=== PATIENT | female | born 1955 | race Caucasian/White ===

== ENCOUNTER → 2016-07-04 | Outpatient (CLI) | payer OTHER ==
[~2016-07-04] MED LIST: GADOBUTROL 10 ML VIAL IVP ONE
== END ==
LOC: FIMAGING 08:28
PROVIDERS: ATTEND Physician Assistant
DX: M99.73 Connective tissue and disc stenosis of intervertebral foramina of lumbar region (principal); M51.27 Other intervertebral disc displacement, lumbosacral region; Z98.1 Arthrodesis status
CPT/HCPCS: A9585

== ENCOUNTER 2016-10-25 16:02 | Inpatient (IN) | payer OTHER ==
[2016-10-25] MEDS ORDERED: fentaNYL 100 MCG/2 ML INJ IVP ONE (16:32)
[2016-10-25] MEDS ORDERED: ONDANSETRON 4 MG/2 ML VIAL IVP ONE (16:32)
--- NOTE | 2016-10-25 16:34 | EDPHY ---
H & P Time Seen by Provider: 10/25/16 16:23 HPI/ROS: CHIEF COMPLAINT: Abdominal pain HISTORY OF PRESENT ILLNESS: Patient developed vomiting and diarrhea 2 days ago and then generalized abdominal cramping and pain. Today the vomiting has subsided but she still had diarrhea about 10-20 times with no blood or melena. She has now moderate to severe right lower quadrant abdominal pain associated with a fever to 101.6. It does not radiate but it is worse with any movement walking or palpation. REVIEW OF SYSTEMS: Eye: no change in vision ENT: no sore throat Cardiac: no chest pain or syncope Pulmonary: no cough or SOB Abdomen: HPI Musculoskeletal: no back pain Skin: no rash Neuro: no headache Constitutional: HPI : no urinary symptoms A comprehensive 10 point review of systems is otherwise negative aside from elements mentioned in the history of present illness. PAST MEDICAL HISTORY: x2, hypertension, spinal fusion, knee replacements bilateral. Social history: Here with her parents, no alcohol General Appearance: Alert and conversant, cooperative. Eyes: No scleral icterus. ENT, Mouth: Dry mucous membranes. Respiratory: Normal respiratory effort, breath sounds equal, lungs are clear to auscultation. Cardiovascular: Regular rate and rhythm. Gastrointestinal: Right lower quadrant and right upper quadrant guarding, very tender. Bowel sounds are decreased. Neurological: Alert and oriented x3. Normally conversant. Face symmetric, normal movement and sensation in all extremities. Skin: Warm and dry, no rashes. Musculoskeletal: No peripheral edema and no joint swelling. Psychiatric: Not agitated. Emergency Department course/MDM: Clinically dehydrated, normal saline 1 L and fentanyl 100 mcg and Zofran 4 mg IV. I-STAT and CT scanning discussed and consented. 1810: CT per i shows diverticulitis with SBO. Results discussed with the patient after CT resulted. Additional 1 mg IV Dilaudid. Creatinine more likely related to dehydration. Patient's diarrhea clinically does not fit with radiologist diagnosis of bowel obstruction. Invanz 1 g IV. Admission to hospitalist with General surgery consultation. Smoking Status: Never smoked Constitutional: Initial Vital Signs Temperature (C) 36.8 C 10/25/16 16:11 Heart Rate 110 H 10/25/16 16:11 Respiratory Rate 20 10/25/16 16:11 Blood Pressure 109/69 10/25/16 16:11 O2 Sat (%) 97 10/25/16 16:11 O2 Delivery Mode Room Air Allergies/Adverse Reactions: SEASONAL Allergy (Mild, Uncoded 10/25/16 16:09) Congestion Home Medications: Medication Instructions Recorded Acetaminophen [Tylenol 325mg (*)] 650 mg PO Q4-6PRN PRN 10/25/16 Aspirin EC [Aspirin EC 81 mg (*)] 81 mg PO DAILY 10/25/16 Herbals/Supplements -Info Only 1 ea PO DAILY 10/25/16 Ibuprofen [Motrin (*)] 600 mg PO Q4-6PRN PRN 10/25/16 Lisinopril [Zestril 20 mg (*)] 20 mg PO DAILY 10/25/16 Meloxicam 15 mg PO DAILY 10/25/16 [place]-3 Fatty Acids [Fish Oil 1000 1,000 mg PO DAILY 10/25/16 mg (*)] amLODIPine BESYLATE [Norvasc 2.5 2.5 mg PO DAILY 10/25/16 mg (*)] Medical Decision Making - Diagnostics Imaging Results: Imaging Impressions Abdomen/Pelvis CT 10/25/16 17:02 Impression: 1. Acute sigmoid diverticulitis with inflammatory changes throughout the mesentery resulting in small bowel obstruction. 2. No drainable abscess or pneumoperitoneum. 3. Prior cholecystectomy without biliary ductal dilation. 4. Nonobstructive right nephrolithiasis. 5. Atherosclerotic aorta without aneurysm. Attention: This CT examination is specifically designed to evaluate patients who are clinically suspected of having acute obstructive uropathy. This examination does not use radiographic contrast, and as such, provides only a limited evaluation of the abdomen, pelvis and retroperitoneum. If there is further clinical suspicion for pathological conditions other than obstructive uropathy, a complete CT evaluation of the abdomen and pelvis utilizing intravenous, oral, and rectal contrast should be considered. Findings and recommendations discussed with Emergency Department physician, Bjorn Sherwood at 1810 hour, 10/25/2016. Final report concurs with initial preliminary interpretation. Differential Diagnosis: Differential considered including but not limited to diverticulitis, perforated intestine, appendicitis, gastroenteritis. Consult/Admit Bed Type: [facility], Lupe Anguiano will consult - Data Points Laboratory Results: Laboratory Results 10/25/16 16:53 10/25/16 18:11 10/25/16 10/25/16 10/25/16 18:11 16:53 16:53 WBC 20.24 10^3/uL H 10^3/uL (3.80-9.50) RBC 4.00 10^6/uL L 10^6/uL (4.18-5.33) Hgb 12.7 g/dL g/dL (12.6-16.3) POC Hgb Hct 37.6 % L % (38.0-47.0) POC Hct MCV 94.0 fL fL (81.5-99.8) MCH 31.8 pg pg (27.9-34.1) MCHC 33.8 g/dL g/dL (32.4-36.7) RDW 12.7 % % (11.5-15.2) Plt Count 426 10^3/uL H 10^3/uL (150-400) MPV 10.0 fL fL (8.7-11.7) Neut % (Auto) 82.6 % H % (39.3-74.2) Lymph % (Auto) 9.5 % L % (15.0-45.0) [place] % (Auto) 6.9 % % (4.5-13.0) Eos % (Auto) 0.1 % L % (0.6-7.6) Baso % (Auto) 0.3 % % (0.3-1.7) Nucleat RBC Rel Count 0.0 % % (0.0-0.2) Absolute Neuts (auto) 16.72 10^3/uL H 10^3/uL (1.70-6.50) Absolute Lymphs (auto) 1.92 10^3/uL 10^3/uL (1.00-3.00) Absolute Monos (auto) 1.39 10^3/uL H 10^3/uL (0.30-0.80) Absolute Eos (auto) 0.03 10^3/uL 10^3/uL (0.03-0.40) Absolute Basos (auto) 0.06 10^3/uL 10^3/uL (0.02-0.10) Absolute Nucleated RBC 0.00 10^3/uL 10^3/uL (0-0.01) Immature Gran % 0.6 % % (0.0-1.1) Immature Gran # 0.12 10^3/uL H 10^3/uL (0.00-0.10) POC Sodium Sodium 138 mEq/L mEq/L TNP (134-144) POC Potassium Potassium 3.6 mEq/L mEq/L TNP (3.5-5.2) POC Chloride Chloride 98 mEq/L mEq/L TNP (97-110) Carbon Dioxide 25 mEq/l mEq/l TNP (22-31) Anion Gap 15 mEq/L mEq/L TNP (8-16) POC BUN BUN 32 mg/dL H mg/dL TNP (7-23) Creatinine 2.1 mg/dL H mg/dL TNP (0.6-1.0) POC Creatinine Estimated GFR 24 TNP Glucose 90 mg/dL mg/dL TNP (70-100) POC Glucose Calcium 9.2 mg/dL mg/dL TNP (8.5-10.4) Total Bilirubin 1.8 mg/dL H mg/dL TNP (0.1-1.4) Conjugated Bilirubin 1.3 mg/dL H mg/dL TNP (0.0-0.5) Unconjugated Bilirubin 0.5 mg/dL mg/dL TNP (0.0-1.1) AST 28 IU/L IU/L TNP (14-46) ALT 48 IU/L IU/L TNP (9-52) Alkaline Phosphatase 122 IU/L IU/L TNP (38-126) Total Protein 6.6 g/dL g/dL TNP (6.3-8.2) Albumin 3.7 g/dL g/dL TNP (3.5-5.0) Lipase 45 IU/L IU/L TNP (23-300) 10/25/16 16:50 WBC RBC Hgb POC Hgb 13.3 gm/dL gm/dL (12.6-16.3) Hct POC Hct 39 % % (38-47) MCV MCH MCHC RDW Plt Count MPV Neut % (Auto) Lymph % (Auto) [place] % (Auto) Eos % (Auto) Baso % (Auto) Nucleat RBC Rel Count Absolute Neuts (auto) Absolute Lymphs (auto) Absolute Monos (auto) Absolute Eos (auto) Absolute Basos (auto) Absolute Nucleated RBC Immature Gran % Immature Gran # POC Sodium 137 mEq/L mEq/L (134-144) Sodium POC Potassium 5.0 mEq/L mEq/L (3.3-5.0) Potassium POC Chloride 99 mEq/L mEq/L (97-110) Chloride Carbon Dioxide Anion Gap POC BUN 43 mg/dL H mg/dL (7-23) BUN Creatinine POC Creatinine 2.1 mg/dL H mg/dL (0.6-1.0) Estimated GFR Glucose POC Glucose 102 mg/dL H mg/dL (70-100) Calcium Total Bilirubin Conjugated Bilirubin Unconjugated Bilirubin AST ALT Alkaline Phosphatase Total Protein Albumin Lipase Medications Given: Discontinued Medications Fentanyl (Sublimaze) 100 mcg IVP EDNOW ONE Stop: 10/25/16 16:33 Last Admin: 10/25/16 17:12 Dose: 100 mcg Hydromorphone HCl (Dilaudid) 1 mg IVP EDNOW ONE Stop: 10/25/16 18:27 Last Admin: 10/25/16 18:33 Dose: 1 mg Sodium Chloride (Ns) 1,000 mls @ 0 mls/hr IV EDNOW ONE; Wide Open PRN Reason: Protocol Stop: 10/25/16 16:33 Last Admin: 10/25/16 17:14 Dose: 1,000 mls Sodium Chloride (Ns) 1,000 mls @ 0 mls/hr IV EDNOW ONE; Wide Open PRN Reason: Protocol Stop: 10/25/16 17:03 Last Admin: 10/25/16 17:15 Dose: 1,000 mls Ertapenem 1 gm/ Sodium (Chloride) 100 mls @ 200 mls/hr IV EDNOW ONE PRN Reason: Protocol Stop: 10/25/16 18:55 Last Admin: 10/25/16 18:59 Dose: 100 mls Ondansetron HCl (Zofran) 4 mg IVP EDNOW ONE Stop: 10/25/16 16:33 Last Admin: 10/25/16 17:12 Dose: 4 mg Point of Care Test Results: 10/25/16 16:50 POC Sodium 137 POC Potassium 5.0 POC Chloride 99 POC BUN 43 H POC Creatinine 2.1 H POC Glucose 102 H Departure - Departure Disposition: [facility] Inpatient Acute Clinical Impression: Diverticulitis large intestine Qualifiers: Diverticulitis bleeding: without bleeding Diverticulitis complication: without perforation or abscess Qualified Code(s): K57.32 - Diverticulitis of large intestine without perforation or abscess without bleeding Condition: Good
[2016-10-25] MEDS ORDERED: NS 1,000 ML IV ONE ×2 (17:02→18:26)
[2016-10-25 17:07] LABS: % IMMATURE GRANULYOCYTES 0.6 % (0.0-1.1); ABSOLUTE IMMATURE GRANULOCYTES 0.12 10^3/uL (0.00-0.10); ADD DIFF? NO; ADD MORPH? NO; ADD SCAN? NO; ATYPICAL LYMPHOCYTE FLAG 0 (0-99); FRAGMENT RBC FLAG 0 (0-99); HEMATOCRIT 37.6 % (38.0-47.0); HEMOGLOBIN 12.7 g/dL (12.6-16.3); LEFT SHIFT FLG 20 (0-99); LIPEMIA HEMOLYSIS FLAG 90 (0-99); MEAN CELL HEMOGLOBIN 31.8 pg (27.9-34.1); MEAN CELL HEMOGLOBIN CONCENTR. 33.8 g/dL (32.4-36.7); PLATELET CLUMPS FLAG 10 (0-99); PLATELET COUNT 426 10^3/uL (150-400); RED CELL DISTRIBUTION WIDTH 12.7 % (11.5-15.2)
[2016-10-25] MEDS: NS 1,000 ML IV ONE ×2 (17:08→17:14)
[2016-10-25] MEDS ORDERED: ERTAPENEM 1 GM in NS 100 ML IV ONE (18:26)
[2016-10-25] MEDS ORDERED: HYDROmorphONE/DILAUDID 1 MG/ML INJ IVP ONE (18:26)
[2016-10-25 18:42] LABS: ALANINE AMINOTRANSFERASE 48 IU/L (9-52); ALBUMIN 3.7 g/dL (3.5-5.0); ALKALINE PHOSPHATASE 122 IU/L (38-126); ANION GAP 15 mEq/L (8-16); ASPARTATE AMINOTRANSFERASE 28 IU/L (14-46); BILIRUBIN,TOTAL 1.8 mg/dL (0.1-1.4); BILIRUBIN-CONJUGATED 1.3 mg/dL (0.0-0.5); BILIRUBIN-UNCONJUGATED 0.5 mg/dL (0.0-1.1); CALCIUM 9.2 mg/dL (8.5-10.4); CARBON DIOXIDE 25 mEq/l (22-31); CHLORIDE 98 mEq/L (97-110); CREATININE 2.1 mg/dL (0.6-1.0); GLOMERULAR FILTRATION RATE 24; GLUCOSE 90 mg/dL (70-100); POTASSIUM 3.6 mEq/L (3.5-5.2); SODIUM 138 mEq/L (134-144); TOTAL PROTEIN 6.6 g/dL (6.3-8.2)
--- NOTE | 2016-10-25 20:47 | GHP ---
[f rep st] HISTORY AND PHYSICAL DATE OF ADMISSION: 10/25/2016 CHIEF COMPLAINT: A 61-year-old female with a history of hypertension, presenting with nausea, vomiting, diarrhea. These symptoms have been persistent for the last 3 days. She has been unable to keep anything down. Yesterday, she had up to 10 watery stools without blood. Reports fevers, chills , sweats, with temperatures up to 101.7. Also, headache and myalgias. No recent antibiotics no recent travel. Actually, her is hot been hospitalized here, so she has been in and out the hospital. She states that she has been taking care of herself as much and eating a lot of fast food. She did have a [employer] salad 4 days ago that she said has been in the refrigerator for a couple days before eating. REVIEW OF SYSTEMS: I completed a 10-point review of systems. Negative, except as noted in the HPI. PAST MEDICAL HISTORY: 1. Hypertension. 2. Lumbar back pain. PAST SURGICAL HISTORY: 1. Achilles tendon repair. 2. Lumbar back surgery. 3. Carpal tunnel release. 4. . 5. Cholecystectomy. 6. TKA. SOCIAL HISTORY: [place] with her . No alcohol, tobacco, or illicits. FAMILY HISTORY: Father with diverticulitis and CAD with stent. Mother with CAD with stents. MEDICATIONS: Norvasc 2.5 mg daily, lisinopril 20 mg daily, Meloxicam started recently 3 weeks ago for back pain. PHYSICAL EXAM: VITAL SIGNS: Temperature 36.8, blood pressure 106/71, heart rate is 90-110, respirations 18, 96% on room air. GENERAL: An overweight female, ill-appearing, lying in bed. Mildly diaphoretic. HEENT: Dry mucous membranes. Oropharynx clear. CV: Regular rate and rhythm. No murmurs, gallops, or rubs. LUNGS: Clear to auscultation anteriorly. ABDOMEN: Obese. Right lower quadrant and epigastric tenderness with palpation. No rebound or guarding. Quiet bowel sounds throughout. MUSCULOSKELETAL: 5/5 upper and lower extremity strength. NEUROLOGIC: 2 through 12 intact. PSYCHIATRIC: Alert and oriented x3. LABS: WBC 20, hemoglobin 12, hematocrit 37, platelets 426. Sodium 138, potassium 3.8, chloride 98, carbon dioxide 25, BUN 32, creatinine 2.1 (baseline is 0.7). Total bilirubin 1.8 (conjugated 1.3). Abdomen and pelvis CT: Acute sigmoid diverticulitis with inflammatory changes throughout the mesentery, resulting in small bowel obstruction. No adrenal abscess or pneumoperitoneum. Nonobstructive right nephrolithiasis, atherosclerotic aorta without aneurysm, ASSESSMENT AND PLAN: 1. Acute, non-perforated diverticulitis: Patient with elevated white count and significant abdominal pain. Will treat with IV antibiotics, bowel rest, and antiemetics. Dr. Anguiano with Surgery will consult. 2. Leukocytosis: Secondary to diverticulitis. 3. Sepsis: due to diverticulitis. Elevated WBC, tachycardia. 4. Acute diarrhea: Possible bacterial infection. GI PCR pending. 5. Acute kidney injury: Creatinine 2 (baseline is 0.07). This is due to gastrointestinal losses, as well as decreased p.o. intake. Will hydrate with fluids and repeat in the morning. 6. Acute abdominal pain: Secondary to above. Will treat with IV Dilaudid renally dosed. 7. Mild hyperbilirubinemia secondary to gastrointestinal process. Will repeat. 8. Mild hypotension: Secondary to severe dehydration. Hold antihypertensive. 9. Diet: NPO, IV fluids. 10. Deep venous thrombosis prophylaxis: Sequential compression devices. Disposition: The patient warrants inpatient hospitalization given acute diverticulitis, leukocytosis, acute kidney injury, requiring IV fluids and antibiotics. /[id number]/MODL MTDD
[2016-10-25] MEDS: HYDROmorphONE/DILAUDID 1 MG/ML INJ IVP PRN (22:17)
[2016-10-25] MEDS: ONDANSETRON 4 MG/2 ML VIAL IVP PRN (22:17)
[2016-10-25] MEDS: NS 1,000 ML IV SCH (22:27)
--- NOTE | 2016-10-26 01:44 | SOAPPROG ---
SOAP Progress Note Assessment/Plan: Assessment: 61 FEMALE WITH RLQ PAIN AND TENDERNESS 2/2 DIVERTICULITIS/ APPENDIX APPEARS OK ON CT NO PRIOR HX OF DIVERTICULITIS HEENT NONICTERIC CHEST CLEAR COR RR ABD SOFT, TENDER RLQ Plan:OBS, ON ABX, NPO/ SURGERY IF WORSENING 10/26/16 01:41 Objective: Vital Signs Temp Pulse Resp BP Pulse Ox 36.8 C 83 18 102/61 97 10/25/16 23:55 10/25/16 23:55 10/25/16 23:55 10/25/16 23:55 10/25/16 23:55 10/24/16 10/25/16 10/26/16 05:59 05:59 05:59 Intake Total 2400 Balance 2400 ICD10 Worksheet Patient Problems: Problems Problem Status Onset Diverticulitis large intestine Acute Osteoarthritis of knee Acute
[2016-10-26] MEDS: HYDROmorphONE/DILAUDID 1 MG/ML INJ IVP PRN ×6 (02:05→22:49)
[2016-10-26 02:39] LABS: COLOR AMBER; LEUKOCYTE ESTERASE,URINE 2+ (NEGATIVE); NITRITE,URINE NEGATIVE (NEGATIVE)
[2016-10-26 02:57] LABS: BACTERIA 1+ /hpf (NONE SEEN); MUCUS 1+ /lpf (NONE-1+); WBC,URINE 50-182 /hpf (0-3)
[2016-10-26 05:12] LABS: HEMATOCRIT 33.5 % (38.0-47.0); HEMOGLOBIN 10.8 g/dL (12.6-16.3); MEAN CELL HEMOGLOBIN 31.5 pg (27.9-34.1); MEAN CELL HEMOGLOBIN CONCENTR. 32.2 g/dL (32.4-36.7); MEAN CELL VOLUME 97.7 fL (81.5-99.8); RED BLOOD CELL COUNT 3.43 10^6/uL (4.18-5.33); RED CELL DISTRIBUTION WIDTH 12.8 % (11.5-15.2)
[2016-10-26] MEDS: NS 1,000 ML IV SCH (05:15)
[2016-10-26 05:29] LABS: ALANINE AMINOTRANSFERASE 39 IU/L (9-52); ALBUMIN 3.1 g/dL (3.5-5.0); ALKALINE PHOSPHATASE 108 IU/L (38-126); ANION GAP 14 mEq/L (8-16); ASPARTATE AMINOTRANSFERASE 29 IU/L (14-46); BILIRUBIN,TOTAL 1.2 mg/dL (0.1-1.4); CALCIUM 8.3 mg/dL (8.5-10.4); CARBON DIOXIDE 20 mEq/l (22-31); CHLORIDE 106 mEq/L (97-110); GLOMERULAR FILTRATION RATE 57; GLUCOSE 79 mg/dL (70-100); POTASSIUM 3.6 mEq/L (3.5-5.2); SODIUM 140 mEq/L (134-144); TOTAL PROTEIN 5.7 g/dL (6.3-8.2)
[2016-10-26] MEDS: ERTAPENEM 1 GM in NS 100 ML IV SCH (08:06)
[2016-10-26] MEDS: ONDANSETRON 4 MG/2 ML VIAL IVP PRN ×2 (08:06→20:03)
[2016-10-26] MEDS ORDERED: ENOXAPARIN 40 MG/0.4 ML SYR SC SCH (09:00)
--- NOTE | 2016-10-26 13:48 | HOSPPROG ---
Hospitalist Progress Note Assessment/Plan: 1. Acute, non perforated diverticulitis with sepsis (abnl WBC, tachycardia) -continue NPO, IVF, discussed care plan with surgery -may need surgical intervention, will continue with obs for now -diarrhea improved, GI panel pending 2. SBO -IVF, NPO -appreciate surgery assistance 3. OCTAVIO -creatinine normalized with IVF -watch closely 4. chronic lumbar pain -hold meloxicam 5. HTN -home meds 6. Anemia -watch for stability -no active signs bleeding PCP FULL CODE DVT prophy- TEDS/SCDs, hold pharm as possible surgical itervention DISPO- > 2 mdnts because of need for IV abx, sepsis Subjective: Less diarrhea but still in pain. Very dry mouth (has xerostomia t baseline). No n/v. on second floor inpt! Objective: Vital Signs Temp Pulse Resp BP Pulse Ox 98.5 F 93 16 106/66 93 10/26/16 09:03 10/26/16 09:03 10/26/16 09:03 10/26/16 09:03 10/26/16 09:03 Laboratory Results 10/26/16 05:06 10/26/16 05:06 10/25/16 10/26/16 10/27/16 11:59 11:59 11:59 Intake Total 3272 Output Total 600 Balance 2672 - Time Spent With Patient Time Spent with Patient: greater than 25 minutes Time Spent with Patient: Greater than 25 minutes spent on this patients care, greater than 50% of time spent counseling, educating, and coordinating care regarding the above mentioned plan. - Pending Discharge Pending Discharge Within 24 Hours: No - Physical Exam Constitutional: no apparent distress, appears nourished, obese, uncomfortable Eyes: anicteric sclera, EOMI Ears, Nose, Mouth, Throat: hearing normal, other (dry MM) Cardiovascular: regular rate and rhythym, no murmur, rub, or gallop, No edema Respiratory: no respiratory distress, no rales or rhonchi, clear to auscultation Gastrointestinal: tenderness (throughout), No guarding, No rebound, No distension Skin: warm Psychiatric: interacting appropriately, not anxious, not encephalopathic, thought process linear ICD10 Worksheet Patient Problems: Problems Problem Status Onset Diverticulitis large intestine Acute Osteoarthritis of knee Acute
[2016-10-26] MEDS ORDERED: MBX SOLN 30 ML BOTTLE PO PRN (14:08)
[2016-10-26] MEDS ORDERED: ORAL BALANCE GEL TUBE PO PRN (14:08)
--- NOTE | 2016-10-26 14:49 | SOAPPROG ---
[facility] Progress Note Assessment/Plan: Assessment/Plan: 61 Y F with probable sigmoid diverticulitis with significant inflammation of mesentery. C/o RLQ pain. Afebrile,WBC's trending down, but pain seems slightly worse to patient. Diarrhea stopped. Cannot r/o need for surgery at this point. Continue NPO. Will discuss with Dr. Anguiano right away. S: IV pain meds seem to to help as much. nausea improved with meds. diarrhea stopped. O: alert, mild distres--just appears uncomfortable ctab rrr abd obese, soft, +RLQ>RUQ tenderness. rare BS. 10/26/16 14:40 Objective: Vital Signs Temp Pulse Resp BP Pulse Ox 36.9 C 93 16 106/66 93 10/26/16 09:03 10/26/16 09:03 10/26/16 09:03 10/26/16 09:03 10/26/16 09:03 Laboratory Results 10/26/16 05:06 10/26/16 05:06 10/25/16 10/26/16 10/27/16 05:59 05:59 05:59 Intake Total 3272 Output Total 600 Balance 2672 ICD10 Worksheet Patient Problems: Problems Problem Status Onset Diverticulitis large intestine Acute Osteoarthritis of knee Acute
[2016-10-26] MEDS: BIOTENE DRY MOUTH MOUTHWASH 237 ML BTL MM PRN (15:51)
[2016-10-26] MEDS: D5W 1/2 NS 1,000 ML IV SCH (20:52)
[2016-10-27] MEDS: HYDROmorphONE/DILAUDID 1 MG/ML INJ IVP PRN ×3 (02:33→09:04)
[2016-10-27] MEDS: ONDANSETRON 4 MG/2 ML VIAL IVP PRN ×3 (02:44→23:42)
[2016-10-27] MEDS: D5W 1/2 NS 1,000 ML IV SCH ×2 (05:27→18:05)
[2016-10-27 05:52] LABS: % IMMATURE GRANULYOCYTES 1.1 % (0.0-1.1); ABSOLUTE IMMATURE GRANULOCYTES 0.12 10^3/uL (0.00-0.10); ADD DIFF? NO; ADD MORPH? NO; ADD SCAN? NO; ATYPICAL LYMPHOCYTE FLAG 0 (0-99); FRAGMENT RBC FLAG 0 (0-99); HEMATOCRIT 32.9 % (38.0-47.0); HEMOGLOBIN 10.6 g/dL (12.6-16.3); LEFT SHIFT FLG 10 (0-99); LIPEMIA HEMOLYSIS FLAG 80 (0-99); MEAN CELL HEMOGLOBIN 31.6 pg (27.9-34.1); MEAN CELL HEMOGLOBIN CONCENTR. 32.2 g/dL (32.4-36.7); MEAN CELL VOLUME 98.2 fL (81.5-99.8); MEAN PLATELET VOLUME 9.3 fL (8.7-11.7); PLATELET CLUMPS FLAG 0 (0-99); PLATELET COUNT 354 10^3/uL (150-400); RED BLOOD CELL COUNT 3.35 10^6/uL (4.18-5.33); RED CELL DISTRIBUTION WIDTH 13.2 % (11.5-15.2)
[2016-10-27 06:10] LABS: ALANINE AMINOTRANSFERASE 36 IU/L (9-52); ALBUMIN 2.9 g/dL (3.5-5.0); ALKALINE PHOSPHATASE 112 IU/L (38-126); ANION GAP 10 mEq/L (8-16); ASPARTATE AMINOTRANSFERASE 29 IU/L (14-46); BILIRUBIN,TOTAL 1.1 mg/dL (0.1-1.4); CALCIUM 8.5 mg/dL (8.5-10.4); CARBON DIOXIDE 25 mEq/l (22-31); CHLORIDE 104 mEq/L (97-110); CREATININE 0.8 mg/dL (0.6-1.0); GLOMERULAR FILTRATION RATE > 60; GLUCOSE 112 mg/dL (70-100); POTASSIUM 3.8 mEq/L (3.5-5.2); SODIUM 139 mEq/L (134-144); TOTAL PROTEIN 5.5 g/dL (6.3-8.2)
[2016-10-27] MEDS ORDERED: LISINOPRIL 20 MG TAB PO SCH (09:00)
[2016-10-27] MEDS: ERTAPENEM 1 GM in NS 100 ML IV SCH (09:05)
--- NOTE | 2016-10-27 09:51 | SOAPPROG ---
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
--- NOTE | 2016-10-27 16:50 | HOSPPROG ---
Hospitalist Progress Note Assessment/Plan: * Acute diverticulitis -Invanz * Severe Sepsis - due to above * SBO - improved -d/w Dr. Anguiano - okay to advance to clears * HTN -continue Norvasc * ARF - resolved Subjective: Much better this afternoon. Pain decreased Objective: Vital Signs Temp Pulse Resp BP Pulse Ox 36.9 C 74 16 113/72 98 10/27/16 12:26 10/27/16 12:26 10/27/16 12:26 10/27/16 12:26 10/27/16 12:26 Microbiology 10/27/16 08:57 Gastrointestinal Tract Panel (PCR) - Final Stool No Organism Detected Laboratory Results 10/27/16 05:31 10/27/16 05:31 10/26/16 10/27/16 10/28/16 05:59 05:59 05:59 Intake Total 3272 2432 Output Total 600 1900 Balance 2672 532 using iv DILAUDID FOR PAIN CT reviewed - acute diverticulitis with SBO - Physical Exam Constitutional: no apparent distress, appears nourished, not in pain Cardiovascular: regular rate and rhythym, no murmur, rub, or gallop Respiratory: no respiratory distress, no rales or rhonchi, clear to auscultation Gastrointestinal: normoactive bowel sounds, soft, non-tender abdomen, no palpable masses Skin: no rashes or abrasions, no fluctuance, no induration Neurologic: AAOx3, sensation intact bilaterally Psychiatric: interacting appropriately, not anxious, not encephalopathic, thought process linear ICD10 Worksheet Patient Problems: Problems Problem Status Onset Diverticulitis large intestine Acute Osteoarthritis of knee Chronic
[2016-10-27] MEDS: ACETAMINOPHEN 325 MG TAB PO PRN (18:05)
[2016-10-28] MEDS: D5W 1/2 NS 1,000 ML IV SCH (02:15)
[2016-10-28] MEDS: ACETAMINOPHEN 325 MG TAB PO PRN ×3 (04:52→19:04)
[2016-10-28] MEDS: ONDANSETRON 4 MG/2 ML VIAL IVP PRN ×2 (04:52→09:42)
[2016-10-28 05:45] LABS: % IMMATURE GRANULYOCYTES 1.4 % (0.0-1.1); ABSOLUTE IMMATURE GRANULOCYTES 0.14 10^3/uL (0.00-0.10); ADD DIFF? NO; ADD MORPH? NO; ADD SCAN? NO; ATYPICAL LYMPHOCYTE FLAG 30 (0-99); FRAGMENT RBC FLAG 0 (0-99); HEMATOCRIT 32.4 % (38.0-47.0); HEMOGLOBIN 10.5 g/dL (12.6-16.3); LEFT SHIFT FLG 10 (0-99); LIPEMIA HEMOLYSIS FLAG 80 (0-99); MEAN CELL HEMOGLOBIN 31.5 pg (27.9-34.1); MEAN CELL HEMOGLOBIN CONCENTR. 32.4 g/dL (32.4-36.7); MEAN CELL VOLUME 97.3 fL (81.5-99.8); PLATELET CLUMPS FLAG 0 (0-99); PLATELET COUNT 354 10^3/uL (150-400); RED BLOOD CELL COUNT 3.33 10^6/uL (4.18-5.33); RED CELL DISTRIBUTION WIDTH 13.1 % (11.5-15.2)
[2016-10-28 06:00] LABS: ANION GAP 11 mEq/L (8-16); CALCIUM 8.6 mg/dL (8.5-10.4); CARBON DIOXIDE 24 mEq/l (22-31); CHLORIDE 101 mEq/L (97-110); CREATININE 0.7 mg/dL (0.6-1.0); GLOMERULAR FILTRATION RATE > 60; GLUCOSE 122 mg/dL (70-100); POTASSIUM 3.5 mEq/L (3.5-5.2); SODIUM 136 mEq/L (134-144)
[2016-10-28] MEDS: ERTAPENEM 1 GM in NS 100 ML IV SCH (09:29)
[2016-10-28] MEDS: ASPIRIN EC 81 MG TAB PO SCH (09:29)
--- NOTE | 2016-10-28 13:07 | HOSPPROG ---
Hospitalist Progress Note Assessment/Plan: * Acute diverticulitis -Invanz * Severe Sepsis - due to above * SBO - due to inflammation of acute diverticulitis -clinically improved - flatus/BM -check KUB -advance diet slowly * HTN -continue Norvasc * ARF - resolved * Obesity - BMI 36 Subjective: Diarrhea last night. Tolerating clear liquids although they did make her feel full. Got hungry for sandwich last night. Objective: Vital Signs Temp Pulse Resp BP Pulse Ox 36.9 C 75 16 120/82 H 94 10/28/16 12:33 10/28/16 12:33 10/28/16 12:33 10/28/16 12:33 10/28/16 12:33 Microbiology 10/27/16 08:57 Gastrointestinal Tract Panel (PCR) - Final Stool No Organism Detected Laboratory Results 10/28/16 05:34 10/28/16 05:34 10/27/16 10/28/16 10/29/16 05:59 05:59 05:59 Intake Total 2432 100 Output Total 1900 500 Balance 532 -400 - Physical Exam Constitutional: no apparent distress, appears nourished, not in pain Cardiovascular: regular rate and rhythym, no murmur, rub, or gallop Respiratory: no respiratory distress, no rales or rhonchi, clear to auscultation Gastrointestinal: normoactive bowel sounds, soft, non-tender abdomen, no palpable masses Skin: no rashes or abrasions, no fluctuance, no induration Neurologic: AAOx3, sensation intact bilaterally Psychiatric: interacting appropriately, not anxious, not encephalopathic, thought process linear ICD10 Worksheet Patient Problems: Problems Problem Status Onset Diverticulitis large intestine Acute Osteoarthritis of knee Chronic
--- NOTE | 2016-10-28 13:40 | SOAPPROG ---
SOAP Progress Note Assessment/Plan: Assessment: 61 yo female with probable sigmoid diverticulitis with significant inflammation of mesentary who is complaining of RLQ abdominal pain and nausea. Afebrile, WBC trending down Continue pain control Continue clear liquid diet Continue abx Appreciate hospitalist S: Pain improved today. States she can now push on her belly without severe pain. Had one episode of diarrhea last night, none today. Tolerating clears. Denied N/V, F/C. O: Patient sitting up in chair, NAD Afebrile No increased WOB Abdomen obese, hard and mildly TTP in the RLQ +BS Objective: Vital Signs Temp Pulse Resp BP Pulse Ox 36.9 C 75 16 120/82 H 94 10/28/16 12:33 10/28/16 12:33 10/28/16 12:33 10/28/16 12:33 10/28/16 12:33 Microbiology 10/27/16 08:57 Gastrointestinal Tract Panel (PCR) - Final Stool No Organism Detected Laboratory Results 10/28/16 05:34 10/28/16 05:34 10/27/16 10/28/16 10/29/16 05:59 05:59 05:59 Intake Total 2432 100 Output Total 1900 500 Balance 532 -400 ICD10 Worksheet Patient Problems: Problems Problem Status Onset Diverticulitis large intestine Acute Osteoarthritis of knee Chronic
[2016-10-28] MEDS: ONDANSETRON DISINTEGRATING 4 MG TAB PO PRN (22:08)
[2016-10-29] MEDS: ACETAMINOPHEN 325 MG TAB PO PRN ×3 (04:17→23:03)
[2016-10-29 05:17] LABS: ABSOLUTE NRBC COUNT 0.03 10^3/uL (0-0.01); ADD DIFF? YES; ADD MORPH? NO; FRAGMENT RBC FLAG 0 (0-99); HEMATOCRIT 31.8 % (38.0-47.0); HEMOGLOBIN 10.1 g/dL (12.6-16.3); LEFT SHIFT FLG 30 (0-99); LIPEMIA HEMOLYSIS FLAG 80 (0-99); MEAN CELL HEMOGLOBIN CONCENTR. 31.8 g/dL (32.4-36.7); MEAN CELL VOLUME 97.5 fL (81.5-99.8); MEAN PLATELET VOLUME 8.9 fL (8.7-11.7); NRBC-AUTO% 0.3 % (0.0-0.2); PLATELET CLUMPS FLAG 0 (0-99); PLATELET COUNT 366 10^3/uL (150-400); RED BLOOD CELL COUNT 3.26 10^6/uL (4.18-5.33)
[2016-10-29 05:18] LABS: ATYPICAL LYMPHOCYTE FLAG 110 (0-99)
[2016-10-29 05:19] LABS: ADD SCAN? NO
[2016-10-29 05:31] LABS: ANION GAP 9 mEq/L (8-16); CALCIUM 9.1 mg/dL (8.5-10.4); CARBON DIOXIDE 28 mEq/l (22-31); CHLORIDE 102 mEq/L (97-110); CREATININE 0.7 mg/dL (0.6-1.0); GLOMERULAR FILTRATION RATE > 60; GLUCOSE 103 mg/dL (70-100); POTASSIUM 3.7 mEq/L (3.5-5.2); SODIUM 139 mEq/L (134-144)
[2016-10-29 06:04] LABS: PLATELET ESTIMATE ADEQUATE (ADEQ)
[2016-10-29] MEDS: ASPIRIN EC 81 MG TAB PO SCH (08:56)
[2016-10-29] MEDS: ERTAPENEM 1 GM in NS 100 ML IV SCH (08:58)
--- NOTE | 2016-10-29 10:31 | SOAPPROG ---
SOAP Progress Note Assessment/Plan: Assessment: 61 yo female with probable sigmoid diverticulitis with significant inflammation of mesentery who is complaining of RLQ abdominal pain and nausea. Afebrile, WBC trending down Continue pain control Continue clear liquid diet Continue abx Appreciate hospitalist S: Patient experiencing achy RLQ pain and nausea associated with consumption of her clear liquid diet. Having small amount of diarrhea today. Denied vomiting, F /C. O: Patient sitting up in chair, NAD Afebrile No increased WOB Abdomen obese, softening and mildly TTP in the RLQ +BS Objective: Vital Signs Temp Pulse Resp BP Pulse Ox 36.7 C 70 16 120/83 H 94 10/29/16 09:08 10/29/16 09:08 10/29/16 09:08 10/29/16 09:08 10/29/16 09:08 Laboratory Results 10/29/16 03:50 10/29/16 03:50 10/28/16 10/29/16 10/30/16 05:59 05:59 05:59 Intake Total 100 750 Output Total 500 200 Balance -400 550 ICD10 Worksheet Patient Problems: Problems Problem Status Onset Diverticulitis large intestine Acute Osteoarthritis of knee Chronic
--- NOTE | 2016-10-29 15:22 | HOSPPROG ---
Hospitalist Progress Note Assessment/Plan: * Acute diverticulitis -Invanz * Severe Sepsis - due to above * SBO - due to inflammation of acute diverticulitis -slow improvement -continue clear liquids * HTN -continue Norvasc * ARF - resolved * Obesity - BMI 36 Subjective: Some increased pain with PO last night. Objective: Vital Signs Temp Pulse Resp BP Pulse Ox 36.7 C 70 16 120/83 H 94 10/29/16 09:08 10/29/16 09:08 10/29/16 09:08 10/29/16 09:08 10/29/16 09:08 Laboratory Results 10/29/16 03:50 10/29/16 03:50 10/28/16 10/29/16 10/30/16 05:59 05:59 05:59 Intake Total 100 750 Output Total 500 200 Balance -400 550 - Physical Exam Constitutional: no apparent distress, appears nourished, not in pain Cardiovascular: regular rate and rhythym, no murmur, rub, or gallop Respiratory: no respiratory distress, no rales or rhonchi, clear to auscultation Gastrointestinal: normoactive bowel sounds, soft, non-tender abdomen, no palpable masses Skin: no rashes or abrasions, no fluctuance, no induration Neurologic: AAOx3, sensation intact bilaterally Psychiatric: interacting appropriately, not anxious, not encephalopathic, thought process linear ICD10 Worksheet Patient Problems: Problems Problem Status Onset Diverticulitis large intestine Acute Osteoarthritis of knee Chronic
[2016-10-30] MEDS: ACETAMINOPHEN 325 MG TAB PO PRN ×3 (03:43→20:18)
[2016-10-30 05:14] LABS: ABSOLUTE NRBC COUNT 0.07 10^3/uL (0-0.01); ADD DIFF? YES; ADD MORPH? NO; FRAGMENT RBC FLAG 0 (0-99); HEMOGLOBIN 10.1 g/dL (12.6-16.3); LEFT SHIFT FLG 40 (0-99); LIPEMIA HEMOLYSIS FLAG 80 (0-99); MEAN CELL HEMOGLOBIN 31.7 pg (27.9-34.1); MEAN CELL HEMOGLOBIN CONCENTR. 32.6 g/dL (32.4-36.7); MEAN CELL VOLUME 97.2 fL (81.5-99.8); MEAN PLATELET VOLUME 8.9 fL (8.7-11.7); NRBC-AUTO% 0.6 % (0.0-0.2); PLATELET CLUMPS FLAG 0 (0-99); PLATELET COUNT 438 10^3/uL (150-400); RED BLOOD CELL COUNT 3.19 10^6/uL (4.18-5.33); RED CELL DISTRIBUTION WIDTH 13.1 % (11.5-15.2)
[2016-10-30 05:26] LABS: ADD SCAN? NO; ATYPICAL LYMPHOCYTE FLAG 160 (0-99)
[2016-10-30 06:03] LABS: PLATELET ESTIMATE ADEQUATE (ADEQ)
[2016-10-30] MEDS: ASPIRIN EC 81 MG TAB PO SCH (09:03)
[2016-10-30] MEDS: ERTAPENEM 1 GM in NS 100 ML IV SCH (10:07)
--- NOTE | 2016-10-30 11:06 | SOAPPROG ---
SOAP Progress Note Assessment/Plan: Assessment/Plan: 61-year-old female with diverticulitis, improving Overnight, the patient had a T-max of 100.8, appears to be having fevers at night. Abdominal pain has completely subsided although she is minimally tender in the right lower quadrant with deep palpation but this is markedly improved from previous. Main complaint today is headache which appears to be better this morning. In addition, her white blood cell count is elevated today 11 from 9. This morning, she is tolerating a diet without any nausea. Given the events overnight, I would like to see how she does today but if she continues to tolerate the diet throughout the day today and does not have a fever tonight I would be okay with her going home tomorrow. 10/30/16 11:03 10/30/16 11:05 Subjective: Denies abdominal pain completely, complains now headache Objective: Vital Signs Temp Pulse Resp BP Pulse Ox 36.8 C 78 16 134/84 H 95 10/30/16 08:00 10/30/16 08:00 10/30/16 08:00 10/30/16 08:00 10/30/16 08:00 Laboratory Results 10/30/16 04:54 10/29/16 03:50 10/29/16 10/30/16 10/31/16 05:59 05:59 05:59 Intake Total 750 1100 Output Total 200 Balance 550 1100 ICD10 Worksheet Patient Problems: Problems Problem Status Onset Diverticulitis large intestine Acute Osteoarthritis of knee Chronic
--- NOTE | 2016-10-30 15:41 | HOSPPROG ---
Hospitalist Progress Note Assessment/Plan: * Acute diverticulitis -Invanz * Severe Sepsis - due to above * SBO - due to inflammation of acute diverticulitis -slow improvement -advance diet * HTN -continue Norvasc * ARF - resolved * Obesity - BMI 36 New low grade fever with night sweats last night. WBC up a little. Continue to monitor as inpatient. If worse fever or leukocytosis overnight, consider repeat CT a/p. If not, then consider discharge on PO antibiotics in am. Subjective: bad night. night sweats. Better again this am. BM are now formed, still lots of flatus Objective: Vital Signs Temp Pulse Resp BP Pulse Ox 36.8 C 71 16 129/77 H 100 10/30/16 15:30 10/30/16 15:30 10/30/16 15:30 10/30/16 15:30 10/30/16 15:30 Laboratory Results 10/30/16 04:54 10/29/16 03:50 10/29/16 10/30/16 10/31/16 05:59 05:59 05:59 Intake Total 750 1100 Output Total 200 Balance 550 1100 - Physical Exam Constitutional: no apparent distress, appears nourished, not in pain Cardiovascular: regular rate and rhythym, no murmur, rub, or gallop Respiratory: no respiratory distress, no rales or rhonchi, clear to auscultation Gastrointestinal: normoactive bowel sounds, soft, non-tender abdomen, no palpable masses Skin: no rashes or abrasions, no fluctuance, no induration Neurologic: AAOx3, sensation intact bilaterally Psychiatric: interacting appropriately, not anxious, not encephalopathic, thought process linear ICD10 Worksheet Patient Problems: Problems Problem Status Onset Diverticulitis large intestine Acute Osteoarthritis of knee Chronic
[2016-10-31] MEDS: ACETAMINOPHEN 325 MG TAB PO PRN ×5 (00:54→21:45)
[2016-10-31 04:51] LABS: ABSOLUTE NRBC COUNT 0.06 10^3/uL (0-0.01); ADD DIFF? YES; ADD MORPH? NO; FRAGMENT RBC FLAG 0 (0-99); HEMATOCRIT 31.7 % (38.0-47.0); HEMOGLOBIN 10.4 g/dL (12.6-16.3); LEFT SHIFT FLG 40 (0-99); LIPEMIA HEMOLYSIS FLAG 80 (0-99); MEAN CELL HEMOGLOBIN 31.8 pg (27.9-34.1); MEAN CELL HEMOGLOBIN CONCENTR. 32.8 g/dL (32.4-36.7); MEAN CELL VOLUME 96.9 fL (81.5-99.8); NRBC-AUTO% 0.5 % (0.0-0.2); PLATELET CLUMPS FLAG 0 (0-99); PLATELET COUNT 463 10^3/uL (150-400); RED BLOOD CELL COUNT 3.27 10^6/uL (4.18-5.33)
[2016-10-31 05:00] LABS: ADD SCAN? NO; ATYPICAL LYMPHOCYTE FLAG 120 (0-99)
[2016-10-31 05:33] LABS: PLATELET ESTIMATE INCREASED (ADEQ)
[2016-10-31 05:34] LABS: POLYCHROMASIA 1+
[2016-10-31] MEDS: ASPIRIN EC 81 MG TAB PO SCH (09:17)
[2016-10-31] MEDS: ERTAPENEM 1 GM in NS 100 ML IV SCH (09:17)
[2016-10-31] MEDS: ONDANSETRON 4 MG/2 ML VIAL IVP PRN ×2 (11:29→21:44)
[2016-10-31] MEDS: PROMETHAZINE HCL 25 MG/ML INJ IVP PRN (12:52)
--- NOTE | 2016-10-31 15:29 | HOSPPROG ---
Hospitalist Progress Note Assessment/Plan: * Acute diverticulitis -Invanz * Severe Sepsis - due to above * SBO - due to inflammation of acute diverticulitis -advanced to regular diet and patient with increased abd pain and nausea * HTN -continue Norvasc * ARF - resolved * Obesity - BMI 36 Due to recurrence of fever, leukocytosis and failure to advance diet, will recheck CT abd/pelvis Back to clear liquids Subjective: Increased abd pain this afternoon with nausea. No RLQ pain, just more diffuse and crampy. Objective: Vital Signs Temp Pulse Resp BP Pulse Ox 37.1 C 79 18 141/88 H 94 10/31/16 12:00 10/31/16 12:00 10/31/16 12:00 10/31/16 12:00 10/31/16 12:00 Laboratory Results 10/31/16 04:29 10/29/16 03:50 10/30/16 10/31/16 11/01/16 05:59 05:59 05:59 Intake Total 1100 1600 480 Balance 1100 1600 480 d/w Dr. Collier - was doing better this am, and thought she might go home today. This afternoon she is feeling much worse. - Physical Exam Constitutional: no apparent distress, appears nourished, not in pain Cardiovascular: regular rate and rhythym, no murmur, rub, or gallop Respiratory: no respiratory distress, no rales or rhonchi, clear to auscultation Gastrointestinal: normoactive bowel sounds, soft, non-tender abdomen, no palpable masses Skin: no rashes or abrasions, no fluctuance, no induration Neurologic: AAOx3, sensation intact bilaterally Psychiatric: interacting appropriately, not anxious, not encephalopathic, thought process linear ICD10 Worksheet Patient Problems: Problems Problem Status Onset Diverticulitis large intestine Acute Osteoarthritis of knee Chronic
[2016-10-31] MEDS ORDERED: IOPAMIDOL (ISOVUE-300) 100 ML BTL ONE (15:36)
--- NOTE | 2016-10-31 17:03 | SOAPPROG ---
SOAP Progress Note Assessment/Plan: Assessment/Plan: 61-year-old female with diverticulitis, improving No fevers overnight, but still 2/10 abdominal pain today. Reviewed CT scan with Dr Licona which shows persistent SBO and poss abscess versus bowel loop but unclear etiology as it may be 2/2 TOA or other MANAGER DAIRY source. Will order TVUS to further delineate. Will also make her NPO at [place] should she indeed have a pelvic anbscess which would require drainage. Discussed with Simone Burton. 10/30/16 11:03 10/30/16 11:05 10/31/16 16:59 Subjective: Feels better, tolerating diet Objective: Vital Signs Temp Pulse Resp BP Pulse Ox 36.9 C 81 20 132/88 H 94 10/31/16 16:00 10/31/16 16:00 10/31/16 16:00 10/31/16 16:00 10/31/16 12:00 Laboratory Results 10/31/16 04:29 10/29/16 03:50 10/30/16 10/31/16 11/01/16 05:59 05:59 05:59 Intake Total 1100 1600 480 Balance 1100 1600 480 ICD10 Worksheet Patient Problems: Problems Problem Status Onset Diverticulitis large intestine Acute Osteoarthritis of knee Chronic
[2016-10-31] MEDS: ZOLPIDEM TARTRATE 5 MG TAB PO PRN (21:45)
[2016-11-01] MEDS: PROMETHAZINE HCL 25 MG/ML INJ IVP PRN (01:08)
[2016-11-01] MEDS: ACETAMINOPHEN 325 MG TAB PO PRN ×2 (01:15→08:35)
[2016-11-01 05:20] LABS: ABSOLUTE NRBC COUNT 0.04 10^3/uL (0-0.01); ADD DIFF? YES; ADD MORPH? NO; ADD SCAN? NO; ATYPICAL LYMPHOCYTE FLAG 60 (0-99); FRAGMENT RBC FLAG 0 (0-99); HEMOGLOBIN 10.9 g/dL (12.6-16.3); LEFT SHIFT FLG 20 (0-99); LIPEMIA HEMOLYSIS FLAG 80 (0-99); MEAN CELL HEMOGLOBIN 31.5 pg (27.9-34.1); MEAN CELL HEMOGLOBIN CONCENTR. 32.1 g/dL (32.4-36.7); MEAN CELL VOLUME 98.3 fL (81.5-99.8); MEAN PLATELET VOLUME 8.6 fL (8.7-11.7); NRBC-AUTO% 0.3 % (0.0-0.2); PLATELET CLUMPS FLAG 0 (0-99); PLATELET COUNT 556 10^3/uL (150-400); RED BLOOD CELL COUNT 3.46 10^6/uL (4.18-5.33); RED CELL DISTRIBUTION WIDTH 13.1 % (11.5-15.2)
[2016-11-01 05:23] LABS: ANION GAP 14 mEq/L (8-16); CALCIUM 9.1 mg/dL (8.5-10.4); CARBON DIOXIDE 29 mEq/l (22-31); CHLORIDE 99 mEq/L (97-110); CREATININE 0.6 mg/dL (0.6-1.0); GLOMERULAR FILTRATION RATE > 60; GLUCOSE 98 mg/dL (70-100); POTASSIUM 3.6 mEq/L (3.5-5.2); SODIUM 142 mEq/L (134-144)
[2016-11-01 06:44] LABS: PLATELET ESTIMATE INCREASED (ADEQ); POLYCHROMASIA 1+
[2016-11-01] MEDS: ERTAPENEM 1 GM in NS 100 ML IV SCH (08:34)
--- NOTE | 2016-11-01 08:55 | HOSPPROG ---
Hospitalist Progress Note Assessment/Plan: #Severe sepsis: WBC not improving. U/s negative for tubo-ovarian abscess #Leukocytosis: not improved on IV abx. Surgery to take to OR. Repeat UA. #Diverticulitis: OR today. On IV Invanz #SBO: due to above. NPO #ARF: resolved #Diet: NPO. IVFs #DVT ppx: SCDs #Disp: warrants inpt admission with sepsis. Cont IV abx, surgery today Subjective: vomited this morning. Mild RLQ pain Objective: Vital Signs Temp Pulse Resp BP Pulse Ox 36.9 C 75 16 132/75 H 96 11/01/16 08:00 11/01/16 08:00 11/01/16 08:00 11/01/16 08:00 11/01/16 08:00 Laboratory Results 11/01/16 04:58 11/01/16 04:58 10/31/16 11/01/16 11/02/16 05:59 05:59 05:59 Intake Total 1600 1240 Balance 1600 1240 - Physical Exam Constitutional: obese, other (tired-appearing) Ears, Nose, Mouth, Throat: moist mucous membranes, hearing normal Cardiovascular: regular rate and rhythym, no murmur, rub, or gallop Respiratory: no respiratory distress, no rales or rhonchi Gastrointestinal: normoactive bowel sounds, distension (mild distension. Mild RLQ TTP, quiet BS), No guarding, No rebound Genitourinary: no bladder fullness Skin: warm Musculoskeletal: full muscle strength Neurologic: AAOx3, CN II-XII Intact ICD10 Worksheet Patient Problems: Problems Problem Status Onset Diverticulitis large intestine Acute Osteoarthritis of knee Chronic
--- NOTE | 2016-11-01 08:56 | SOAPPROG ---
SOAP Progress Note Assessment/Plan: Assessment: 61 yo female with probable sigmoid diverticulitis with significant inflammation of mesentery complaining of RLQ abdominal pain and nausea. Afebrile WBC count continues to be elevated TVUS-low suspicion for abscess CT- mesenteric inflammation OR today for ex lap NPO for surgery Continue pain control Continue abx Appreciate hospitalist S: Patient experiencing RLQ pain and heartburn symptoms. Risks and benefits of surgery discussed. Patient agrees with the surgical plan. O: Patient sitting up in chair, NAD Afebrile No increased WOB Objective: Vital Signs Temp Pulse Resp BP Pulse Ox 36.9 C 75 16 132/75 H 96 11/01/16 08:00 11/01/16 08:00 11/01/16 08:00 11/01/16 08:00 11/01/16 08:00 Laboratory Results 11/01/16 04:58 11/01/16 04:58 10/31/16 11/01/16 11/02/16 05:59 05:59 05:59 Intake Total 1600 1240 Balance 1600 1240 ICD10 Worksheet Patient Problems: Problems Problem Status Onset Diverticulitis large intestine Acute Osteoarthritis of knee Chronic
[2016-11-01] MEDS: ASPIRIN EC 81 MG TAB PO SCH (08:59)
[2016-11-01] MEDS: NS 1,000 ML IV SCH ×2 (08:59→18:18)
[2016-11-01] MEDS: PANTOPRAZOLE SODIUM 40 MG in NS 100 ML IV SCH (09:33)
[2016-11-01] MEDS: BIOTENE DRY MOUTH MOUTHWASH 237 ML BTL MM PRN (09:34)
[2016-11-01] MEDS: ONDANSETRON 4 MG/2 ML VIAL IVP PRN (10:27)
[2016-11-01 10:56] LABS: COLOR YELLOW; LEUKOCYTE ESTERASE,URINE NEGATIVE (NEGATIVE); NITRITE,URINE NEGATIVE (NEGATIVE)
[2016-11-01 11:04] LABS: MUCUS TRACE /lpf (NONE-1+)
[2016-11-01] MEDS ORDERED: LR 1,000 ML IV ONE (11:17)
[2016-11-01] MEDS ORDERED: MIDAZOLAM 2 MG/2 ML VIAL IVP ONE (12:09)
--- NOTE | 2016-11-01 12:10 | SOAPPROG ---
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 RLQ/ +BM AND FLATUS/ GETTING MORE HUNGRY / OVERALL IMPROVING SLOWLY MAY NEED FU CT 11/01/16 12:09 PERSISTENT DISCOMFORT IN THE RIGHT LOWER QUADRANT WITH LEUKOCYTOSIS AND LOW- GRADE FEVER/OVERALL NOT FEELING MUCH IMPROVED/RISKS AND OPTIONS FULLY DISCUSSED PLAN IS PROCEED WITH LAPAROSCOPY POSSIBLE PARTIAL COLECTOMY/PATIENT IS AWARE THAT THIS MAY MEAN A TEMPORARY COLOSTOMY AND SHE WISHES TO PROCEED Objective: Vital Signs Temp Pulse Resp BP Pulse Ox 37.1 C 86 16 144/85 H 92 11/01/16 11:37 11/01/16 11:37 11/01/16 11:37 11/01/16 11:37 11/01/16 11:37 Laboratory Results 11/01/16 04:58 11/01/16 04:58 10/31/16 11/01/16 11/02/16 05:59 05:59 05:59 Intake Total 1600 1240 200 Balance 1600 1240 200 ICD10 Worksheet Patient Problems: Problems Problem Status Onset Diverticulitis large intestine Acute Osteoarthritis of knee Chronic
--- NOTE | 2016-11-01 12:12 | PDANEPAE ---
HOMAR History of Present Illness For ex laparoscopy, poss laparotomy ANE Past Medical History - Cardiovascular History Hx Hypertension: Yes Hx Arrhythmias: No Hx Coronary Artery / Peripheral Vascular Disease: No Hx CHF / Valvular Disease: No Cardiovascular History Comment: NO CP - Pulmonary History Hx COPD: No Hx Asthma/Reactive Airway Disease: No Hx Recent Upper Respiratory Infection: No Hx Oxygen in Use at Home: No Hx Sleep Apnea: No Sleep Apnea Screening Result - Last Documented: Positive Pulmonary History Comment: NO SOB W STAIRS - Neurologic History Hx Cerebrovascular Accident: No Hx Seizures: No Hx Dementia: No Neurologic History Comment: HX MIGRAINES- NONE X 2 Y - Endocrine History Hx Diabetes: No - Renal History Hx Renal Disorders: No - Liver History Hx Hepatic Disorders: No - Neurological & Psychiatric Hx Hx Neurological and Psychiatric Disorders: Yes Neurological / Psychiatric History Comment: OCC MIGRAINE. CLAUSTROPHOBIC - Cancer History Hx Cancer: No - Congenital Disorder History Hx Congenital Disorders: No - GI History Hx Gastrointestinal Disorders: No Gastrointestinal History Comment: Persistent nausea, abdominal pain - Other Health History Other Health History: NONE - Chronic Pain History Chronic Pain: Yes (R KNEE, LOW BACK) - Surgical History Prior Surgeries: RT ACHILLES TENDON REPAIR. LT KNEE SCOPE X 2. LAP FROYLAN. OLENA CARPAL TUNNEL. X 2. REMVL CYST LT HAND. TUBAL LIGATION. R ACHILLES TENDON REP. L TKA 04-03-13. BACK SURG TLIF/ MICRODISC 05-18-13. RUDY GRAF Review of Systems Review of systems is: negative - Exercise capacity Exercise capacity: >=4 METS ANE Patient History - Allergies Allergies/Adverse Reactions: No Allergies Allergy (Verified 11/01/16 09:25) - Home Medications Home medications: home medication list seen and reviewed Home Medications: Acetaminophen [Tylenol 325mg (*)] 650 mg PO Q4-6PRN PRN 10/25/16 [Last Taken 04:00] Aspirin EC [Aspirin EC 81 mg (*)] 81 mg PO DAILY 10/25/16 [Last Taken 10/22/16] Herbals/Supplements -Info Only 1 ea PO DAILY 10/25/16 [Last Taken Unknown] Ibuprofen [Motrin (*)] 600 mg PO Q4-6PRN PRN 10/25/16 [Last Taken 10/25/16 10:00 ] Lisinopril [Zestril 20 mg (*)] 20 mg PO DAILY 10/25/16 [Last Taken 10/22/16] Meloxicam 15 mg PO DAILY 10/25/16 [Last Taken 10/22/16] [place]-3 Fatty Acids [Fish Oil 1000 mg (*)] 1,000 mg PO DAILY 10/25/16 [Last Taken Unknown] amLODIPine BESYLATE [Norvasc 2.5 mg (*)] 2.5 mg PO DAILY 10/25/16 [Last Taken ] - NPO status NPO Status: no food or drink >8 hours NPO Since - Liquids (Date): 11/01/16 NPO Since - Liquids (Time): 09:00 NPO Since - Solids (Date): 10/31/16 NPO Since - Solids (Time): 09:00 - Anes Hx Anes Hx: post operative nausea - Smoking Hx Smoking Status: Never smoked - Family Anes Hx Family Anes Hx: none Family Hx Anesthesia Complications: NONE ANE Labs/Vital Signs - Labs Result Diagrams: 11/01/16 04:58 11/01/16 04:58 - Vital Signs Blood Pressure: 144/85 Heart Rate: 86 Respiratory Rate: 16 O2 Sat (%): 92 Height: 165.1 cm Weight: 99.79 kg ANE Physical Exam - Airway Mallampati Score: Class 3 Mouth exam: normal dental/mouth exam - Pulmonary Pulmonary: no respiratory distress - Cardiovascular Cardiovascular: regular rate and rhythym - ASA Status ASA Status: II
[2016-11-01] MEDS ORDERED: BUPIVACAINE 0.5% 30 ML SDV ONE (12:27)
[2016-11-01] MEDS ORDERED: HEPARIN 1000 UNIT/1 ML MDV ONE (12:27)
[2016-11-01] MEDS ORDERED: ceFAZolin 1 GM/5 ML SYR ONE (12:28)
[2016-11-01] MEDS ORDERED: SUGAMMADEX SODIUM 200 MG/2 ML VIAL IVP ONE (12:35)
[2016-11-01] MEDS ORDERED: ONDANSETRON 4 MG/2 ML VIAL ONE (12:35)
[2016-11-01] MEDS ORDERED: LIDOCAINE 2% 100 MG/5 ML SYR ONE (12:35)
[2016-11-01] MEDS ORDERED: PROPOFOL 200 MG/20 ML VIAL ONE ×2 (12:35→13:13)
[2016-11-01] MEDS ORDERED: DEXAMETHASONE 4 MG/ML VIAL ONE (12:35)
[2016-11-01] MEDS ORDERED: ROCURONIUM 50 MG/5 ML VIAL ONE ×2 (12:35→13:31)
[2016-11-01] MEDS ORDERED: fentaNYL 100 MCG/2 ML INJ ONE ×3 (12:36→16:52)
[2016-11-01] MEDS ORDERED: HYDROmorphONE/DILAUDID 2 MG/ML INJ ONE (13:39)
[2016-11-01] MEDS ORDERED: ACETAMINOPHEN 500 MG TAB PO PRN ×2 (13:44→15:55)
[2016-11-01] MEDS ORDERED: ONDANSETRON 4 MG/2 ML VIAL IVP PRN ×2 (13:44→15:55)
[2016-11-01] MEDS ORDERED: NALOXONE HCL 0.4 MG/ML INJ IVP PRN ×3 (13:44→16:25)
[2016-11-01] MEDS ORDERED: HYDROCODONE/APAP 5/325 TAB PO PRN ×2 (13:44→15:55)
[2016-11-01] MEDS ORDERED: LABETALOL HCL 5 MG/ML 20 ML MDV IVP PRN (13:44)
[2016-11-01] MEDS ORDERED: OXYCODONE/APAP 5/325 TAB PO PRN ×2 (13:44→15:55)
[2016-11-01] MEDS ORDERED: MEPERIDINE 25 MG/ML SYR IVP PRN ×2 (13:44→15:55)
[2016-11-01] MEDS ORDERED: DEXAMETHASONE 4 MG/ML VIAL IVP PRN ×2 (13:44→15:55)
[2016-11-01] MEDS ORDERED: PROMETHAZINE HCL 25 MG/ML INJ IVP PRN ×2 (13:44→15:55)
--- NOTE | 2016-11-01 15:21 | POSTANESTH ---
Post Anesthetic Evaluation Cardiovascular Status: Similar to Pre-Op Cond Respiratory Status: Similar to Pre-op Cond. Level of Consciousness/Mental Status: Can Participate in Eval, Moderately Sleepy Pain Control: Adequate, Prn Tx Ordered Nausea/Vomiting Control: Adequate, Prn Tx Ordered Complications Possibly Related to Anesthesia: None Noted
[2016-11-01] MEDS ORDERED: LABETALOL HCL 50 MG/10 ML SYR IVP PRN (15:55)
[2016-11-01] MEDS ORDERED: fentaNYL 100 MCG/2 ML INJ IVP PRN (15:55)
[2016-11-01] MEDS ORDERED: HYDROmorphONE/DILAUDID 1 MG/ML INJ ONE ×2 (16:01→16:52)
[2016-11-01] MEDS: fentaNYL 100 MCG/2 ML INJ IVP PRN ×3 (16:06→17:30)
[2016-11-01] MEDS: HYDROmorphONE/DILAUDID 1 MG/ML INJ IVP PRN ×8 (16:07→18:10)
--- NOTE | 2016-11-01 16:34 | POSTOPPROG ---
Post Op Note Date of Operation: 11/01/16 Surgeon: Domo Anguiano Monitoring Specialist: Lydia Panda Anesthesiologist: Homer Hutton Anesthesia: GET(General Endotracheal) Pre-op Diagnosis: abdominal pain, inflammation, possible diverticulitis Post-op Diagnosis: perforated diverticulitis with abscess Procedure: ex-laparoscopy, lap c sigmoid colectomy, colostomy, drainage pelvic abscess Findings: gross purulence walled off by inflamed large and small bowel Inf/Abcess present in the surg proc area at time of surgery?: Yes Depth: Organ Space EBL: 50-100 Complications: none Drains: Pilo Leigh Specimen(s): sigmoid colon to pathology and culture to lab
[2016-11-01] MEDS: HYDROmorphONE/DILAUDID 6 MG/30 ML PCA IV PRN (18:17)
[2016-11-02] MEDS: KETOROLAC 15 MG/1 ML SDV IVP SCH ×3 (00:01→11:51)
[2016-11-02] MEDS: NS 1,000 ML IV SCH ×4 (00:04→17:48)
[2016-11-02] MEDS: HYDROmorphONE/DILAUDID 6 MG/30 ML PCA IV PRN ×4 (00:15→17:50)
[2016-11-02] MEDS ORDERED: NS 500 ML IV ONE (00:52)
--- NOTE | 2016-11-02 01:28 | SOAPPROG ---
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 RLQ/ +BM AND FLATUS/ GETTING MORE HUNGRY / OVERALL IMPROVING SLOWLY MAY NEED FU CT 11/01/16 12:09 PERSISTENT DISCOMFORT IN THE RIGHT LOWER QUADRANT WITH LEUKOCYTOSIS AND LOW- GRADE FEVER/OVERALL NOT FEELING MUCH IMPROVED/RISKS AND OPTIONS FULLY DISCUSSED PLAN IS PROCEED WITH LAPAROSCOPY POSSIBLE PARTIAL COLECTOMY/PATIENT IS AWARE THAT THIS MAY MEAN A TEMPORARY COLOSTOMY AND SHE WISHES TO PROCEED 11/02/16 01:27 POSTOP LOTS OF PAIN/WOUND OK/ OSTOMY OK/ LOW GRADE TEMP/ UO OK/ MODERATE ALEXEI OUTPUT AND MODERQTE NG OUT Objective: Vital Signs Temp Pulse Resp BP Pulse Ox 37.0 C 98 16 101/67 98 11/01/16 23:56 11/02/16 00:27 11/01/16 23:56 11/02/16 00:27 11/02/16 00:27 Microbiology 11/01/16 13:56 Gram Stain - Final Pelvis - Eswab 11/01/16 13:56 Mycobacterial Smear (VALERIE) - Final Pelvis - Eswab Mycobacterial Culture - Final Laboratory Results 11/01/16 04:58 11/01/16 04:58 10/31/16 11/01/16 11/02/16 05:59 05:59 05:59 Intake Total 1600 1240 1850 Output Total 2255 Balance 1600 1240 -405 ICD10 Worksheet Patient Problems: Problems Problem Status Onset Diverticulitis large intestine Acute Osteoarthritis of knee Chronic
--- NOTE | 2016-11-02 04:35 | GOP ---
[f rep st] OPERATIVE REPORT DATE OF OPERATION: 11/01/2016 SURGEON: Domo Anguiano MD JAWBONE BREAKER: KRISTY Wilson. ANESTHESIOLOGIST: Homer Hutton MD. PREOPERATIVE DIAGNOSIS: Diverticulitis and possible pelvic abscess and small- bowel obstruction POSTOPERATIVE DIAGNOSIS: Diverticulitis and possible pelvic abscess. And small bowel obstruction PROCEDURE PERFORMED: Laparoscopy, exploratory laparotomy with drainage of pelvic abscess, sigmoid colon resection with Irma's pouch and end-colostomy , splenic flexure mobilization. Lysis of adhesions for small bowel obstruction FINDINGS: Patient was found to have a perforated diverticulitis with a pelvic abscess causing a partial bowel obstruction. Appendix was seen and it was completely normal. There was no evidence of tubo-ovarian abscesses. ESTIMATED BLOOD LOSS: Less than 25 cc. DESCRIPTION OF PROCEDURE: The patient was taken to the operating room where she received satisfactory general endotracheal anesthesia by Dr. Hutton. She was placed in the supine position, prepped and draped in the usual sterile fashion. A periumbilical incision was made. A Veress needle inserted. Pneumoperitoneum was established. Trocar was introduced. Laparoscope introduced. Good visualization was obtained. Lower abdomen was difficult to see because of marked adhesions from previous pelvic surgery. There was a marked amount of inflammatory change down in the pelvis and the procedure was then converted over to a midline lower abdominal laparotomy. This was carried down through the linea alba. The abdomen was carefully entered with care to avoid injury to the bladder. The incision had to be eventually extended because of the lack of adequate exposure. Bowels were markedly dilated. The small bowel was freed up from the pelvis and appeared to be involved in the abscess cavity which was entered and drained and irrigated out. Cultures were sent. Small bowel was eventually completely freed from this area and elevated up. The sigmoid colon was quite inflamed and this was freed up from the lateral peritoneal attachments. The splenic flexure was mobilized as well. Proximal colon was then divided with a MICHAEL stapler. Mesentery of the distal sigmoid colon was divided with the Harmonic Scalpel down to just above the start of the rectum, where it was divided again with a MICHAEL stapler. The inflamed segment of sigmoid was removed and sent to Pathology. Wound was irrigated. Hemostasis was assured. There was no evidence of any colovesical fistula. A 15 round silicone drain was brought out through a separate stab incision in the right lower quadrant and placed in the abscess cavity. Small bowel omentum was then replaced in the pelvis. The proximal sigmoid colon had been mobilized adequately and was then brought up in the left lower quadrant through a circular incision in the abdominal wall which was created in a 2 fingerbreadth opening. The colon was brought up through this opening. It was secured to the peritoneum with 3-0 Vicryl sutures into the anterior rectus sheath with interrupted 3-0 Vicryl sutures. The midline abdominal wound was then closed with a running #1 PDS suture. A second 15 round silicone ALEXEI drain was placed in the subcutaneous tissue and brought out through a separate stab incision. Both drains were secured to skin with 3-0 nylon suture. The skin was then closed with skin vivien over this drain. After that was closed, the colostomy was then opened and matured and the colostomy opening was sutured back to the skin edges with interrupted 4-0 Vicryl suture, creating a good open end colostomy. This was covered with a colostomy appliance. The wound had been dressed as well. She tolerated the procedure quite well. She was taken to recovery room in satisfactory condition. There were no complications. /[id number]/MODL MTDD
[2016-11-02 06:27] LABS: HEMATOCRIT 34.1 % (38.0-47.0); LIPEMIA HEMOLYSIS FLAG 80 (0-99); MEAN CELL HEMOGLOBIN CONCENTR. 32.3 g/dL (32.4-36.7); MEAN CELL VOLUME 99.1 fL (81.5-99.8); PLATELET COUNT 621 10^3/uL (150-400); RED BLOOD CELL COUNT 3.44 10^6/uL (4.18-5.33); RED CELL DISTRIBUTION WIDTH 13.3 % (11.5-15.2)
[2016-11-02 06:38] LABS: ANION GAP 9 mEq/L (8-16); CALCIUM 8.2 mg/dL (8.5-10.4); CARBON DIOXIDE 26 mEq/l (22-31); CHLORIDE 104 mEq/L (97-110); CREATININE 1.5 mg/dL (0.6-1.0); GLOMERULAR FILTRATION RATE 35; GLUCOSE 97 mg/dL (70-100); POTASSIUM 4.6 mEq/L (3.5-5.2); SODIUM 139 mEq/L (134-144)
[2016-11-02] MEDS: ERTAPENEM 1 GM in NS 100 ML IV SCH (08:12)
[2016-11-02] MEDS: ONDANSETRON 4 MG/2 ML VIAL IVP PRN ×2 (08:18→22:13)
[2016-11-02] MEDS: BIOTENE DRY MOUTH MOUTHWASH 237 ML BTL MM PRN (08:20)
[2016-11-02] MEDS: PANTOPRAZOLE SODIUM 40 MG in NS 100 ML IV SCH (10:08)
--- NOTE | 2016-11-02 10:20 | HOSPPROG ---
Hospitalist Progress Note Assessment/Plan: #Severe sepsis: due to perf diverticulitis #Perforated diverticulitis with abscess: ex-lap, sigmoid colectomy, colostomy, drainage 11/01. Cont IV abx #OCTAVIO: check urine lytes. IVFs #Leukocytosis: not improved on IV abx. Surgery to take to OR. Repeat UA. #Diverticulitis: OR today. On IV Invanz #Normocytic anemia: H/H stable. May have drop post-operatively #Diet: NPO. IVFs #DVT ppx: SCDs #Disp: warrants inpt admission with sepsis. Cont IV abx, surgery today Subjective: dry mouth and throat. Abd pain 08/14 Objective: Vital Signs Temp Pulse Resp BP Pulse Ox 36.9 C 92 16 101/65 99 11/02/16 08:00 11/02/16 08:00 11/02/16 08:00 11/02/16 08:00 11/02/16 08:00 Microbiology 11/01/16 13:56 Gram Stain - Final Pelvis - Eswab 11/01/16 13:56 Mycobacterial Smear (VALERIE) - Final Pelvis - Eswab Mycobacterial Culture - Final Laboratory Results 11/02/16 05:49 11/02/16 05:49 11/01/16 11/02/16 11/03/16 05:59 05:59 05:59 Intake Total 1240 3499 Output Total 3530 Balance 1240 -31 - Time Spent With Patient Time Spent with Patient: greater than 35 minutes Time Spent with Patient: Greater than 35 minutes spent on this patients care, greater than 50% of time spent counseling, educating, and coordinating care regarding the above mentioned plan. - Physical Exam Constitutional: obese, uncomfortable Ears, Nose, Mouth, Throat: dry mucous membranes Cardiovascular: regular rate and rhythym, no murmur, rub, or gallop Respiratory: no respiratory distress, no rales or rhonchi Gastrointestinal: normoactive bowel sounds, distension, other (surgical incision dress C/D/I. [address] with serosang drainage. Ostomy with smal amoutn serosang drainage) Genitourinary: torres in urethra Skin: warm Musculoskeletal: full muscle strength Neurologic: AAOx3, CN II-XII Intact Psychiatric: interacting appropriately ICD10 Worksheet Patient Problems: Problems Problem Status Onset Diverticulitis large intestine Acute Osteoarthritis of knee Chronic
[2016-11-02] MEDS: ASPIRIN EC 81 MG TAB PO SCH (10:22)
[2016-11-02] MEDS: CEPACOL LOZENGE PO PRN ×2 (11:51→18:20)
--- NOTE | 2016-11-02 12:56 | WOCRNPDOC ---
WOCRRadha Advanced Assessment Note - Colostomy Assessment, Advanced Left Lower Abdomen Colostomy Stoma Colostomy Appliance Intact: Yes Colostomy Appliance Currently in Use: Two Piece Flat, 2 3/4 Stoma Color: Red Stoma Turgor: Moist Stoma Shape: Round Stoma Height: Protruding Slightly Colostomy Effluent: Serosangenous Colostomy Details: End, Irma's Pouch Colostomy Comment/Treatment Details: Day 1 education about colostomy given to patient. Patient very uncomfortable post operatively and fatigued. Did not have any questions currently. Wound care will round again later this week.
--- NOTE | 2016-11-02 13:42 | SOAPPROG ---
SOAP Progress Note Assessment/Plan: Assessment/Plan: 61 Y F with probable sigmoid diverticulitis with significant inflammation of mesentery. C/o RLQ pain. s/p ex-laparoscopy, ex-laparotomy, sigmoid colectomy, diverting colostomy, drainage of pelvic abscess, POD#1. Doing well post op day #1 aside from Cr elevation, 1.5. Will stop toradol. Appreciate IM input. Post op ileus. Continue NPO. Continue IV abx. Await cultures. Continue Keegan drains. Continue IS. Continue torres until tomorrow. Deep pelvic surgery, immobility, OCTAVIO. Continue NGT to suction. Xerostomia. Ok to have ice chips and sips of water while NG to suction for comfort. Continue routine post op care. S: OOB in chair. Eager to get better fast. No gas. O: alert, nad mmm ctab, no wob. rrr abd soft, appropriately tender, drains serosanguinous, ostomy pink, no output 11/02/16 13:45 Objective: Vital Signs Temp Pulse Resp BP Pulse Ox 36.9 C 85 16 105/67 95 11/02/16 08:00 11/02/16 12:00 11/02/16 12:00 11/02/16 12:00 11/02/16 12:00 Microbiology 11/01/16 13:56 Gram Stain - Final Pelvis - Eswab 11/01/16 13:56 Mycobacterial Smear (VALERIE) - Final Pelvis - Eswab Mycobacterial Culture - Final Laboratory Results 11/02/16 05:49 11/02/16 05:49 11/01/16 11/02/16 11/03/16 05:59 05:59 05:59 Intake Total 1240 3497 Output Total 7710 Balance 1240 -31 ICD10 Worksheet Patient Problems: Problems Problem Status Onset Diverticulitis large intestine Acute Osteoarthritis of knee Chronic
[2016-11-02 19:35] LABS: COLOR AMBER; LEUKOCYTE ESTERASE,URINE NEGATIVE (NEGATIVE); NITRITE,URINE NEGATIVE (NEGATIVE)
[2016-11-02 20:08] LABS: AMORPHOUS PRESENT /hpf (NONE-1+); MUCUS 1+ /lpf (NONE-1+); RBC,URINE 50-182 /hpf (0-3)
[2016-11-02] MEDS: ZOLPIDEM TARTRATE 5 MG TAB PO PRN (22:13)
[2016-11-02] MEDS: oxyCODONE IR 5 MG TAB PO PRN (22:13)
[2016-11-03] MEDS: NS 1,000 ML IV SCH ×3 (00:44→20:52)
[2016-11-03 05:31] LABS: HEMATOCRIT 27.5 % (38.0-47.0); HEMOGLOBIN 8.6 g/dL (12.6-16.3); LIPEMIA HEMOLYSIS FLAG 80 (0-99); MEAN CELL HEMOGLOBIN 32.1 pg (27.9-34.1); MEAN CELL HEMOGLOBIN CONCENTR. 31.3 g/dL (32.4-36.7); MEAN CELL VOLUME 102.6 fL (81.5-99.8); PLATELET COUNT 471 10^3/uL (150-400); RED BLOOD CELL COUNT 2.68 10^6/uL (4.18-5.33); RED CELL DISTRIBUTION WIDTH 13.2 % (11.5-15.2)
[2016-11-03 05:52] LABS: ANION GAP 9 mEq/L (8-16); CALCIUM 8.2 mg/dL (8.5-10.4); CARBON DIOXIDE 26 mEq/l (22-31); CHLORIDE 104 mEq/L (97-110); CREATININE 0.8 mg/dL (0.6-1.0); GLOMERULAR FILTRATION RATE > 60; GLUCOSE 75 mg/dL (70-100); POTASSIUM 3.8 mEq/L (3.5-5.2); SODIUM 139 mEq/L (134-144)
[2016-11-03] MEDS: HYDROmorphONE/DILAUDID 6 MG/30 ML PCA IV PRN (07:14)
--- NOTE | 2016-11-03 08:20 | HOSPPROG ---
Hospitalist Progress Note Assessment/Plan: #Perforated diverticulitis with abscess: ex-lap, sigmoid colectomy, colostomy, drainage 11/01. -culture grew E Coli/Strep anginosus. Change to CTX, Flagyl -trial clamped NG, sips/ice okay #Severe sepsis: resolved. Due to perforated divertic/pelvic abscess. #OCTAVIO: FeNa <1. Resolved with IVFs #Leukocytosis: improving after drainage. Cont IV abx #Acute on chronic back : normally takes Robaxin. Add IV Valium since NPO #Normocytic anemia: H/H stable. May have drop post-operatively #Diet: NPO. IVFs #DVT ppx: SCDs #Disp: warrants inpt admission with sepsis. Cont IV abx, surgery today Subjective: dry mouth still. Acute on chronic back pain. Normally takes robaxin Objective: Vital Signs Temp Pulse Resp BP Pulse Ox 37.0 C 75 16 102/58 L 98 11/03/16 06:02 11/03/16 06:02 11/03/16 06:02 11/03/16 06:02 11/03/16 06:02 Microbiology 11/01/16 13:56 Gram Stain - Final Pelvis - Eswab 11/01/16 13:56 Mycobacterial Smear (VALERIE) - Final Pelvis - Eswab Mycobacterial Culture - Final Laboratory Results 11/03/16 05:16 11/03/16 05:16 11/02/16 11/03/16 11/04/16 05:59 05:59 05:59 Intake Total 3499 2300 1899.6 Output Total 3530 1945 1200 Balance -31 355 699.6 - Time Spent With Patient Time Spent with Patient: greater than 35 minutes Time Spent with Patient: Greater than 35 minutes spent on this patients care, greater than 50% of time spent counseling, educating, and coordinating care regarding the above mentioned plan. - Physical Exam Constitutional: obese, uncomfortable Ears, Nose, Mouth, Throat: dry mucous membranes, other (NG in place) Cardiovascular: regular rate and rhythym, no murmur, rub, or gallop Respiratory: no respiratory distress, no rales or rhonchi Gastrointestinal: other (surgical incision stapled, healing well. [address] Ostomy with pink tissue), No normoactive bowel sounds Genitourinary: no bladder fullness Musculoskeletal: full muscle strength Neurologic: AAOx3, CN II-XII Intact Psychiatric: interacting appropriately ICD10 Worksheet Patient Problems: Problems Problem Status Onset Diverticulitis large intestine Acute Osteoarthritis of knee Chronic
[2016-11-03] MEDS: CEPACOL LOZENGE PO PRN ×2 (09:04→14:37)
[2016-11-03] MEDS: cefTRIAXone 2 GM in D5W 50 ML IV SCH (09:35)
[2016-11-03] MEDS: ONDANSETRON 4 MG/2 ML VIAL IVP PRN ×3 (10:40→22:00)
--- NOTE | 2016-11-03 10:48 | SOAPPROG ---
SOAP Progress Note Assessment/Plan: Assessment: 61 yo female with probable sigmoid diverticulitis with significant inflammation of mesentery complaining of RLQ abdominal pain and nausea. POD #2 s/p ex- laparoscopy, ex-laparotomy, sigmoid colectomy, diverting colostomy, drainage of pelvic abscess. Afebrile WBC count trending down Creat returned to baseline NGT clamp trial. Sips and candies for comfort okay Cont ALEXEI drain D/c torres Continue abx, awaiting cultures Appreciate hospitalist Routine post op care S: Complaining of back pain and dry mouth. denies abdominal pain F/C/N/V. O: Patient sitting up in chair, NAD Afebrile No increased WOB Abdomen soft, nontender ALEXEI drain serosang Ostomy pink +BS Objective: Vital Signs Temp Pulse Resp BP Pulse Ox 37.0 C 75 16 102/58 L 98 11/03/16 06:02 11/03/16 06:02 11/03/16 06:02 11/03/16 06:02 11/03/16 06:02 Microbiology 11/01/16 13:56 Gram Stain - Final Pelvis - Eswab 11/01/16 13:56 Mycobacterial Smear (VALERIE) - Final Pelvis - Eswab Mycobacterial Culture - Final Laboratory Results 11/03/16 05:16 11/03/16 05:16 11/02/16 11/03/16 11/04/16 05:59 05:59 05:59 Intake Total 3499 2300 1899.6 Output Total 3530 1945 1200 Balance -31 355 699.6 ICD10 Worksheet Patient Problems: Problems Problem Status Onset Diverticulitis large intestine Acute Osteoarthritis of knee Chronic
[2016-11-03] MEDS: ASPIRIN EC 81 MG TAB PO SCH (11:48)
[2016-11-03] MEDS: PANTOPRAZOLE SODIUM 40 MG in NS 100 ML IV SCH (12:30)
[2016-11-03] MEDS: oxyCODONE IR 5 MG TAB PO PRN (22:05)
[2016-11-03] MEDS: ZOLPIDEM TARTRATE 5 MG TAB PO PRN (22:06)
[2016-11-04] MEDS: HYDROmorphONE/DILAUDID 6 MG/30 ML PCA IV PRN ×2 (01:05→14:21)
[2016-11-04 05:14] LABS: HEMOGLOBIN 8.8 g/dL (12.6-16.3); LIPEMIA HEMOLYSIS FLAG 80 (0-99); MEAN CELL HEMOGLOBIN 31.1 pg (27.9-34.1); MEAN CELL HEMOGLOBIN CONCENTR. 30.3 g/dL (32.4-36.7); MEAN CELL VOLUME 102.5 fL (81.5-99.8); PLATELET COUNT 590 10^3/uL (150-400); RED BLOOD CELL COUNT 2.83 10^6/uL (4.18-5.33)
[2016-11-04 05:28] LABS: ANION GAP 10 mEq/L (8-16); CALCIUM 8.4 mg/dL (8.5-10.4); CARBON DIOXIDE 26 mEq/l (22-31); CHLORIDE 103 mEq/L (97-110); CREATININE 0.6 mg/dL (0.6-1.0); GLOMERULAR FILTRATION RATE > 60; GLUCOSE 70 mg/dL (70-100); POTASSIUM 4.1 mEq/L (3.5-5.2); SODIUM 139 mEq/L (134-144)
--- NOTE | 2016-11-04 08:53 | HOSPPROG ---
Hospitalist Progress Note Assessment/Plan: #Perforated diverticulitis with abscess: ex-lap, sigmoid colectomy, colostomy, drainage 11/01. -culture grew E Coli/Strep anginosus. CTX/Flagyl. Will need IV abx; appreciate ID consultation #Severe sepsis: resolved. Due to perforated divertic/pelvic abscess. #Mild encephalopathy: due to Ambien, will DC #Abdominal pain: improved; using less opioids #OCTAVIO: FeNa <1. Resolved with IVFs #Leukocytosis: improving after drainage. Cont IV abx #Acute on chronic back : normally takes Robaxin. Add IV Valium since NPO #Normocytic anemia: H/H stable. May have drop post-operatively #Diet: NPO. IVFs #DVT ppx: SCDs #Disp: warrants inpt admission with sepsis. Cont IV abx, surgery today Subjective: "didn't feel right in head" this morning Objective: Vital Signs Temp Pulse Resp BP Pulse Ox 36.9 C 68 16 130/107 H 96 11/04/16 04:00 11/04/16 06:00 11/04/16 04:00 11/04/16 06:00 11/04/16 06:00 Microbiology 11/01/16 13:56 Gram Stain - Final Pelvis - Eswab Laboratory Results 11/04/16 04:21 11/04/16 04:21 11/03/16 11/04/16 11/05/16 05:59 05:59 05:59 Intake Total 2300 4898.6 Output Total 1945 4025 Balance 355 873.6 - Physical Exam Constitutional: obese, uncomfortable Eyes: PERRL Ears, Nose, Mouth, Throat: dry mucous membranes Cardiovascular: regular rate and rhythym, no murmur, rub, or gallop Respiratory: no respiratory distress, no rales or rhonchi Gastrointestinal: normoactive bowel sounds, other (surgical incision healing. ) Genitourinary: no bladder fullness Skin: warm Musculoskeletal: full muscle strength Neurologic: AAOx3, CN II-XII Intact, No weakness, No numbness, No facial droop Psychiatric: interacting appropriately Lymph, Heme, Immunologic: no cervical LAD ICD10 Worksheet Patient Problems: Problems Problem Status Onset Diverticulitis large intestine Acute Osteoarthritis of knee Chronic
[2016-11-04] MEDS: cefTRIAXone 2 GM in D5W 50 ML IV SCH (09:12)
[2016-11-04] MEDS: ASPIRIN EC 81 MG TAB PO SCH (09:12)
[2016-11-04] MEDS: NS 1,000 ML IV SCH (09:17)
--- NOTE | 2016-11-04 09:58 | SOAPPROG ---
SOAP Progress Note Assessment/Plan: Assessment: 61 yo female with probable sigmoid diverticulitis with significant inflammation of mesentery complaining of RLQ abdominal pain and nausea. POD #3 s/p ex- laparoscopy, ex-laparotomy, sigmoid colectomy, diverting colostomy, drainage of pelvic abscess. Abd XR today NGT to suction, large output after clamp trial yesterday. Sips and candies for comfort okay Cont ALEXEI drain Continue abx, awaiting cultures Appreciate hospitalist Routine post op care S: Complaining of dry mouth. denies abdominal pain F/C/N/V. O: Patient sitting up in chair, NAD Afebrile No increased WOB ALEXEI drain serosang Abdomen softening, nontender Ostomy pink +BS 11/04/16 16:46 Objective: Vital Signs Temp Pulse Resp BP Pulse Ox 36.9 C 68 16 130/107 H 96 11/04/16 04:00 11/04/16 06:00 11/04/16 04:00 11/04/16 09:12 11/04/16 06:00 Microbiology 11/01/16 13:56 Gram Stain - Final Pelvis - Eswab Laboratory Results 11/04/16 04:21 11/04/16 04:21 11/03/16 11/04/16 11/05/16 05:59 05:59 05:59 Intake Total 2300 4898.6 Output Total 1945 4025 Balance 355 873.6 ICD10 Worksheet Patient Problems: Problems Problem Status Onset Diverticulitis large intestine Acute Osteoarthritis of knee Chronic
[2016-11-04] MEDS: PANTOPRAZOLE SODIUM 40 MG in NS 100 ML IV SCH (11:09)
--- NOTE | 2016-11-04 14:30 | ASMTCMCOM ---
CM Note CM Note Notes: Pt will need IV ABX at [place]. ID consult pending. Faxed referral to [facility] to run benefits. Pt will also need HC RN for IV infusion and colostomy care. [facility] alerted. Date Signed: 11/04/2016 02:29 PM Electronically Signed By:Edita Cotto
--- NOTE | 2016-11-04 19:52 | GCON ---
[f rep st] CONSULTATION INPATIENT INFECTIOUS DISEASE CONSULTATION REFERRING PHYSICIAN: Sophie Perez MD REASON FOR REFERRAL: Diverticulitis with abscess. HISTORY OF PRESENT ILLNESS: The patient is a 61-year-old female who presented to [facility] on 10/25/2016, complaining of nausea, vomiting and diarrhea for 3 days. The patient also rep orted fevers, chills and sweats. She underwent an abdominopelvic CT, which showed acute sigmoid div erticulitis with inflammatory changes throughout the mesentery. This resulted in a small bowel obst ruction proximal. The patient underwent surgery with Dr. Domo Anguiano on 11/01/2016, with drainage of a pelvic abscess and sigmoid colon resection. She also had a colostomy placed. Cultures from t hat procedure revealed E coli which was pansensitive, Streptococcus anginosus and Bacteroides. The patient has been placed on ceftriaxone and Flagyl. She is comfortable currently in her hospital [facility]. Denies any new complaint. She is afebrile. PAST MEDICAL HISTORY: 1. Hypertension. 2. Lumbar back pain. PAST SURGICAL HISTORY: 1. Status post total knee replacement. 2. Status post section. 3. Status post back surgery. 4. Status post Achilles tendon repair. 5. Status post cholecystectomy. 6. Status post carpal tunnel release. ANTIBIOTICS: 1. Ceftriaxone. 2. Metronidazole. ALLERGIES: Patient has no known medical allergies. SOCIAL HISTORY: [place]. She denies any tobacco, alcohol or drug use. She h as good support. FAMILY HISTORY: Noncontributory. REVIEW OF SYSTEMS: Other than that detailed above in history of present illness, comprehensive 10-s ystem review is negative. PHYSICAL EXAMINATION: VITAL SIGNS: Temperature maximum is 37.4, temperature current is 36.9, heart rate is 79, respiratory rate is 18, blood pressure is 122/67. GENERAL: The patient is a well-form ed, well-nourished, older female in no acute distress. She is not toxic in appearance. She is aler t and oriented x3. She has a pleasant demeanor. HEENT: Normocephalic, atraumatic. No scleral ict erus. No oral lesion. No drainage from the nares. Eyes: Lids and conjunctivae within normal limi ts. Pupils are equal and round bilaterally. NECK: Supple. No meningismus. LUNGS: Clear to ausc ultation bilaterally with good effort. HEART: Regular rate and rhythm. No murmur, rub, or gallop noted. ABDOMEN: Soft. Mildly tender without rebound. The patient has ostomy in place. No mass. SKIN: Warm and dry to the touch. No rash or lesion. MUSCULOSKELETAL: No muscle belly tenderness is noted. No joint line effusion or arthritis seen. NEURO: Cranial nerves 2-12 seem to be intact . Peripheral sensation seems intact in extremities. LABORATORY DATA: The patient has a CBC dated 11/04/2016, with white blood cell count of 13.9, hemog lobin of 8.8, hematocrit of 29.0 and a platelet count of 590. Serum chemistries on 11/04/2016, are all within normal limits. Creatinine 0.6. MICROBIOLOGIC DATA: Patient has operative cultures dated 11/01/2016, shows polymicrobial pelvic swa b including pansensitive E coli, strep anginosus and Bacteroides fragilis. Blood cultures dated , are no growth to date. ASSESSMENT: Sigmoid diverticulitis with abscess, status post sigmoid colon resection with abscess d rainage and colostomy placement. The patient has a constellation of bacteria in culture which are m ost amenable to IV beta-lactam and metronidazole, whether oral or IV. There is not a very good opti on of switching the fluoroquinolones due to the Strep anginosus culture. We will continue the IV ce ftriaxone and at the appropriate time, arrange for her to have home IV antibiotic therapy. PLAN: 1. Continue ceftriaxone and Flagyl. 2. Follow clinical course. 3. Arrange for home IV or senior living facility IV completion of treatment course at the appropr iate time. /[id number]/MODL
[2016-11-04] MEDS: ONDANSETRON DISINTEGRATING 4 MG TAB PO PRN (22:01)
[2016-11-05] MEDS: diphenhydrAMINE 25 MG CAP PO PRN (00:44)
[2016-11-05] MEDS: HYDROmorphONE/DILAUDID 6 MG/30 ML PCA IV PRN ×2 (01:26→20:05)
[2016-11-05 04:56] LABS: HEMATOCRIT 28.5 % (38.0-47.0); HEMOGLOBIN 8.6 g/dL (12.6-16.3); LIPEMIA HEMOLYSIS FLAG 80 (0-99); MEAN CELL HEMOGLOBIN 30.7 pg (27.9-34.1); MEAN CELL HEMOGLOBIN CONCENTR. 30.2 g/dL (32.4-36.7); MEAN CELL VOLUME 101.8 fL (81.5-99.8); PLATELET COUNT 554 10^3/uL (150-400); RED CELL DISTRIBUTION WIDTH 12.7 % (11.5-15.2)
[2016-11-05 05:06] LABS: ALANINE AMINOTRANSFERASE 49 IU/L (9-52); ALBUMIN 2.5 g/dL (3.5-5.0); ALKALINE PHOSPHATASE 140 IU/L (38-126); ANION GAP 10 mEq/L (8-16); ASPARTATE AMINOTRANSFERASE 34 IU/L (14-46); BILIRUBIN,TOTAL 0.5 mg/dL (0.1-1.4); CALCIUM 8.4 mg/dL (8.5-10.4); CARBON DIOXIDE 27 mEq/l (22-31); CHLORIDE 102 mEq/L (97-110); CREATININE 0.6 mg/dL (0.6-1.0); GLOMERULAR FILTRATION RATE > 60; GLUCOSE 66 mg/dL (70-100); POTASSIUM 3.4 mEq/L (3.5-5.2); SODIUM 139 mEq/L (134-144); TOTAL PROTEIN 5.3 g/dL (6.3-8.2)
[2016-11-05] MEDS: ONDANSETRON DISINTEGRATING 4 MG TAB PO PRN (05:31)
[2016-11-05] MEDS ORDERED: BUPIVACAINE 0.5% 30 ML SDV ONE (07:55)
[2016-11-05] MEDS ORDERED: LIDOCAINE 1% 300 MG/30 ML SDV ONE (07:55)
[2016-11-05] MEDS: ASPIRIN EC 81 MG TAB PO SCH (08:34)
[2016-11-05] MEDS: CEPACOL LOZENGE PO PRN ×4 (08:39→21:55)
[2016-11-05] MEDS: PANTOPRAZOLE SODIUM 40 MG in NS 100 ML IV SCH (08:40)
[2016-11-05] MEDS ORDERED: ALTEPLASE 2 MG VIAL IVP PRN (10:13)
[2016-11-05] MEDS ORDERED: HYDROmorphONE/DILAUDID 1 MG/ML INJ IVP PRN (10:19)
--- NOTE | 2016-11-05 10:19 | HOSPPROG ---
Hospitalist Progress Note Assessment/Plan: #Perforated diverticulitis with abscess: ex-lap, sigmoid colectomy, colostomy, drainage 11/01. -culture grew E Coli/Strep anginosus, Bacteroides. CTX/Flagyl. Will need IV abx x 2 weeks post-drainage. Appreciate ID consultation #Severe sepsis: resolved. Due to perforated divertic/pelvic abscess. #Mild encephalopathy: due to Ambien, will DC. Decrease dose dilaudid per her request #Abdominal pain: improved #OCTAVIO: FeNa <1. Resolved with IVFs #Leukocytosis: improving after drainage. Cont IV abx #Acute on chronic back : normally takes Robaxin. Add IV Valium since NPO #Normocytic anemia: H/H stable. May have drop post-operatively #Diet: NPO. IVFs #DVT ppx: SCDs #Disp: warrants inpt admission with sepsis. Cont IV abx, surgery today Subjective: "seeing things" Objective: Vital Signs Temp Pulse Resp BP Pulse Ox 37.1 C 79 19 124/73 H 97 11/05/16 08:00 11/05/16 08:00 11/05/16 08:00 11/05/16 08:00 11/05/16 08:00 Microbiology 11/01/16 13:56 Gram Stain - Final Pelvis - Eswab 11/01/16 13:56 Mycobacterial Smear (VALERIE) - Final Pelvis - Eswab Mycobacterial Culture - Final Laboratory Results 11/05/16 04:24 11/05/16 04:24 11/04/16 11/05/16 11/06/16 05:59 05:59 05:59 Intake Total 4898.6 2636 Output Total 4026 3881 225 Balance 873.6 083 -225 - Physical Exam Constitutional: uncomfortable Eyes: PERRL Ears, Nose, Mouth, Throat: moist mucous membranes Cardiovascular: regular rate and rhythym, no murmur, rub, or gallop Respiratory: no respiratory distress Gastrointestinal: normoactive bowel sounds, soft, non-tender abdomen, other ( surigcal incision healing, no purulence) Genitourinary: no bladder fullness Skin: warm Musculoskeletal: full muscle strength Neurologic: AAOx3, CN II-XII Intact Psychiatric: flat affect ICD10 Worksheet Patient Problems: Problems Problem Status Onset Diverticulitis large intestine Acute Osteoarthritis of knee Chronic
--- NOTE | 2016-11-05 10:21 | PCMIDPN ---
Assessment/Plan: 1. Polymicrobial diverticular abscess status post exploratory laparotomy with sigmoid colectomy, washout of pelvic abscess, and lysis of adhesions for small- bowel obstruction postop day 4: Continues to have a fair amount of abdominal discomfort , but ongoing ileus may be playing a role. Continue ceftriaxone and metronidazole as is; will insert PICC today. Reviewed this with patient, and she agrees. No other new recommendations. Subjective: Continues to have a fair amount of abdominal distention and discomfort. Also complaining of a dry throat. Overall very uncomfortable. Tells me that the bed is exacerbating her underlying low back pain. Not really passing gas. Objective: ceftriaxone 2 g IV daily day 2 Metronidazole 500 mg IV q.8 hours day 2 (Status post ertapenem from 10/25-11/03) T-max 37.2degrees Vital Signs Temp Pulse Resp BP Pulse Ox 37.1 C 79 19 124/73 H 97 11/05/16 08:00 11/05/16 08:00 11/05/16 08:00 11/05/16 08:00 11/05/16 08:00 Microbiology 11/01/16 13:56 Gram Stain - Final Pelvis - Eswab 11/01/16 13:56 Mycobacterial Smear (VALERIE) - Final Pelvis - Eswab Mycobacterial Culture - Final Laboratory Results 11/05/16 04:24 11/05/16 04:24 11/04/16 11/05/16 11/06/16 05:59 05:59 05:59 Intake Total 4898.6 2636 Output Total 4025 1985 225 Balance 873.6 651 -225 pelvic abscess cultures with E coli, strep anginosus, bacterioides, Enterobacter - Physical Exam General Appearance: obese, other ( Looks mildly uncomfortable, but not toxic.) EENT: No scleral icterus, No thrush Respiratory: lungs clear Cardiac/Chest: systolic murmur ( Very faint) Abdomen: distended, other ( minimal bowel sounds. Abdominal incision with appropriate tammy-incisional erythema postoperatively. [address] that are empty. Ostomy pink; bag is empty.) Skin: No rash ICD10 Worksheet Patient Problems: Problems Problem Status Onset Diverticulitis large intestine Acute Osteoarthritis of knee Chronic
[2016-11-05] MEDS: cefTRIAXone 2 GM in D5W 50 ML IV SCH (10:28)
--- NOTE | 2016-11-05 10:30 | SOAPPROG ---
SOAP Progress Note Assessment/Plan: Assessment: 61 yo female with probable sigmoid diverticulitis with significant inflammation of mesentery complaining of RLQ abdominal pain and nausea. POD #4 s/p ex- laparoscopy, ex-laparotomy, sigmoid colectomy, diverting colostomy, drainage of pelvic abscess. NGT clamp trial again today. 300cc output overnight. Sips and candies for comfort okay Cont ALEXEI drains Cont ostomy wound care Continue abx, awaiting cultures Appreciate hospitalist Routine post op care S: Complaining of dry mouth. denies abdominal pain F/C/N/V. Seen today during ostomy wound check and bag change by wound care team. O: Patient in bed, NAD Afebrile No increased WOB ALEXEI drain minimal serosang drainage Abdomen softening, nontender Ostomy site red +BS Objective: Vital Signs Temp Pulse Resp BP Pulse Ox 37.1 C 79 19 124/73 H 97 11/05/16 08:00 11/05/16 08:00 11/05/16 08:00 11/05/16 08:00 11/05/16 08:00 Microbiology 11/01/16 13:56 Gram Stain - Final Pelvis - Eswab 11/01/16 13:56 Mycobacterial Smear (VALERIE) - Final Pelvis - Eswab Mycobacterial Culture - Final Laboratory Results 11/05/16 04:24 11/05/16 04:24 11/04/16 11/05/16 11/06/16 05:59 05:59 05:59 Intake Total 4898.6 2636 Output Total 4025 1985 225 Balance 873.6 651 225 ICD10 Worksheet Patient Problems: Problems Problem Status Onset Diverticulitis large intestine Acute Osteoarthritis of knee Chronic
[2016-11-05] MEDS: NS 1,000 ML IV SCH ×2 (12:12→21:55)
--- NOTE | 2016-11-05 13:41 | WOCRNPDOC ---
WOCRN Advanced Assessment Note - Colostomy Assessment, Advanced Left Lower Abdomen Colostomy Stoma Colostomy Appliance Intact: No (leaking at 6 oclock) Colostomy Appliance Currently in Use: Two Piece Flat, 2 3/4, Moldable Stoma Color: Red Stoma Turgor: Moist Stoma Shape: Oval Stoma Height: Protruding Slightly Mucocutaneus Junction: Intact Colostomy Effluent: Serosangenous Colostomy Size - Head-to-Toe Length X Width X Depth (cm): approx 51 mm Colostomy Details: End Peristomal Skin: Intact Colostomy Comment/Treatment Details: Pouch change done by wound RN today with patient observing. Patient wanted a mirror for next pouch change and would like hands on practice. Wound care took Day 2 colostomy teaching. [employer] will be patient's wound care supplier. After discussing pros and cons of 1 vs 2 piece systems patient would like to try cut to fit one piece appliances for now. Will sign patient up for [employer] new starter program and will fill out [place] form for starter supplies (one piece cut to fit coloplast + accessories). All patient questions answered about ostomy care including frequency of change, showering, emptying etc. Will round again early next week. 2 inch ring was added to moldable appliance to increase the wear time as patient has had leaking every 2 days.
[2016-11-05] MEDS: DIAZEPAM 10 MG/2 ML SYR IVP PRN (23:13)
[2016-11-06] MEDS: ONDANSETRON 4 MG/2 ML VIAL IVP PRN ×2 (06:18→21:22)
[2016-11-06 06:25] LABS: HEMATOCRIT 26.9 % (38.0-47.0); HEMOGLOBIN 8.6 g/dL (12.6-16.3); LIPEMIA HEMOLYSIS FLAG 80 (0-99); MEAN CELL HEMOGLOBIN 31.5 pg (27.9-34.1); MEAN CELL VOLUME 98.5 fL (81.5-99.8); PLATELET COUNT 588 10^3/uL (150-400); RED BLOOD CELL COUNT 2.73 10^6/uL (4.18-5.33); RED CELL DISTRIBUTION WIDTH 12.8 % (11.5-15.2)
[2016-11-06 06:41] LABS: ANION GAP 14 mEq/L (8-16); CALCIUM 8.2 mg/dL (8.5-10.4); CARBON DIOXIDE 23 mEq/l (22-31); CHLORIDE 107 mEq/L (97-110); CREATININE 0.5 mg/dL (0.6-1.0); GLOMERULAR FILTRATION RATE > 60; GLUCOSE 66 mg/dL (70-100); POTASSIUM 3.4 mEq/L (3.5-5.2); SODIUM 144 mEq/L (134-144)
[2016-11-06] MEDS: NS 1,000 ML IV SCH ×2 (08:23→21:11)
[2016-11-06] MEDS: PANTOPRAZOLE SODIUM 40 MG in NS 100 ML IV SCH (08:25)
[2016-11-06] MEDS: ASPIRIN EC 81 MG TAB PO SCH (08:31)
[2016-11-06] MEDS: cefTRIAXone 2 GM in D5W 50 ML IV SCH (09:00)
[2016-11-06] MEDS: CEPACOL LOZENGE PO PRN ×2 (09:06→20:12)
[2016-11-06] MEDS ORDERED: D10W 1,000 ML IV PRN (09:18)
--- NOTE | 2016-11-06 09:18 | SOAPPROG ---
SOAP Progress Note Assessment/Plan: Assessment/Plan: 61 Y F with probable sigmoid diverticulitis with significant inflammation of mesentery. C/o RLQ pain. s/p ex-laparoscopy, ex-laparotomy, sigmoid colectomy, diverting colostomy, drainage of pelvic abscess. Seen and examined with Dr. Collier. Ileus. Will start TPN. Has PICC. Continue NGT. Probably no clamp trial today since she has failed twice. Await stool to appliance. Gas and good bowel sounds are reassuring. Afebrile. WBCs now down to normal limits. Appreciate ID and medicine input. S: Dry mouth and sore throat. Using lozenges and candies, some ice chips. +gas via stoma O: alert, nad mmm ctab, no wob. rrr abd soft, +BS, inc cdi, drains serosanguinous, ostomy pink, no output 11/06/16 09:15 Objective: Vital Signs Temp Pulse Resp BP Pulse Ox 36.6 C 70 17 137/81 H 98 11/06/16 08:00 11/06/16 08:00 11/06/16 08:00 11/06/16 08:33 11/06/16 08:00 Microbiology 11/01/16 13:56 Gram Stain - Final Pelvis - Eswab Laboratory Results 11/06/16 05:45 11/06/16 05:45 11/05/16 11/06/16 11/07/16 05:59 05:59 05:59 Intake Total 9184 2750 Output Total 8602 3674 Balance 651 -103 ICD10 Worksheet Patient Problems: Problems Problem Status Onset Diverticulitis large intestine Acute Osteoarthritis of knee Chronic
[2016-11-06] MEDS ORDERED: LIDOCAINE 2% VISCOUS 15 ML UDCUP PO PRN (09:25)
--- NOTE | 2016-11-06 09:35 | ASMTCMCOM ---
CM Note CM Note Notes: Jocelyn from [facility] met with pt yesterdayand they will provide IV ABX at DC. Faxed PICC line report and ID notes to [facility]. [facility] will provide RN for IV infusion and colostomy care. C/M to follow. Date Signed: 11/06/2016 09:34 AM Electronically Signed By:Edita Cotto
[2016-11-06] MEDS: POTASSIUM Cl (KCl) 100 ML IV SCH ×4 (09:51→13:51)
--- NOTE | 2016-11-06 12:31 | HOSPPROG ---
Hospitalist Progress Note Assessment/Plan: # Acute Perforated diverticulitis with abscess: ex-lap, sigmoid colectomy, colostomy, drainage POD# 5 Wound culture- E Coli/Strep anginosus, Bacteroides - remains NPO with NGT- serosanguineous drainage from ALEXEI- no stool from ostomy Abd xray (personally reviewed and interpreted) no bowel obstruction - continue ceftriaxone, Flagyl x 2 weeks post-drainage. - starting TPN - exchange PICC for double lumen - cont NPO/NGT # acute throat pain- posterior oropharynx clear had no lymphadenopathy on exam suspect maybe irritation related to NG tube - trial viscous lidocaine - continue Cepacol lozenges # Severe sepsis: resolved. Due to perforated divertic/pelvic abscess. #Mild encephalopathy- due to Ambien-DC'd- resolved #Abdominal pain-improved #OCTAVIO: FeNa <1. Resolved with IVFs #Leukocytosis- resolved with above tx 19->7 - oxygen saturations 100% on 2 L - continue current antibiotics #Acute on chronic back-normally takes Robaxin. Add IV Valium since NPO #Normocytic anemia: H/H stable. May have drop post-operatively #Diet: NPO. IVFs- adding TPN today #DVT ppx: SCDs- will discuss Lovenox with surgery #Dispo- greater than 2 midnights as patient requires Cont IV abx and intravenous nutritional support I have discussed the case with the RN- we will exchange for a 2 lumen PICC today allowing initiation of TPN Subjective: throat hurst worse than abdomen Objective: Vital Signs Temp Pulse Resp BP Pulse Ox 36.6 C 69 17 115/65 100 11/06/16 08:00 11/06/16 12:00 11/06/16 12:00 11/06/16 12:00 11/06/16 12:00 Microbiology 11/01/16 13:56 Gram Stain - Final Pelvis - Eswab Laboratory Results 11/06/16 05:45 11/06/16 05:45 11/05/16 11/06/16 11/07/16 05:59 05:59 05:59 Intake Total 6066 2950 Output Total 4835 3053 Balance 651 -103 - Physical Exam Constitutional: obese Eyes: anicteric sclera Ears, Nose, Mouth, Throat: dry mucous membranes, other (NGT) Cardiovascular: regular rate and rhythym Respiratory: no respiratory distress, no rales or rhonchi Gastrointestinal: normoactive bowel sounds Genitourinary: no bladder fullness Skin: warm, normal color Musculoskeletal: No asymmetric calves Neurologic: AAOx3 Psychiatric: interacting appropriately, not anxious Lymph, Heme, Immunologic: no cervical LAD ICD10 Worksheet Patient Problems: Problems Problem Status Onset Diverticulitis large intestine Acute Osteoarthritis of knee Chronic
[2016-11-06 12:51] LABS: % IMMATURE GRANULYOCYTES 1.7 % (0.0-1.1); ABSOLUTE IMMATURE GRANULOCYTES 0.13 10^3/uL (0.00-0.10); ABSOLUTE NRBC COUNT 0.02 10^3/uL (0-0.01); ADD DIFF? NO; ADD MORPH? NO; ADD SCAN? NO; ATYPICAL LYMPHOCYTE FLAG 60 (0-99); FRAGMENT RBC FLAG 0 (0-99); HEMATOCRIT 26.6 % (38.0-47.0); HEMOGLOBIN 8.3 g/dL (12.6-16.3); LEFT SHIFT FLG 10 (0-99); LIPEMIA HEMOLYSIS FLAG 80 (0-99); MEAN CELL HEMOGLOBIN 31.1 pg (27.9-34.1); MEAN CELL HEMOGLOBIN CONCENTR. 31.2 g/dL (32.4-36.7); MEAN CELL VOLUME 99.6 fL (81.5-99.8); MEAN PLATELET VOLUME 8.6 fL (8.7-11.7); NRBC-AUTO% 0.3 % (0.0-0.2); PLATELET CLUMPS FLAG 0 (0-99); PLATELET COUNT 561 10^3/uL (150-400); RED BLOOD CELL COUNT 2.67 10^6/uL (4.18-5.33); RED CELL DISTRIBUTION WIDTH 12.8 % (11.5-15.2)
[2016-11-06 13:10] LABS: ALANINE AMINOTRANSFERASE 41 IU/L (9-52); ALBUMIN 2.5 g/dL (3.5-5.0); ALKALINE PHOSPHATASE 112 IU/L (38-126); ANION GAP 12 mEq/L (8-16); ASPARTATE AMINOTRANSFERASE 29 IU/L (14-46); BILIRUBIN,TOTAL 0.4 mg/dL (0.1-1.4); CALCIUM 8.2 mg/dL (8.5-10.4); CARBON DIOXIDE 23 mEq/l (22-31); CHLORIDE 106 mEq/L (97-110); CREATININE 0.5 mg/dL (0.6-1.0); GLOMERULAR FILTRATION RATE > 60; GLUCOSE 63 mg/dL (70-100); MAGNESIUM 1.8 mg/dL (1.6-2.3); POTASSIUM 3.6 mEq/L (3.5-5.2); SODIUM 141 mEq/L (134-144); TOTAL PROTEIN 4.9 g/dL (6.3-8.2); TRIGLYCERIDE 98 mg/dL (35-135)
[2016-11-06 13:28] LABS: INR 1.24 (0.83-1.16); PROTIME(PATIENT) 15.6 SEC (12.0-15.0)
[2016-11-06 13:29] LABS: APTT 34.4 SEC (23.0-38.0)
[2016-11-06] MEDS: ENOXAPARIN 40 MG/0.4 ML SYR SC SCH (13:51)
--- NOTE | 2016-11-06 17:36 | PCMIDPN ---
Assessment/Plan: Assessment/Plan: * Polymicrobial diverticular abscess status post exploratory laparotomy with sigmoid colectomy, lysis of adhesions for small-bowel obstruction and drainage of abscess: Persistent symptoms of ileus. Will be started on TPN by surgery. Will continue ceftriaxone and metronidazole for polymicrobial diverticular abscess. Enterobacter was isolated from abscess which at times can produce inducible beta lactamase (AmpC); given polymicrobial nature of infection and that source control has been obtained, think continuing with ceftriaxone is reasonable in combination with metronidazole. 11/06/16 17:33 Subjective: Patient complains of abdominal distension and dry mouth/sore throat. Dry mouth and sore throat or improved with gum chewing (has history of xerostomia) Objective: Vital Signs Temp Pulse Resp BP Pulse Ox 37.1 C 72 15 129/80 H 99 11/06/16 16:00 11/06/16 16:00 11/06/16 16:00 11/06/16 16:00 11/06/16 16:00 Microbiology 11/01/16 13:56 Gram Stain - Final Pelvis - Eswab Laboratory Results 11/06/16 12:30 11/06/16 12:30 11/05/16 11/06/16 11/07/16 05:59 05:59 05:59 Intake Total 2636 2950 1450 Output Total 1985 3053 1020 Balance 651 -103 430 Ceftriaxone # 3 Metronidazole # 3 (received ertapenem from 10/25 through 11/03) - Physical Exam General Appearance: alert, no apparent distress, non-toxic EENT: NG Tube, No thrush Cardiac/Chest: regular rate, rhythm Abdomen: non-tender, distended, other (Incision intact without erythema or drainage; ALEXEI bulbs with bloody output) ICD10 Worksheet Patient Problems: Problems Problem Status Onset Diverticulitis large intestine Acute Osteoarthritis of knee Chronic
[2016-11-06] MEDS: HYDROmorphONE/DILAUDID 6 MG/30 ML PCA IV PRN (21:11)
[2016-11-06] MEDS: TPN 1 EA BAG IV SCH (22:00)
[2016-11-07] MEDS: CEPACOL LOZENGE PO PRN ×2 (02:31→21:25)
[2016-11-07] MEDS: ONDANSETRON 4 MG/2 ML VIAL IVP PRN ×2 (05:57→13:59)
[2016-11-07] MEDS: ACETAMINOPHEN 325 MG TAB PO PRN (06:06)
[2016-11-07 06:58] LABS: ANION GAP 11 mEq/L (8-16); CALCIUM 8.1 mg/dL (8.5-10.4); CARBON DIOXIDE 24 mEq/l (22-31); CHLORIDE 106 mEq/L (97-110); CREATININE 0.4 mg/dL (0.6-1.0); GLOMERULAR FILTRATION RATE > 60; GLUCOSE 95 mg/dL (70-100); POTASSIUM 3.5 mEq/L (3.5-5.2); SODIUM 141 mEq/L (134-144)
[2016-11-07 08:08] LABS: MAGNESIUM 1.7 mg/dL (1.6-2.3)
--- NOTE | 2016-11-07 09:01 | SOAPPROG ---
SOAP Progress Note Assessment/Plan: Assessment/Plan: 61 Y F with probable sigmoid diverticulitis with significant inflammation of mesentery. C/o RLQ pain. s/p ex-laparoscopy, ex-laparotomy, sigmoid colectomy, diverting colostomy, drainage of pelvic abscess. Doing well aside from ileus. Ileus. TPN started. Continue NG to suction. Has failed clamping trial x 2. Plan to advance diet/remove tube once ostomy output happens. S: no real change overnight. +gas via ostomy. no nausea. using DISPUTE SPECIALIST, but not much she thinks. pt starting to think about going home--[place] and is getting nervous about how her animals are being cared for. O: alert, nad mmm ctab, no wob. rrr abd soft, +BS, inc cdi, drains serosanguinous, ostomy pink, no output 11/07/16 08:58 Objective: Vital Signs Temp Pulse Resp BP Pulse Ox 36.6 C 61 15 130/75 H 99 11/07/16 08:35 11/07/16 08:35 11/07/16 08:35 11/07/16 08:35 11/07/16 08:35 Microbiology 11/01/16 22:20 Blood Culture - Final Blood 11/01/16 22:20 Blood Culture - Final Blood 11/01/16 13:56 Gram Stain - Final Pelvis - Eswab Laboratory Results 11/06/16 12:30 11/07/16 06:00 11/06/16 11/07/16 11/08/16 05:59 05:59 05:59 Intake Total 2950 2304 Output Total 4387 6952 Balance -103 -1371 PT 15.6 SEC (12.0-15.0) H 11/06/16 12:30 INR 1.24 (0.83-1.16) H 11/06/16 12:30 ICD10 Worksheet Patient Problems: Problems Problem Status Onset Diverticulitis large intestine Acute Osteoarthritis of knee Chronic
[2016-11-07] MEDS: cefTRIAXone 2 GM in D5W 50 ML IV SCH (10:47)
[2016-11-07] MEDS: ASPIRIN EC 81 MG TAB PO SCH (10:48)
[2016-11-07] MEDS: ENOXAPARIN 40 MG/0.4 ML SYR SC SCH (10:53)
[2016-11-07] MEDS: PANTOPRAZOLE SODIUM 40 MG in NS 100 ML IV SCH (12:47)
--- NOTE | 2016-11-07 12:55 | HOSPPROG ---
Hospitalist Progress Note Assessment/Plan: # Acute Perforated diverticulitis with abscess: ex-lap, sigmoid colectomy, colostomy, drainage POD# 5 Wound culture- E Coli/Strep anginosus, Bacteroides - remains NPO with NGT- serosanguineous drainage from ALEXEI- no stool from ostomy CT abd (personally reviewed and interpreted) partial SBO with the mesenteric abscess - continue ceftriaxone, Flagyl x 2 weeks post-drainage. - continue TPN - cont NPO/NGT # Acute throat pain- posterior oropharynx clear had no lymphadenopathy on exam- suspect maybe irritation related to NG tube - continue viscous lidocaine - continue Cepacol lozenges - continue chewing gum # Severe sepsis: resolved. Due to perforated divertic/pelvic abscess. # Mild encephalopathy- due to Ambien-DC'd- resolved # Abdominal pain-improved # OCTAVIO: FeNa <1. Resolved with IVFs # Leukocytosis- resolved with above tx 19->7 - oxygen saturations 100% on 2 L - continue current antibiotics #Acute on chronic back-normally takes Robaxin. Add IV Valium since NPO #Normocytic anemia: H/H stable. May have drop post-operatively #Diet: NPO. IVFs- adding TPN today #DVT ppx: SCDs- will discuss Lovenox with surgery #Dispo- greater than 2 midnights as patient requires Cont IV abx and intravenous nutritional support I have discussed the case with the RN- we will exchange for a 2 lumen PICC today allowing initiation of TPN Subjective: worried about her animals Objective: Vital Signs Temp Pulse Resp BP Pulse Ox 36.9 C 64 14 138/84 H 100 11/07/16 12:35 11/07/16 12:35 11/07/16 12:35 11/07/16 12:35 11/07/16 12:35 Microbiology 11/01/16 13:56 Mycobacterial Smear (VALERIE) - Final Pelvis - Eswab Mycobacterial Culture - Final 11/01/16 13:56 Gram Stain - Final Pelvis - Eswab 11/01/16 22:20 Blood Culture - Final Blood 11/01/16 22:20 Blood Culture - Final Blood Laboratory Results 11/06/16 12:30 11/07/16 06:00 11/06/16 11/07/16 11/08/16 05:59 05:59 05:59 Intake Total 2950 2304 Output Total 0149 7801 Balance -103 -1371 PT 15.6 SEC (12.0-15.0) H 11/06/16 12:30 INR 1.24 (0.83-1.16) H 11/06/16 12:30 - Physical Exam Constitutional: chronically ill appearing, obese Eyes: anicteric sclera Ears, Nose, Mouth, Throat: moist mucous membranes Cardiovascular: regular rate and rhythym Respiratory: no respiratory distress, no rales or rhonchi Gastrointestinal: normoactive bowel sounds, soft, non-tender abdomen Genitourinary: no bladder fullness Skin: warm Musculoskeletal: No asymmetric calves Neurologic: AAOx3 Psychiatric: interacting appropriately Lymph, Heme, Immunologic: no cervical LAD ICD10 Worksheet Patient Problems: Problems Problem Status Onset Diverticulitis large intestine Acute Osteoarthritis of knee Chronic
--- NOTE | 2016-11-07 14:30 | ASMTCMCOM ---
CM Note CM Note Notes: Pt started on TPN. It is unclear if she will need it at DC. [facility] will be supplying Iv ABX so can also provide TPN if needed. C/M to follow. Date Signed: 11/07/2016 02:30 PM Electronically Signed By:Edita Cotto
[2016-11-07] MEDS: TPN 1 EA BAG IV SCH (20:19)
[2016-11-07] MEDS: ONDANSETRON DISINTEGRATING 4 MG TAB PO PRN (21:25)
[2016-11-07] MEDS: DIAZEPAM 10 MG/2 ML SYR IVP PRN (23:43)
[2016-11-08 06:08] LABS: ANION GAP 9 mEq/L (8-16); CALCIUM 8.2 mg/dL (8.5-10.4); CARBON DIOXIDE 30 mEq/l (22-31); CHLORIDE 103 mEq/L (97-110); CREATININE 0.4 mg/dL (0.6-1.0); GLOMERULAR FILTRATION RATE > 60; GLUCOSE 141 mg/dL (70-100); POTASSIUM 3.3 mEq/L (3.5-5.2); SODIUM 142 mEq/L (134-144)
--- NOTE | 2016-11-08 09:47 | SOAPPROG ---
[facility] Progress Note Assessment/Plan: Assessment/Plan: 61 Y F with probable sigmoid diverticulitis with significant inflammation of mesentery. C/o RLQ pain. s/p ex-laparoscopy, ex-laparotomy, sigmoid colectomy, diverting colostomy, drainage of pelvic abscess. Ileus. Improved. +stool in appliance today and ng has been clamped with no symptoms of N/V. Will remove NGT and start clears. Anticipate she will prgress quickly at this point. S: No N/V. Pain controlled. O: alert, nad mmm ctab, no wob. rrr abd soft, +BS, inc cdi, drains serosanguinous, ostomy pink, soft brown stool in bag 11/08/16 09:45 Objective: Vital Signs Temp Pulse Resp BP Pulse Ox 36.8 C 76 16 124/78 H 98 11/08/16 08:40 11/08/16 08:40 11/08/16 08:40 11/08/16 08:40 11/08/16 08:40 Microbiology 11/01/16 13:56 Mycobacterial Smear (VALERIE) - Final Pelvis - Eswab Mycobacterial Culture - Final 11/01/16 13:56 Gram Stain - Final Pelvis - Eswab 11/01/16 22:20 Blood Culture - Final Blood 11/01/16 22:20 Blood Culture - Final Blood Laboratory Results 11/06/16 12:30 11/08/16 05:45 11/07/16 11/08/16 11/09/16 05:59 05:59 05:59 Intake Total 2304 1529 1580 Output Total 0806 3654 1025 Balance -1371 -2311 555 PT 15.6 SEC (12.0-15.0) H 11/06/16 12:30 INR 1.24 (0.83-1.16) H 11/06/16 12:30 ICD10 Worksheet Patient Problems: Problems Problem Status Onset Diverticulitis large intestine Acute Osteoarthritis of knee Chronic
[2016-11-08] MEDS: ENOXAPARIN 40 MG/0.4 ML SYR SC SCH (09:53)
[2016-11-08] MEDS: PANTOPRAZOLE SODIUM 40 MG in NS 100 ML IV SCH (09:53)
[2016-11-08] MEDS: ASPIRIN EC 81 MG TAB PO SCH (09:53)
[2016-11-08] MEDS: cefTRIAXone 2 GM in D5W 50 ML IV SCH (09:53)
[2016-11-08] MEDS: ONDANSETRON 4 MG/2 ML VIAL IVP PRN (11:21)
--- NOTE | 2016-11-08 11:25 | WOCRNPDOC ---
WOCRN Advanced Assessment Note - Colostomy Assessment, Advanced Left Lower Abdomen Colostomy Stoma Colostomy Appliance Intact: Yes Colostomy Appliance Currently in Use: Two Piece Flat, 2 3/4, Moldable Colostomy Accessory: Barrier Ring Stoma Color: Red Stoma Turgor: Moist, Friable Stoma Shape: Oval Stoma Height: Protruding Slightly Mucocutaneus Junction: Intact Colostomy Effluent: Fecal, Pasty Colostomy Size - Head-to-Toe Length X Width X Depth (cm): 2 inch Peristomal Skin: Intact Colostomy Comment/Treatment Details: Practiced changing pouch 3 times with patient. Template was created and used to cut 3 different cut to fit pouches. A soft convex one piece was used as the floor was out of moldable bags for the final placement. This pouch is not a good fit for the patient and likely will need to be changed within the next day. Please use 2 piece moldable 2 3/4 from clean supply room. Patient did the pouch change as a return demo by herself twice, but was unable to cut to the pouch due to the difficulty in using suture removal kit scissors. All patients questions were answered about activity and diet etc. Discussed follow up with outpatient unix engineer prn. Will return Tue/ for final teaching. Adore RN in room for some of the care. Home supplies have been ordered for patient as well as coloplast starter samples per her verbal consent.
[2016-11-08] MEDS ORDERED: POTASSIUM CL 20 MEQ TAB PO ONE (13:41)
--- NOTE | 2016-11-08 13:45 | HOSPPROG ---
Hospitalist Progress Note Assessment/Plan: # Acute Perforated diverticulitis with abscess: ex-lap, sigmoid colectomy, colostomy, drainage POD# 7- stool overnight Wound culture- E Coli/Strep anginosus, Bacteroides - remains NPO with NGT- serosanguineous drainage from ALEXEI- no stool from ostomy CT abd on admit (personally reviewed and interpreted) partial SBO with the mesenteric abscess - continue ceftriaxone, Flagyl x 2 weeks post-drainage. - continue TPN - NGT removed - clear diet started # Acute throat pain- posterior oropharynx clear had no lymphadenopathy on exam- suspect maybe irritation related to NG tube hopeful will improve with NGT removal and initiation of PO - continue viscous lidocaine prn - continue Cepacol lozenges - continue chewing gum # Severe sepsis: resolved. Due to perforated divertic/pelvic abscess. # Mild encephalopathy- due to Ambien-DC'd- resolved # Abdominal pain-improved # OCTAVIO: FeNa <1. Resolved with IVFs- creatinine 0.4 # Leukocytosis- resolved with above tx 19-> 7 - oxygen saturations 100% on 2 L - continue current antibiotics #Acute on chronic back-normally takes Robaxin. Add IV Valium since NPO #Normocytic anemia: H/H stable. May have drop post-operatively #Diet: advance to clears- TPN thru today can dc tomorrow if tolerates PO #DVT ppx: lovenox #Dispo- greater than 2 midnights as patient requires Cont IV abx and intravenous nutritional support I have discussed the case with sugery - NGT removed and patient advanced to clears Subjective: feels so much better Objective: Vital Signs Temp Pulse Resp BP Pulse Ox 37.1 C 83 16 133/89 H 94 11/08/16 11:51 11/08/16 11:51 11/08/16 11:51 11/08/16 11:51 11/08/16 11:51 Microbiology 11/01/16 13:56 Mycobacterial Smear (VALERIE) - Final Pelvis - Eswab Mycobacterial Culture - Final 11/01/16 13:56 Gram Stain - Final Pelvis - Eswab 11/01/16 22:20 Blood Culture - Final Blood 11/01/16 22:20 Blood Culture - Final Blood Laboratory Results 11/06/16 12:30 11/08/16 05:45 11/07/16 11/08/16 11/09/16 05:59 05:59 05:59 Intake Total 2304 1529 1580 Output Total 8350 4215 7933 Balance -1371 -2315 -165 PT 15.6 SEC (12.0-15.0) H 11/06/16 12:30 INR 1.24 (0.83-1.16) H 11/06/16 12:30 - Physical Exam Constitutional: obese Eyes: anicteric sclera Ears, Nose, Mouth, Throat: moist mucous membranes Cardiovascular: No edema Respiratory: no respiratory distress Gastrointestinal: No guarding Genitourinary: No torres in urethra Skin: normal color Musculoskeletal: No asymmetric calves Neurologic: AAOx3 Psychiatric: interacting appropriately Lymph, Heme, Immunologic: no cervical LAD ICD10 Worksheet Patient Problems: Problems Problem Status Onset Diverticulitis large intestine Acute Osteoarthritis of knee Chronic
--- NOTE | 2016-11-08 14:26 | PCMIDPN ---
Assessment/Plan: Assessment/Plan: * Polymicrobial diverticular abscess status post exploratory laparotomy with sigmoid colectomy, lysis of adhesions for small-bowel obstruction and drainage of abscess: NG tube advanced and started on clear liquids. Feels markedly improved. Continue ceftriaxone and Flagyl with anticipated 2 week course post abscess drainage. Plan for oral Flagyl once p.o. intake stable given its excellent oral bioavailability. 11/08/16 14:23 Subjective: Patient feels much better. NG tube removed. Started on clear liquids. Objective: Vital Signs Temp Pulse Resp BP Pulse Ox 37.1 C 88 16 118/78 97 11/08/16 11:51 11/08/16 14:00 11/08/16 14:00 11/08/16 14:00 11/08/16 14:00 Microbiology 11/01/16 13:56 Mycobacterial Smear (VALERIE) - Final Pelvis - Eswab Mycobacterial Culture - Final 11/01/16 13:56 Gram Stain - Final Pelvis - Eswab Laboratory Results 11/06/16 12:30 11/08/16 05:45 11/07/16 11/08/16 11/09/16 05:59 05:59 05:59 Intake Total 2304 1529 1580 Output Total 0424 1545 1741 Balance -1371 -2315 -165 Ceftriaxone # 5 Metronidazole # 5 Antibiotics # 7 post drainage of abscess - Physical Exam General Appearance: alert, no apparent distress EENT: No scleral icterus, No conjunctival petechiae Cardiac/Chest: regular rate, rhythm Abdomen: non-tender, distended (Significantly decreased), other (Incision intact with small amount serous drainage inferiorly; 2 ALEXEI drains with minimal drainage) ICD10 Worksheet Patient Problems: Problems Problem Status Onset Diverticulitis large intestine Acute Osteoarthritis of knee Chronic
[2016-11-08] MEDS ORDERED: HYDROmorphONE/DILAUDID 1 MG/ML INJ IVP PRN (15:11)
[2016-11-08] MEDS: POTASSIUM Cl (KCl) 100 ML IV SCH ×4 (16:32→21:45)
[2016-11-08] MEDS: TPN 1 EA BAG IV SCH (20:50)
[2016-11-08] MEDS: ONDANSETRON DISINTEGRATING 4 MG TAB PO PRN (23:42)
[2016-11-08] MEDS: DIAZEPAM 10 MG/2 ML SYR IVP PRN (23:42)
[2016-11-08] MEDS: diphenhydrAMINE 25 MG CAP PO PRN (23:42)
[2016-11-09 06:32] LABS: ALANINE AMINOTRANSFERASE 42 IU/L (9-52); ALBUMIN 2.6 g/dL (3.5-5.0); ALKALINE PHOSPHATASE 96 IU/L (38-126); ANION GAP 6 mEq/L (8-16); ASPARTATE AMINOTRANSFERASE 39 IU/L (14-46); BILIRUBIN,TOTAL 0.3 mg/dL (0.1-1.4); BILIRUBIN-CONJUGATED 0.2 mg/dL (0.0-0.5); BILIRUBIN-UNCONJUGATED 0.1 mg/dL (0.0-1.1); CALCIUM 8.5 mg/dL (8.5-10.4); CARBON DIOXIDE 32 mEq/l (22-31); CHLORIDE 103 mEq/L (97-110); CREATININE 0.5 mg/dL (0.6-1.0); GLOMERULAR FILTRATION RATE > 60; GLUCOSE 135 mg/dL (70-100); POTASSIUM 3.8 mEq/L (3.5-5.2); SODIUM 141 mEq/L (134-144); TOTAL PROTEIN 5.4 g/dL (6.3-8.2)
[2016-11-09] MEDS: ASPIRIN EC 81 MG TAB PO SCH (09:12)
[2016-11-09] MEDS: ENOXAPARIN 40 MG/0.4 ML SYR SC SCH (09:12)
[2016-11-09 09:29] VITALS: RESP 16; O2SAT 99
[2016-11-09] MEDS: cefTRIAXone 2 GM in D5W 50 ML IV SCH (09:37)
--- NOTE | 2016-11-09 10:08 | SOAPPROG ---
SOAP Progress Note Assessment/Plan: Assessment/Plan: 61 Y F with probable sigmoid diverticulitis with significant inflammation of mesentery. C/o RLQ pain. s/p ex-laparoscopy, ex-laparotomy, sigmoid colectomy, diverting colostomy, drainage of pelvic abscess. Doing very well!!! Advance diet. Wean from TPN. D/c ALEXEI drains. D/w'ed Dr. Anguiano. Dispo: likely home tomorrow, but later today still a remote possibility. Will go home with home care, PICC line, IV abx. S: Eager to go home. Doing fine with clear liquids. Walking well. Denies fevers/ chills. O: alert, nad mmm ctab, no wob. rrr abd soft, +BS, inc cdi, drains scant serosanguinous, ostomy pink, soft brown stool in bag 11/09/16 10:04 Objective: Vital Signs Temp Pulse Resp BP Pulse Ox 36.9 C 85 16 117/86 H 99 11/09/16 08:00 11/09/16 08:00 11/09/16 08:00 11/09/16 09:12 11/09/16 08:00 Microbiology 11/01/16 13:56 Gram Stain - Final Pelvis - Eswab Anaerobic Culture - Final Escherichia Coli Streptococcus Anginosus Group Bacteroides Fragilis Enterobacter Aerogenes Laboratory Results 11/06/16 12:30 11/09/16 06:10 11/08/16 11/09/16 11/10/16 05:59 05:59 05:59 Intake Total 1526 5322 Output Total 2550 5275 Balance -2315 127 PT 15.6 SEC (12.0-15.0) H 11/06/16 12:30 INR 1.24 (0.83-1.16) H 11/06/16 12:30 ICD10 Worksheet Patient Problems: Problems Problem Status Onset Diverticulitis large intestine Acute Osteoarthritis of knee Chronic
[2016-11-09] MEDS: PANTOPRAZOLE SODIUM 40 MG in NS 100 ML IV SCH (10:12)
--- NOTE | 2016-11-09 10:40 | PCMIDPN ---
Assessment/Plan: Assessment/Plan: 1. Polymicrobial diverticulitis with abscess: s/p I & d, colectomy - I & D on 11/01/16 -Currently on Ceftriaxone + Flagyl. Can change to PO flagyl at time of discharge. - on D#11/18 (tentative duration) - Will start interagency form. f/u with Dr. Guzman in office - Surgical note reviewed. likely home tomorrow. Weaning off TPN today and likely to have KEVON drains removed today as well - care coordinated with hospitalist team. MEds Ceftraixone 2 gm daily-11/03/16---#9 from wash out Flagyl 500mg q8- 11/03/16---#9 from wash out. Subjective: afebrile. feeling better each day. abd pain down to 2/10. denies n, v. having stool. on TPN but did start some clears today. denies sob. kevon drains in place still. Objective: Vital Signs Temp Pulse Resp BP Pulse Ox 36.9 C 85 16 117/86 H 99 11/09/16 08:00 11/09/16 08:00 11/09/16 08:00 11/09/16 09:12 11/09/16 08:00 Microbiology 11/01/16 13:56 Gram Stain - Final Pelvis - Eswab Anaerobic Culture - Final Escherichia Coli Streptococcus Anginosus Group Bacteroides Fragilis Enterobacter Aerogenes Laboratory Results 11/06/16 12:30 11/09/16 06:10 11/08/16 11/09/16 11/10/16 05:59 05:59 05:59 Intake Total 1529 5399 Output Total 3844 5272 Balance -2315 127 - Physical Exam General Appearance: alert, no apparent distress Respiratory: lungs clear Cardiac/Chest: regular rate, rhythm Extremities: swelling (LE bilaterally) Abdomen: normal bowel sounds, soft, distended, other (two kevon drains in place. little to no drainage within. midline vertical incisoinn site noted, vivien in place, edges well opposed, mild erythema just around the vivien otherwise no significant erythema. and no drainage. colostomy noted. ) - Time Spent With Patient Time Spent with Patient: greater than 35 minutes Time Spent with Patient: Greater than 35 minutes spent on this patients care, greater than 50% of time spent counseling, educating, and coordinating care regarding the above mentioned plan. ICD10 Worksheet Patient Problems: Problems Problem Status Onset Osteoarthritis of knee Chronic Diverticulitis large intestine Acute
--- NOTE | 2016-11-09 10:42 | PDIAF ---
- Diagnosis Diagnosis: POlymicrobial diverticulitis with abscess Code Status: Full Code - Medication Management Discharge Medications: Medications to Continue on Transfer Acetaminophen [Tylenol 325mg (*)] 650 mg PO Q4-6PRN PRN 10/25/16 [Last Taken 04:00] Aspirin EC [Aspirin EC 81 mg (*)] 81 mg PO DAILY 10/25/16 [Last Taken 10/22/16] Herbals/Supplements -Info Only 1 ea PO DAILY 10/25/16 [Last Taken Unknown] Ibuprofen [Motrin (*)] 600 mg PO Q4-6PRN PRN 10/25/16 [Last Taken 10/25/16 10:00 ] Lisinopril [Zestril 20 mg (*)] 20 mg PO DAILY 10/25/16 [Last Taken 10/22/16] Meloxicam 15 mg PO DAILY 10/25/16 [Last Taken 10/22/16] [place]-3 Fatty Acids [Fish Oil 1000 mg (*)] 1,000 mg PO DAILY 10/25/16 [Last Taken Unknown] amLODIPine BESYLATE [Norvasc 2.5 mg (*)] 2.5 mg PO DAILY 10/25/16 [Last Taken ] Residential Antibiotics: Ceftriaxone 2g IV daily, Flagyl 500mg PO Q8 Board Layer Antibiotic Stop Date: 11/16/16 Discharge Medications: Refer to the Discharge Home Medication list for PRN reason. PICC Care - Routine: Yes - Labs/Radiology CBC Date: 11/15/16 CMP Date: 11/15/16 CRP Date: 11/15/16 Call or Fax Lab and Imaging Results to: Dr. Guzman: [phone] - Follow Up Care Current Providers and Referrals: ZAKIA ROBERTS [Other] - As per Instructions Selvin Guzman MD [Medical Doctor] - 11/16/16 (f/u with Dr. Guzman (INfectious diseases) on 11/16/16 at : 10:30am. CHeck in time is at 10:10am. Thanks. )
[2016-11-09 12:10] VITALS: BP 120/74; PULSE 83; TEMP 98.6
--- NOTE | 2016-11-09 13:41 | ASMTCMCOM ---
CM Note CM Note Notes: Sent PICC report and ID orders to [facility]. Patient will d/c on IV Ceftriaxone and PO Flagyl and have homecare support with [facility]. Jocelyn from [facility] to meet with patient this afternoon to answer any questions about home infusion. Date Signed: 11/09/2016 01:40 PM Electronically Signed By:Deb Glynn
--- NOTE | 2016-11-09 13:45 | PDIAF ---
- Diagnosis Diagnosis: POlymicrobial diverticulitis with abscess Code Status: Full Code - Medication Management Discharge Medications: Medications to Continue on Transfer Acetaminophen [Tylenol 325mg (*)] 650 mg PO Q4-6PRN PRN 10/25/16 [Last Taken 04:00] Aspirin EC [Aspirin EC 81 mg (*)] 81 mg PO DAILY 10/25/16 [Last Taken 10/22/16] Herbals/Supplements -Info Only 1 ea PO DAILY 10/25/16 [Last Taken Unknown] Ibuprofen [Motrin (*)] 600 mg PO Q4-6PRN PRN 10/25/16 [Last Taken 10/25/16 10:00 ] Lisinopril [Zestril 20 mg (*)] 20 mg PO DAILY 10/25/16 [Last Taken 10/22/16] Meloxicam 15 mg PO DAILY 10/25/16 [Last Taken 10/22/16] [place]-3 Fatty Acids [Fish Oil 1000 mg (*)] 1,000 mg PO DAILY 10/25/16 [Last Taken Unknown] amLODIPine BESYLATE [Norvasc 2.5 mg (*)] 2.5 mg PO DAILY 10/25/16 [Last Taken ] Metronidazole 500 mg PO Q8 #21 tablet 11/09/16 [Last Taken Unknown] Ondansetron Odt [Zofran Odt 4 mg (*)] 4 mg PO Q4HRS PRN #30 tab 11/09/16 [Last Taken Unknown] Pantoprazole Sodium [Protonix 40mg (*)] 40 mg PO DAILY #30 tab 11/09/16 [Last Taken Unknown] cefTRIAXone [Rocephin] 2 gm IV DAILY vial 11/09/16 [Last Taken Unknown] Assistant Attorney General Antibiotics: Ceftriaxone 2g IV daily, Flagyl 500mg PO Q8 Assistant Attorney General Antibiotic Stop Date: 11/16/16 Discharge Medications: Refer to the Discharge Home Medication list for PRN reason. PICC Care - Routine: Yes - Orders Services needed: Home Care, Registered Nurse Home Care Face to Face: I certify that this patient was under my care and that I had the required [id number] encounter meeting the encounter requirements on the discharge day. My findings support the fact that the patient is homebound as defined in CMS Chapter 7 Medicare Benefits Manual 30.1.1, The condition of the patient is such that there exists a normal inability to leave home and consequently, leaving home would require a considerable and taxing effort. Diet Recommendation: other Diet Texture: Regular Texture Diet - Labs/Radiology CBC Date: 11/15/16 CMP Date: 11/15/16 CRP Date: 11/15/16 Call or Fax Lab and Imaging Results to: Dr. Guzman: [phone] - Follow Up Care Current Providers and Referrals: ZAKIA ROBERTS [Other] - As per Instructions Domo Anguiano MD [Medical Doctor] - Selvin Guzman MD [Medical Doctor] - 11/16/16 (f/u with Dr. Guzman (INfectious diseases) on 11/16/16 at : 10:30am. CHeck in time is at 10:10am. Thanks. )
--- NOTE | 2016-11-09 14:52 | ASMTCMCOM ---
CM Note CM Note Notes: CM Discharge Note: Patient discharged to home with infusion ([facility]) and homecare ([facility]) services. Paperwork/orders faxed to both agencies who confirmed receipt. Patient will travel home with family members. Date Signed: 11/09/2016 02:51 PM Electronically Signed By:Deb Glynn
--- NOTE | 2016-11-09 18:18 | GDS ---
[f rep st] DISCHARGE SUMMARY DISCHARGE DIAGNOSES: Include: 1. Severe sepsis secondary to diverticular pelvic abscess. 2. Acute perforated diverticulitis with abscess, polymicrobial. 3. Acute encephalopathy thought secondary to medications, resolved. 4. Acute kidney injury secondary to hypovolemia, resolved. 5. Acute on chronic back pain, musculoskeletal. 6. Acute blood loss anemia secondary to postoperative losses, stable. 7. Obesity. 8. Xerostomia. 9. Hypertension. HISTORY OF PRESENT ILLNESS: A 61-year-old female with a history of hypertension, presenting with co mplaints of nausea, vomiting and diarrhea. For details of patient's initial presentation, please se e the history and physical dated 10/25/2016. CONSULTATIVE SERVICES ON THIS PATIENT: Include: 1. Infectious Disease. 2. General Surgery. PROCEDURES: On 11/01/2016, patient was taken to the operating room for exploratory laparotomy, lata meeks of her pelvic abscess, sigmoid colon resection, and colostomy placement. On 11/05/2016, patient had a PICC line placed. HOSPITAL COURSE: By issue: 1. Sepsis. Patient presented with abnormal vital signs, leukocytosis. Presumed source intraabdomi nal. Was ultimately diagnosed with a polymicrobial abscess in her pelvis from a perforated divertic ulum. The patient was taken for intraoperative washout, drainage and hemicolectomy. Continued on I V antibiotics and supportive treatment through her stay. Patient had normal vital signs, normal whi te count on the day of disposition. She will complete an outpatient course of antibiotics. 2. Polymicrobial abscess secondary to perforated diverticulitis. The patient grew E coli streptoco ccus, Bacteroides, and Enterobacter from Gram stain from her pelvic swabs. She will complete a full 2-week course from the date of drainage of this abscess with IV ceftriaxone and Flagyl, which will be changed to oral on the day of disposition. She will follow with the outpatient infectious diseas e specialist and receive IV infusions of ceftriaxone with home nursing. 3. Acute blood loss anemia secondary to her postoperative state. The patient is being discharged w ith a hemoglobin in the 8s, which has been stable for over 72 hours. There are no active signs of b leeding. Both her NG-tube and ALEXEI drains have been removed without complication. Her ostomy output is nonbloody. The patient can have her counts followed in the outpatient setting. 4. Xerostomia with throat pain. The patient did have a lot of symptoms of throat discomfort while the NG tube was in place. After removed, she had near resolution of these complaints. She will con tinue to use gum for mouth moistening, long-term. 5. Hypertension. Patient is continued on her dual agent antihypertensive regimen at disposition wi thout change. MEDICATIONS AT THE TIME OF DISCHARGE: Please reference med rec printed on 11/09/2016. PENDING STUDIES: At the time of this dictation, include fungal cultures from her pelvic swab on , which are preliminary no growth to date. FOLLOWUP APPOINTMENTS: Include: 1. With Infectious Disease prior to the discontinuation of her long-term antibiotics. 2. With Dr. Louis Anguiano for postoperative, post disposition followup. 3. With her primary care provider for ongoing management of her medical comorbidities. TIME SPENT: I spent greater than 30 minutes in the planning and coordination of this discharge. /[id number]/MODL
[2016-11-10] MEDS ORDERED: PANTOPRAZOLE SODIUM 40 MG TAB PO SCH (09:00)
--- NOTE | 2016-11-14 13:52 | GCON ---
[f rep st] CONSULTATION DATE OF CONSULTATION: 10/25/2016 HISTORY OF PRESENT ILLNESS: The patient is a 61-year-old female who presents with right lower quadra nt pain for several days. She is admitted at this time for observation for diverticulitis. She has had symptoms for about 3 days. She has never had this happen before. She has been having frequent w atery diarrhea stools but no blood. She has not been on antibiotics till this admission. No out of country travel. No one else around her is sick. CT scan suggests diverticulitis and is certain that the appendix is uninvolved. PAST MEDICAL HISTORY: Includes a , cholecystectomy, total knee arthroplasty, lumbar fusion, Achilles tendon repair, carpal tunnel surgery. She also has hypertension and chronic low back pain. REVIEW OF SYSTEMS: A full 10-point review of systems was noncontributory other than the present illn ess and the past history. SOCIAL HISTORY: She does not smoke. She denies any coronary artery disease. FAMILY HISTORY: Noncontributory. MEDICATIONS: Include Norvasc, meloxicam, lisinopril. ALLERGIES: None to medications. PHYSICAL EXAM: GENERAL: Alert, cooperative 61-year-old female in no acute distress. HEAD and NECK: Reveals no icterus. No adenopathy. No oral lesions. No thyromegaly. Neck is supple. Pupils are normal. CHEST: Clear and symmetric. CARDIAC: Regular rhythm without murmurs. ABDOMEN: Soft. S he is tender in the lower abdomen, particularly on the right side. She is overweight. She has posit viraj bowel sounds. There are no obvious hernias. EXTREMITIES: Benign with full pulses. SKIN: Reve als no rashes or significant skin lesions. PSYCH: Reveals her to be alert cooperative and oriented. NEUROLOGIC: Physiologic. IMPRESSION: Probable diverticulitis, 1st episode. PLAN: Observation on antibiotics, possible followup CT scan, possible surgery if not improving. Ris ks and options have been fully discussed with the patient who wishes to proceed. /[id number]/MODL
== END 2016-11-09 17:05 | disposition home health service (06) | DRG 853 ==
LOC: F1N 20:05
PROVIDERS: ADMIT Internal Medicine; ATTEND Internal Medicine
PROC: 0D9W0ZZ Drainage of Peritoneum, Open Approach (ICD-10-PCS; principal; 2016-11-01 11:45)
PROC: 0D1N0Z4 Bypass Sigmoid Colon to Cutaneous, Open Approach (ICD-10-PCS; principal; 2016-11-01 11:45)
PROC: 0DJD4ZZ Inspection of Lower Intestinal Tract, Percutaneous Endoscopic Approach (ICD-10-PCS; principal; 2016-11-01 11:45)
PROC: 0DBN0ZZ Excision of Sigmoid Colon, Open Approach (ICD-10-PCS; principal; 2016-11-01 11:45)
PROC: 3E0436Z Introduction of Nutritional Substance into Central Vein, Percutaneous Approach (ICD-10-PCS; 2016-11-02)
PROC: 02H633Z Insertion of Infusion Device into Right Atrium, Percutaneous Approach (ICD-10-PCS; 2016-11-05)
DX: A41.9 Sepsis, unspecified organism (principal); R65.20 Severe sepsis without septic shock; K57.20 Diverticulitis of large intestine with perforation and abscess without bleeding; G92 Toxic encephalopathy; T42.6X5A Adverse effect of other antiepileptic and sedative-hypnotic drugs, initial encounter; N17.9 Acute kidney failure, unspecified; K56.5 Intestinal adhesions [bands] with obstruction (postinfection); D62 Acute posthemorrhagic anemia; K11.7 Disturbances of salivary secretion; I10 Essential (primary) hypertension; E80.6 Other disorders of bilirubin metabolism; E66.9 Obesity, unspecified; Z68.36 Body mass index [BMI] 36.0-36.9, adult
CPT/HCPCS: 82947-QW; 96374; 97165-GO; C1751; J0696; J1100; J1170; J1335; J1650; J1885; J2001; J2250; J2405; J2550; J2704; J3010; Q9967

== ENCOUNTER → 2017-01-21 | Outpatient (CLI) | payer OTHER ==
[~2017-01-21] MED LIST changes: -GADOBUTROL 10 ML VIAL IVP ONE; +IOPAMIDOL (ISOVUE-300) 100 ML BTL ONE
== END ==
LOC: FIMAGING 11:15
PROVIDERS: ATTEND Surgery
DX: N20.0 Calculus of kidney (principal)
CPT/HCPCS: Q9967

== ENCOUNTER 2017-02-01 09:12 | Inpatient (IN) | payer OTHER ==
--- NOTE | 2017-02-01 07:38 | PDHPUP ---
History & Physical Update H&P update statement: This history and physical update is based on an assessment of the patient which was completed after admission or registration (within 24 hours), but prior to the surgery/procedure. H&P update: H&P reviewed & patient examined, no change in patient's condition since H&P completed H&P changes: CT scan shows resolution of inflammation/infection.
[~2017-02-01 09:12] MED LIST changes: -IOPAMIDOL (ISOVUE-300) 100 ML BTL ONE; +cefOXitin SODIUM 2 GM in D5W 100 ML IV ONE
[2017-02-01] MEDS ORDERED: LR 1,000 ML IV ONE (09:25)
[2017-02-01] MEDS ORDERED: LIDOCAINE 1% 2 ML INJ ID PRN (09:25)
[2017-02-01 10:17] LABS: % IMMATURE GRANULYOCYTES 0.3 % (0.0-1.1); ABSOLUTE IMMATURE GRANULOCYTES 0.02 10^3/uL (0.00-0.10); ADD DIFF? NO; ADD MORPH? NO; ADD SCAN? NO; ATYPICAL LYMPHOCYTE FLAG 10 (0-99); FRAGMENT RBC FLAG 0 (0-99); HEMATOCRIT 41.3 % (38.0-47.0); LEFT SHIFT FLG 0 (0-99); LIPEMIA HEMOLYSIS FLAG 90 (0-99); MEAN CELL HEMOGLOBIN CONCENTR. 33.9 g/dL (32.4-36.7); MEAN CELL VOLUME 91.4 fL (81.5-99.8); MEAN PLATELET VOLUME 9.3 fL (8.7-11.7); PLATELET CLUMPS FLAG 0 (0-99); PLATELET COUNT 352 10^3/uL (150-400); RED BLOOD CELL COUNT 4.52 10^6/uL (4.18-5.33); RED CELL DISTRIBUTION WIDTH 13.2 % (11.5-15.2)
[2017-02-01 10:35] LABS: ANION GAP 13 mEq/L (8-16); CALCIUM 10.3 mg/dL (8.5-10.4); CARBON DIOXIDE 23 mEq/l (22-31); CHLORIDE 105 mEq/L (97-110); CREATININE 0.7 mg/dL (0.6-1.0); GLOMERULAR FILTRATION RATE > 60; GLUCOSE 105 mg/dL (70-100); POTASSIUM 4.2 mEq/L (3.5-5.2); SODIUM 141 mEq/L (134-144)
[2017-02-01] MEDS ORDERED: BUPIVACAINE 0.5% 30 ML SDV ONE ×2 (10:36→15:20)
[2017-02-01] MEDS ORDERED: ceFAZolin 1 GM/5 ML SYR ONE (10:36)
[2017-02-01] MEDS ORDERED: HEPARIN 1000 UNIT/1 ML MDV ONE (10:36)
[2017-02-01] MEDS ORDERED: fentaNYL 250 MCG/5 ML INJ ONE (10:49)
[2017-02-01] MEDS ORDERED: PROPOFOL/EMULSION 500 MG/50 ML BOTTLE IV ONE ×2 (10:50→10:51)
[2017-02-01] MEDS ORDERED: BUPIVACAINE 0.25% 30 ML SDV ONE (11:08)
[2017-02-01] MEDS ORDERED: MIDAZOLAM 2 MG/2 ML VIAL ONE (11:10)
[2017-02-01] MEDS ORDERED: HYDROmorphONE/DILAUDID 1 MG/ML INJ IVP PRN (11:41)
[2017-02-01] MEDS ORDERED: OXYCODONE/APAP 5/325 TAB PO PRN (11:41)
[2017-02-01] MEDS ORDERED: ONDANSETRON 4 MG/2 ML VIAL IVP PRN ×2 (11:41→15:51)
[2017-02-01] MEDS ORDERED: ACETAMINOPHEN 325 MG TAB PO PRN (11:42)
--- NOTE | 2017-02-01 11:44 | POSTOPPROG ---
Post Op Note Date of Operation: 02/01/17 Surgeon: Lydia Panda Patient Access Coordinator: Lydia Panda Anesthesiologist: Marilyn Reddy Anesthesia: GET(General Endotracheal) Pre-op Diagnosis: colostomy status, hx diverticulitis Post-op Diagnosis: same Procedure: laparoscopic assisted colostomy takedown c partial descending colectomy Findings: long rectal stump, hand sewn anastomosis Inf/Abcess present in the surg proc area at time of surgery?: No EBL: 50-100 Complications: none Drains: Pilo Leigh, Tavon Specimen(s): to pathology
[2017-02-01] MEDS ORDERED: HYDROmorphone HCL/NS/PF 0.4 MG/2 ML SYR IVP PRN (11:52)
[2017-02-01] MEDS ORDERED: KETOROLAC 15 MG/1 ML SDV IVP SCH (12:00)
[2017-02-01] MEDS ORDERED: MIDAZOLAM 2 MG/2 ML VIAL IVP ONE (12:42)
[2017-02-01] MEDS ORDERED: ALBUTEROL 3 ML DEYVIAL IH PRN (12:44)
[2017-02-01] MEDS ORDERED: LABETALOL HCL 5 MG/ML 20 ML MDV IVP PRN (12:44)
[2017-02-01] MEDS ORDERED: METOCLOPRAMIDE 10 MG/2 ML VIAL IVP PRN ×2 (12:44→15:51)
[2017-02-01] MEDS ORDERED: DEXAMETHASONE 4 MG/ML VIAL IVP PRN (12:44)
[2017-02-01] MEDS ORDERED: LR 500 ML IV PRN (12:44)
[2017-02-01] MEDS ORDERED: NALOXONE HCL 0.4 MG/ML INJ IVP PRN ×2 (12:44→15:51)
--- NOTE | 2017-02-01 12:44 | PDANEPAE ---
ANE History of Present Illness 61 year old woman with history of diverticulitis for colectomy and colostomy take down. ANE Past Medical History - Cardiovascular History Hx Hypertension: Yes Hx Arrhythmias: No Hx Coronary Artery / Peripheral Vascular Disease: No Hx CHF / Valvular Disease: No Hx Palpitations: No Cardiovascular History Comment: pcp monitors bp - Pulmonary History Hx COPD: No Hx Asthma/Reactive Airway Disease: No Hx Recent Upper Respiratory Infection: No Hx Oxygen in Use at Home: No Hx Sleep Apnea: No Sleep Apnea Screening Result - Last Documented: Negative Pulmonary History Comment: hx of PNA x2 - Neurologic History Hx Cerebrovascular Accident: No Hx Seizures: No Hx Dementia: No Neurologic History Comment: HX MIGRAINES- NONE X 2 Y - Endocrine History Hx Diabetes: No - Renal History Hx Renal Disorders: No - Liver History Hx Hepatic Disorders: No - Neurological & Psychiatric Hx Hx Neurological and Psychiatric Disorders: No Neurological / Psychiatric History Comment: OCC MIGRAINE. CLAUSTROPHOBIC - Cancer History Hx Cancer: No - Congenital Disorder History Hx Congenital Disorders: No - GI History Hx Gastrointestinal Disorders: Yes Gastrointestinal History Comment: 11/01/16 SBO, perforated diverticulitis. colostomy - Other Health History Other Health History: none - Chronic Pain History Chronic Pain: Yes (chronic lower back) - Surgical History Prior Surgeries: 11/01/16 exploratory lap, dominic, sigmoid colectomy, hartmans pouch with Anguiano. RT ACHILLES TENDON REPAIR 2007. LT KNEE SCOPE X 2. LAP FROYLAN. OLENA CARPAL TUNNEL. X 2. REMVL CYST LT HAND. TUBAL LIGATION. Bilateral TKA. BACK SURG TLIF/ MICRODISC 05-18-13. RUDY GRAF Review of Systems Review of systems is: negative Review of Systems: - Exercise capacity METS (RN): 4 METS ANE Patient History - Allergies Allergies/Adverse Reactions: No Allergies Allergy (Verified 01/31/17 12:34) - Home Medications Home Medications: Acetaminophen [Tylenol 325mg (*)] 650 mg PO Q4-6PRN PRN 10/25/16 [Last Taken ] Aspirin EC [Aspirin EC 81 mg (*)] 81 mg PO DAILY 10/25/16 [Last Taken 2 Weeks Ago ~01/14/17] Herbals/Supplements -Info Only 1 ea PO DAILY 10/25/16 [Last Taken 2 Weeks Ago ~ 01/14/17] Lisinopril [Zestril 20 mg (*)] 20 mg PO DAILY 10/25/16 [Last Taken 02/01/17 07: 00] Meloxicam 15 mg PO DAILY 10/25/16 [Last Taken 2 Weeks Ago ~01/14/17] [place]-3 Fatty Acids [Fish Oil 1000 mg (*)] 1,000 mg PO DAILY 10/25/16 [Last Taken 2 Weeks Ago ~01/14/17] amLODIPine BESYLATE [Norvasc 2.5 mg (*)] 2.5 mg PO DAILY 10/25/16 [Last Taken 07:00] - NPO status NPO Since - Liquids (Date): 01/31/17 NPO Since - Liquids (Time): 19:00 NPO Since - Solids (Date): 01/31/17 NPO Since - Solids (Time): 21:00 - Smoking Hx Smoking Status: Never smoked - Family Anes Hx Family Hx Anesthesia Complications: none ANE Labs/Vital Signs - Labs Result Diagrams: 02/01/17 10:00 02/01/17 10:00 - Vital Signs Blood Pressure: 125/77 Heart Rate: 87 Respiratory Rate: 18 O2 Sat (%): 98 Height: 165.1 cm Weight: 97.069 kg ANE Physical Exam - Airway Mallampati Score: Class 2 Mouth exam: normal dental/mouth exam - Pulmonary Pulmonary: no respiratory distress - Cardiovascular Cardiovascular: regular rate and rhythym - ASA Status ASA Status: II ANE Anesthesia Plan Anesthesia Plan: general endotracheal anesthesia Regional Anesthesia: continuous NB Urgent/Emergent Case: Jermaine corrales completed preop but documented later for safe timely pt care
[2017-02-01] MEDS ORDERED: fentaNYL 100 MCG/2 ML INJ ONE (15:49)
[2017-02-01] MEDS ORDERED: NARCOTIC DRIP BAG-TOTAL ALL TYPES EP PRN (15:51)
[2017-02-01] MEDS ORDERED: diphenhydrAMINE 25 MG CAP PO PRN (15:51)
[2017-02-01] MEDS: fentaNYL 100 MCG/2 ML INJ IVP PRN ×2 (15:51→15:56)
[2017-02-01] MEDS: HYDROmorph 10MCG/ML&BUP 0.0625% in 100ML NS EP SCH ×2 (16:12→21:00)
--- NOTE | 2017-02-01 16:29 | POSTANESTH ---
Post Anesthetic Evaluation Cardiovascular Status: Normal, Stable Respiratory Status: Normal, Stable Level of Consciousness/Mental Status: Mildly Sleepy, Arousable Pain Control: Adequate, Prn Tx Ordered Nausea/Vomiting Control: Adequate, Prn Tx Ordered Complications Possibly Related to Anesthesia: None Noted
[2017-02-01] MEDS: NS W/ 20 KCl/L 1,000 ML IV SCH (17:55)
[2017-02-01] MEDS: cefOXitin SODIUM 1 GM in D5W 50 ML IV SCH ×2 (18:30→23:12)
[2017-02-01] MEDS ORDERED: MEPERIDINE 25 MG/ML SYR IVP PRN (19:32)
[2017-02-01] MEDS ORDERED: NS BOLUS 500 ML (Wide open) IV ONE (23:58)
[2017-02-02] MEDS: ACETAMINOPHEN 325 MG TAB PO PRN ×2 (02:50→20:54)
[2017-02-02] MEDS: NS W/ 20 KCl/L 1,000 ML IV SCH ×3 (03:32→20:29)
[2017-02-02] MEDS ORDERED: ALBUMIN 5% 500 ML IV ONE ×3 (04:00→08:30)
[2017-02-02] MEDS: cefOXitin SODIUM 1 GM in D5W 50 ML IV SCH ×3 (05:34→11:52)
[2017-02-02 05:51] LABS: HEMATOCRIT 31.2 % (38.0-47.0); HEMOGLOBIN 9.9 g/dL (12.6-16.3)
[2017-02-02 06:11] LABS: ANION GAP 9 mEq/L (8-16); CALCIUM 8.4 mg/dL (8.5-10.4); CARBON DIOXIDE 22 mEq/l (22-31); CHLORIDE 108 mEq/L (97-110); CREATININE 0.9 mg/dL (0.6-1.0); GLOMERULAR FILTRATION RATE > 60; GLUCOSE 94 mg/dL (70-100); POTASSIUM 4.3 mEq/L (3.5-5.2); SODIUM 139 mEq/L (134-144)
[2017-02-02] MEDS: HYDROmorph 10MCG/ML&BUP 0.0625% in 100ML NS EP SCH (06:20)
[2017-02-02] MEDS ORDERED: NALOXONE HCL 0.4 MG/ML INJ IVP PRN (09:14)
--- NOTE | 2017-02-02 09:15 | SOAPPROG ---
SOAP Progress Note Assessment/Plan: Assessment: Post op day 1 s/p colectomy. Thoracic epidural provided excellent pain relief through the night. Some hypotension, responsive to fluid bolus. This morning, epidural no longer helpful. Test of sensory level indicates catheter no longer in epidural space or dose too low for significant relief. Plan: Epidural cath 02/02/17 09:11 Discontinue Epidural cath and begin IRONWORKER. Catheter removed tip intact. Objective: Vital Signs Temp Pulse Resp BP Pulse Ox 37.2 C 76 16 74/39 L 98 02/02/17 07:33 02/02/17 07:33 02/02/17 07:33 02/02/17 07:33 02/02/17 07:33 Laboratory Results 02/02/17 05:30 02/02/17 05:30 02/01/17 02/02/17 02/03/17 05:59 05:59 05:59 Intake Total 3000 Output Total 1125 Balance 1875 Physical Exam - Physical Exam General Appearance: no apparent distress Neck: supple Abdomen: soft Neuro/Psych: no motor/sensory deficits, normal mood/affect, oriented x 3 ICD10 Worksheet Patient Problems: Problems Problem Status Onset Diverticulitis large intestine Acute Osteoarthritis of knee Chronic
[2017-02-02] MEDS: HYDROmorphONE/DILAUDID 6 MG/30 ML PCA IV PRN ×2 (09:26→19:56)
--- NOTE | 2017-02-02 10:38 | SOAPPROG ---
SOAP Progress Note Assessment/Plan: Assessment/Plan: 61 Y F s/p challenging laparoscopic assisted colostomy takedown with laparotomy and partial colectomy, POD#1. Hypotensive overnight. Responsive to fluids. H&H ok. Uop acceptable. Epidural turned down and now removed per anesthesia. -start PLASTICS FITTER, toradol. -clear liquid diet. -continue ALEXEI drain and bernadine drain. -torres out tomorrow if I and O's ok, BP ok, pt mobile. -continue to monitor. S: pain very well controlled overnight, less so this am. passing gas. no n/v. O: alert, nad mmm chest clear anteriorly, no wob rrr abd +BS, wounds well dressed. 02/02/17 10:33 Objective: Vital Signs Temp Pulse Resp BP Pulse Ox 37.5 C 83 14 96/54 L 95 02/02/17 10:00 02/02/17 10:00 02/02/17 10:00 02/02/17 10:00 02/02/17 10:00 Laboratory Results 02/02/17 05:30 02/02/17 05:30 02/01/17 02/02/17 02/03/17 05:59 05:59 05:59 Intake Total 3000 Output Total 1125 Balance 1875 ICD10 Worksheet Patient Problems: Problems Problem Status Onset Diverticulitis large intestine Acute Osteoarthritis of knee Chronic
--- NOTE | 2017-02-02 11:22 | ASMTCASEMG ---
Living Arrangements What is your living Answers: With Spouse arrangement? Who do you live with? Type Of Residence What kind of residence do Answers: House you live in? Discharge Plan Comments Coordination Status Comments Notes: Patient is a 61yo female who was admitted for laparoscopic assisted colostomy takedown with partial descending colectomy. No therapies ordered at this time. Patient will likely d/c independently. CM available should d/c needs arise. Date Signed: 02/02/2017 11:21 AM Electronically Signed By:Elizabeth Romero LCSW
[2017-02-02] MEDS: LISINOPRIL 20 MG TAB PO SCH (11:27)
[2017-02-02] MEDS: REGARDING ANTICOAG MISC SCH (11:28)
[2017-02-02] MEDS: DC NARCS MISC SCH (11:28)
[2017-02-02] MEDS: KETOROLAC 15 MG/1 ML SDV IVP SCH ×3 (12:44→23:03)
[2017-02-02] MEDS: ASPIRIN EC 81 MG TAB PO SCH (13:15)
[2017-02-03] MEDS: KETOROLAC 15 MG/1 ML SDV IVP SCH ×4 (05:26→23:05)
[2017-02-03 06:20] LABS: % IMMATURE GRANULYOCYTES 0.6 % (0.0-1.1); ABSOLUTE IMMATURE GRANULOCYTES 0.11 10^3/uL (0.00-0.10); ADD DIFF? NO; ADD MORPH? NO; ADD SCAN? NO; ATYPICAL LYMPHOCYTE FLAG 0 (0-99); FRAGMENT RBC FLAG 0 (0-99); HEMATOCRIT 30.7 % (38.0-47.0); HEMOGLOBIN 9.6 g/dL (12.6-16.3); LEFT SHIFT FLG 40 (0-99); LIPEMIA HEMOLYSIS FLAG 80 (0-99); MEAN CELL HEMOGLOBIN 30.7 pg (27.9-34.1); MEAN CELL HEMOGLOBIN CONCENTR. 31.3 g/dL (32.4-36.7); MEAN CELL VOLUME 98.1 fL (81.5-99.8); MEAN PLATELET VOLUME 9.5 fL (8.7-11.7); PLATELET CLUMPS FLAG 0 (0-99); PLATELET COUNT 252 10^3/uL (150-400); RED BLOOD CELL COUNT 3.13 10^6/uL (4.18-5.33); RED CELL DISTRIBUTION WIDTH 13.7 % (11.5-15.2)
[2017-02-03 06:29] LABS: INR 1.44 (0.83-1.16); PROTIME(PATIENT) 17.7 SEC (12.0-15.0)
[2017-02-03 06:30] LABS: APTT 32.7 SEC (23.0-38.0)
[2017-02-03 06:44] LABS: ANION GAP 9 mEq/L (8-16); CALCIUM 8.4 mg/dL (8.5-10.4); CARBON DIOXIDE 23 mEq/l (22-31); CHLORIDE 108 mEq/L (97-110); CREATININE 0.7 mg/dL (0.6-1.0); GLOMERULAR FILTRATION RATE > 60; GLUCOSE 93 mg/dL (70-100); POTASSIUM 4.3 mEq/L (3.5-5.2); SODIUM 140 mEq/L (134-144)
[2017-02-03] MEDS ORDERED: PHYTONADIONE 10 MG in NS 50 ML IV ONE (07:45)
[2017-02-03] MEDS: ASPIRIN EC 81 MG TAB PO SCH (08:10)
[2017-02-03] MEDS: REGARDING ANTICOAG MISC SCH (08:14)
[2017-02-03] MEDS: LISINOPRIL 20 MG TAB PO SCH (08:14)
[2017-02-03] MEDS: DC NARCS MISC SCH (08:14)
[2017-02-03] MEDS ORDERED: ENOXAPARIN 40 MG/0.4 ML SYR SC SCH (09:00)
[2017-02-03] MEDS: ENOXAPARIN 40 MG/0.4 ML SYR SC SCH (09:37)
--- NOTE | 2017-02-03 09:45 | SOAPPROG ---
SOAP Progress Note Assessment/Plan: Assessment: 61yo female s/p colostomy takedown feel better today, passing gas, pain controlled but still using MANAGER CASH PE in chair comfortable abdomen distended, soft to palpation Plan: saw pt with Dr Anguiano, will advance to light diet 02/03/17 09:44 Objective: Vital Signs Temp Pulse Resp BP Pulse Ox 37.1 C 79 16 100/56 L 97 02/03/17 07:32 02/03/17 07:32 02/03/17 07:32 02/03/17 07:32 02/03/17 07:32 Laboratory Results 02/03/17 05:45 02/03/17 05:45 02/02/17 02/03/17 02/04/17 05:59 05:59 05:59 Intake Total 3000 5676 Output Total 1125 590 Balance 1875 5086 PT 17.7 SEC (12.0-15.0) H 02/03/17 05:45 INR 1.44 (0.83-1.16) H 02/03/17 05:45 ICD10 Worksheet Patient Problems: Problems Problem Status Onset Diverticulitis large intestine Acute Osteoarthritis of knee Chronic
[2017-02-03] MEDS: NS W/ 20 KCl/L 1,000 ML IV SCH (13:20)
[2017-02-03] MEDS: ACETAMINOPHEN 325 MG TAB PO PRN (19:12)
[2017-02-04] MEDS: ACETAMINOPHEN 325 MG TAB PO PRN ×3 (03:56→18:30)
[2017-02-04] MEDS: KETOROLAC 15 MG/1 ML SDV IVP SCH ×3 (06:14→18:05)
--- NOTE | 2017-02-04 07:38 | SOAPPROG ---
SOAP Progress Note Assessment/Plan: Assessment: TEMP DOWN/ WOUND OK/ AFEBRILE NOW/ HCT 30/ CXR ATELECTASIS/ FOOT XRAY NEGATIVE Plan:ADVANCE DIET 02/04/17 07:37 Objective: Vital Signs Temp Pulse Resp BP Pulse Ox 36.9 C 94 24 H 164/105 H 92 02/04/17 06:00 02/04/17 06:00 02/04/17 06:00 02/04/17 06:00 02/04/17 06:00 Laboratory Results 02/03/17 05:45 02/03/17 05:45 02/03/17 02/04/17 02/05/17 05:59 05:59 05:59 Intake Total 5676 1668 Output Total 590 430 20 Balance 5086 1238 -20 PT 17.7 SEC (12.0-15.0) H 02/03/17 05:45 INR 1.44 (0.83-1.16) H 02/03/17 05:45 ICD10 Worksheet Patient Problems: Problems Problem Status Onset Diverticulitis large intestine Acute Osteoarthritis of knee Chronic
[2017-02-04] MEDS: LISINOPRIL 20 MG TAB PO SCH (08:47)
[2017-02-04] MEDS: ENOXAPARIN 40 MG/0.4 ML SYR SC SCH (08:48)
[2017-02-04] MEDS: ASPIRIN EC 81 MG TAB PO SCH (08:48)
[2017-02-04] MEDS: REGARDING ANTICOAG MISC SCH (10:04)
[2017-02-04] MEDS: DC NARCS MISC SCH (10:04)
[2017-02-04] MEDS: OXYCODONE/APAP 5/325 TAB PO PRN ×2 (10:49→22:22)
[2017-02-04] MEDS: NS W/ 20 KCl/L 1,000 ML IV SCH (10:51)
--- NOTE | 2017-02-04 16:42 | ASMTCMCOM ---
CM Note CM Note Notes: Plan remains the same, pt will dc home when medically stable CM available for any changes. Date Signed: 02/04/2017 04:42 PM Electronically Signed By:Tayler Caballero RN
[2017-02-05] MEDS: KETOROLAC 15 MG/1 ML SDV IVP SCH ×4 (00:43→18:09)
[2017-02-05] MEDS: ACETAMINOPHEN 325 MG TAB PO PRN (06:13)
[2017-02-05 09:13] LABS: % IMMATURE GRANULYOCYTES 0.4 % (0.0-1.1); ABSOLUTE IMMATURE GRANULOCYTES 0.04 10^3/uL (0.00-0.10); ADD DIFF? NO; ADD MORPH? NO; ADD SCAN? NO; ATYPICAL LYMPHOCYTE FLAG 0 (0-99); FRAGMENT RBC FLAG 0 (0-99); HEMATOCRIT 27.9 % (38.0-47.0); HEMOGLOBIN 9.4 g/dL (12.6-16.3); LEFT SHIFT FLG 10 (0-99); LIPEMIA HEMOLYSIS FLAG 80 (0-99); MEAN CELL HEMOGLOBIN 31.1 pg (27.9-34.1); MEAN CELL HEMOGLOBIN CONCENTR. 33.7 g/dL (32.4-36.7); MEAN CELL VOLUME 92.4 fL (81.5-99.8); MEAN PLATELET VOLUME 9.1 fL (8.7-11.7); PLATELET CLUMPS FLAG 0 (0-99); PLATELET COUNT 343 10^3/uL (150-400); RED BLOOD CELL COUNT 3.02 10^6/uL (4.18-5.33); RED CELL DISTRIBUTION WIDTH 13.5 % (11.5-15.2)
[2017-02-05] MEDS: LISINOPRIL 20 MG TAB PO SCH (10:07)
[2017-02-05] MEDS: ENOXAPARIN 40 MG/0.4 ML SYR SC SCH (10:08)
[2017-02-05] MEDS: ASPIRIN EC 81 MG TAB PO SCH (10:08)
[2017-02-05] MEDS: REGARDING ANTICOAG MISC SCH (10:14)
[2017-02-05] MEDS: DC NARCS MISC SCH (10:14)
[2017-02-05] MEDS ORDERED: POLYETHYLENE GLYCOL 3350 17 GM PKT PO ONE (10:45)
--- NOTE | 2017-02-05 12:01 | SOAPPROG ---
SOAP Progress Note Assessment/Plan: Assessment: TEMP DOWN/ WOUND OK/ AFEBRILE NOW/ HCT 30/ CXR ATELECTASIS/ FOOT XRAY NEGATIVE Plan:ADVANCE DIET 02/04/17 07:37 02/05/17 12:00 MUCH IMPROVED/AFEBRILE/WOUND OKAY/MINIMAL ALEXEI DRAINAGE/POSITIVE FLATUS BUT NEGATIVE BM PLAN IS HOME SOON WHEN EATING BETTER Objective: Vital Signs Temp Pulse Resp BP Pulse Ox 37.1 C 92 16 165/97 H 93 02/05/17 11:58 02/05/17 11:58 02/05/17 11:58 02/05/17 11:58 02/05/17 11:58 Laboratory Results 02/05/17 09:06 02/03/17 05:45 02/04/17 02/05/17 02/06/17 05:59 05:59 05:59 Intake Total 1668 1030 Output Total 430 670 715 Balance 1238 360 -715 PT 17.7 SEC (12.0-15.0) H 02/03/17 05:45 INR 1.44 (0.83-1.16) H 02/03/17 05:45 ICD10 Worksheet Patient Problems: Problems Problem Status Onset Diverticulitis large intestine Acute Osteoarthritis of knee Chronic
[2017-02-05] MEDS: OXYCODONE/APAP 5/325 TAB PO PRN (15:20)
[2017-02-05 17:50] LABS: COLOR YELLOW; LEUKOCYTE ESTERASE,URINE NEGATIVE (NEGATIVE); NITRITE,URINE NEGATIVE (NEGATIVE)
[2017-02-06] MEDS: KETOROLAC 15 MG/1 ML SDV IVP SCH ×3 (00:28→12:10)
[2017-02-06 07:39] VITALS: RESP 16
[2017-02-06] MEDS: LISINOPRIL 20 MG TAB PO SCH (07:49)
[2017-02-06] MEDS: ENOXAPARIN 40 MG/0.4 ML SYR SC SCH (07:49)
[2017-02-06] MEDS: ACETAMINOPHEN 325 MG TAB PO PRN (07:49)
[2017-02-06] MEDS: ASPIRIN EC 81 MG TAB PO SCH (07:49)
[2017-02-06 15:39] VITALS: BP 158/91; PULSE 95; TEMP 99.3; O2SAT 98
--- NOTE | 2017-02-06 16:08 | SOAPPROG ---
SOAP Progress Note Assessment/Plan: Assessment: TEMP DOWN/ WOUND OK/ AFEBRILE NOW/ HCT 30/ CXR ATELECTASIS/ FOOT XRAY NEGATIVE Plan:ADVANCE DIET 02/04/17 07:37 02/05/17 12:00 MUCH IMPROVED/AFEBRILE/WOUND OKAY/MINIMAL ALEXEI DRAINAGE/POSITIVE FLATUS BUT NEGATIVE BM PLAN IS HOME SOON WHEN EATING BETTER 02/06/17 16:07 WOUND OKAY/AFEBRILE/POSITIVE BOWEL MOVEMENT/EATING ADEQUATELY/ PLAN HOME TODAY Objective: Vital Signs Temp Pulse Resp BP Pulse Ox 37.4 C 95 16 158/91 H 98 02/06/17 15:37 02/06/17 15:37 02/06/17 15:37 02/06/17 15:37 02/06/17 15:37 Laboratory Results 02/05/17 09:06 02/03/17 05:45 02/05/17 02/06/17 02/07/17 05:59 05:59 05:59 Intake Total 1030 750 Output Total 670 1270 Balance 360 -520 PT 17.7 SEC (12.0-15.0) H 02/03/17 05:45 INR 1.44 (0.83-1.16) H 02/03/17 05:45 ICD10 Worksheet Patient Problems: Problems Problem Status Onset Diverticulitis large intestine Acute Osteoarthritis of knee Chronic
--- NOTE | 2017-02-07 11:42 | ASDISCHSUM ---
Discharge Information Plan Status:Home with No Needs Medically Cleared to Leave: Discharge Date:02/06/2017 05:16 PM CM D/C Disposition:Home, Routine, Self-Care ADT D/C Disposition:Home, Routine, Self-Care Projected Discharge Date:02/06/2017 05:16 PM Transportation at D/C:Family Discharge Delay Reason: Follow-Up Date:02/06/2017 05:16 PM Discharge Slot: Final Diagnosis: Placement Information Patient Contact Information Contact Name:PATTY Relationship: Address:[address] City:[place] Alternate Phone: State/Zip Code:[place] [address] Email: Financial Information Financial Class:HMO and PPO Plans Primary Plan Desc:HMO [place] [employer] Primary Plan Number:[id number] Secondary Plan Desc: Secondary Plan Number: Assessment Information [facility] Initial CM Assessment Living Arrangements What is your living Answers: With Spouse arrangement? Who do you live with? Type Of Residence What kind of residence do Answers: House you live in? Discharge Plan Comments Coordination Status Comments Notes: Patient is a 61yo female who was admitted for laparoscopic assisted colostomy takedown with partial descending colectomy. No therapies ordered at this time. Patient will likely d/c independently. CM available should d/c needs arise. Date Signed: 02/02/2017 11:21 AM Electronically Signed By:Elizabeth Romero LCSW [facility] CM Progress Note CM Note CM Note Notes: Plan remains the same, pt will dc home when medically stable CM available for any changes. Date Signed: 02/04/2017 04:42 PM Electronically Signed By:Tayler Caballero RN Intervention Information Intervention Type:*Incorrect Registration Date of Service:02/02/2017 09:29 AM Patient Type:Inpatient Staff Member:LOS Yarbrough, Sofia Hours: Discipline: Severity: Comment:
--- NOTE | 2017-02-12 19:25 | GHP ---
[f rep st] HISTORY AND PHYSICAL DATE OF ADMISSION: 02/12/2017 CHIEF COMPLAINT: Infected midline wound with intraabdominal abscess. HISTORY OF PRESENT ILLNESS: The patient is a very pleasant 61-year-old woman who presented to the em ergency room today complaining of worsening drainage from her abdominal wound and surrounding skin re dness. She denied fevers or chills. She denied nausea or vomiting. She denied abdominal pain. She reports normal bowel function including no constipation or diarrhea. She is passing gas. She last ate at 8 o'clock this morning. She reports that at her last followup appointment with Dr. Anguiano she was having a small amount of fluid draining from her midline incision; however, there was no skin red ness. The redness began over the last 24 hours and has increased significantly. The skin is tender to palpation. Most significantly, she had perforated diverticulitis in October 2016, for which she un derwent an exploratory laparotomy with sigmoidectomy and end colostomy, splenic flexure takedown, and lysis of adhesions. She then underwent colostomy reversal on January 01, 2017, with an uncomplicate d recovery. PAST MEDICAL HISTORY: Recent perforated diverticulitis, hypertension, osteoarthritis. PAST SURGICAL HISTORY: Multiple abdominal surgeries, as mentioned above; Achilles tendon repair; lum mini bar attendant surgery; carpal tunnel release; ; cholecystectomy; total knee replacement; tubal li gation; wisdom teeth extraction. FAMILY HISTORY: Significant for breast cancer, coronary artery disease, hypertension, and rheumatoid arthritis. 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 [place] She denies to bacco, alcohol, or recreational drug use. REVIEW OF SYSTEMS: A 10-point review of systems is negative aside from the HPI. PHYSICAL EXAMINATION: GENERAL: Well-developed, well-nourished woman, obese, in no acute distress. Nontoxic appearing. HEENT: Normocephalic, atraumatic. No hearing deficits. Pupils equal and round . No scleral icterus. Mucous membranes moist. NECK: Trachea midline. RESPIRATORY: Clear to ausc ultation bilaterally. No increased work of breathing. CARDIOVASCULAR: Regular rate and rhythm. AB DOMEN: Obese, soft, nondistended. Tender right lower quadrant. The midline abdominal wound has karol rounding erythema. There is foul-smelling cloudy serosanguineous drainage coming from the inferior a spect of the incision. PSYCH: Mood and affect normal. Very pleasant. NEURO: Grossly intact. MUSCU LOSKELETAL: Normal gait. Ambulates independently. RESULTS REVIEWED: In the emergency room, her white blood cell count was approximately 17,000, hemogl obin 8.6, and hematocrit 25.8. Her potassium is low at 3.2. Conjugated bilirubin slightly elevated at 0.6, and ALT 63, alkaline phosphatase 228. UA is negative. She had a CT abdomen performed which reveals a 12 x 3 cm intraabdominal abscess in the left lower quadrant. In addition she has midline w ound dehiscence with a large abscess beneath the skin. The fascia appears intact. IMPRESSION AND PLAN: A 61-year-old woman with infected midline wound dehiscence and an intraabdomina l abscess, status post colostomy takedown. She will be seen by Dr. Anguiano in the emergency room, who will perform incision and drainage of this subcutaneous fluid collection. She may ultimately require wound VAC placement for wound healing. I have also asked that IR do a percutaneous abscess drainage of the left lower quadrant abscess. She will be admitted for observations and IV antibiotics. We w ill recheck labs tomorrow. A culture will be sent from the I and D and wound care consult placed. /[id number]/MODL
--- NOTE | 2017-03-01 12:18 | GOP ---
[f rep st] OPERATIVE REPORT DATE OF OPERATION: 02/01/2017 SURGEON: Domo Anguiano MD DISH MACHINE OPERATOR: KRISTY Edwards. ANESTHESIOLOGIST: Marilyn Reddy MD. PREOPERATIVE DIAGNOSIS: Colostomy status with a history of perforated diverticulitis. POSTOPERATIVE DIAGNOSIS: Colostomy status with a history of perforated diverticulitis. PROCEDURE PERFORMED: Laparoscopic-assisted colostomy takedown with partial descending colectomy and low anterior anastomosis. FINDINGS: The patient was found to have diffuse adhesions. She had a long rectal stump, which made it difficult to use the EEA from below. DESCRIPTION OF PROCEDURE: The patient was taken to the operating room, where she received satisfacto ry general endotracheal anesthesia by Dr. Reddy. She was placed in the supine position in low stirr ups, prepped and draped in the usual sterile fashion. A left lower quadrant short incision was made. A Veress needle was inserted. Pneumoperitoneum was established. A trocar was introduced. Good vi sualization was obtained. Two other trocars were placed under direct vision in safe places in the ab dominal wall to introduce trocars. Adhesions were then extensively taken down. The pelvis was freed from small bowel adhesions, exposing the rectal stump, which was quite high up out of the abdomen, a lmost to the level of the sacral prominence. The colostomy was dissected free and exposed, and the splenic flexure was then further mobilized with the Harmonic Scalpel around the edge of the splenic flexure from off the spleen and then division of the gastrocolic omentum with the Harmonic Scalpel. The colostomy was then divided with a MICHAEL staple r, and it was brought down to the pelvis. EEA was brought up through the rectum but could not reach the end of the rectal stump. At that point, a short midline abdominal incision was made. The proxim al colon was further mobilized. The transverse colon was brought well down to the pelvis, and then a n end-to-side anastomosis was made in 2-layer fashion with 3-0 silks for the anterior and posterior l nathalia and a running inner layer of 3-0 Vicryl, creating a good 2-fingerbreadth anastomosis. The small bowel was returned to the normal position. The wound was copiously irrigated. The colostomy site t issue had been dissected free from the skin and subcutaneous tissue and removed, sent to Pathology. Colostomy site was closed with 0 Vicryl for the posterior sheath, #1 PDS for the anterior sheath, and skin vivien for the skin. A Preston drain was brought out through 1 corner of the incision. The midline incision was then closed with a running #1 PDS suture and skin vivien for the skin. All wounds were infiltrated with 0.5%Marcaine. There were no complications. Blood loss was less than 1 00 cc. Taken to recovery room in good condition. A Pilo-Leigh drain was brought out from the sub cutaneous tissue in a separate stab incision and secured to the skin with a silk suture. The skin wa s closed with skin vivien. She tolerated procedure well. There were no complications. Blood loss was negligible. Taken to recovery room in good condition. /[id number]/MODL
== END 2017-02-06 17:16 | disposition home or self-care (01) | DRG 345 ==
LOC: F3E 09:12
PROVIDERS: ADMIT Surgery; ATTEND Surgery
DX: Z43.3 Encounter for attention to colostomy (principal); K56.50 Intestinal adhesions [bands], unspecified as to partial versus complete obstruction; K57.32 Diverticulitis of large intestine without perforation or abscess without bleeding; I10 Essential (primary) hypertension; Z87.01 Personal history of pneumonia (recurrent); M17.0 Bilateral primary osteoarthritis of knee; Z53.31 Laparoscopic surgical procedure converted to open procedure
CPT/HCPCS: G0378; J0694; J0697; J1170; J1650; J1885; J2250; J2704; J3010; J3430; P9041

== ENCOUNTER 2017-02-12 06:34 | Inpatient (IN) | payer OTHER ==
--- NOTE | 2017-02-12 06:58 | EDPHY ---
H & P Stated Complaint: surgical site leak from take down of colostomy Time Seen by Provider: 02/12/17 06:41 - Personal History Current Tetanus/Diphtheria Vaccine: Yes Current Tetanus Diphtheria and Acellular Pertussis (TDAP): Yes - Medical/Surgical History Hx Asthma: No Hx Chronic Respiratory Disease: No Hx Diabetes: No Hx Cardiac Disease: No Hx Renal Disease: No Hx Cirrhosis: No Hx Alcoholism: No Hx HIV/AIDS: No Hx Splenectomy or Spleen Trauma: No Other PMH: diverticulitis, colostomy HTN, back fusion, bilateral knee replacements, knee scopes, carpal tunnel - Social History Smoking Status: Never smoked Constitutional: Initial Vital Signs Temperature (C) 36.6 C 02/12/17 06:36 Heart Rate 85 02/12/17 06:36 Respiratory Rate 16 02/12/17 06:36 Blood Pressure 101/61 02/12/17 06:36 O2 Sat (%) 98 02/12/17 06:36 O2 Delivery Mode Room Air Allergies/Adverse Reactions: No Allergies Allergy (Verified 01/31/17 12:34) Home Medications: Medication Instructions Recorded Aspirin EC [Aspirin EC 81 mg (*)] 81 mg PO DAILY 10/25/16 Herbals/Supplements -Info Only 1 ea PO DAILY 10/25/16 Lisinopril [Zestril 20 mg (*)] 20 mg PO DAILY 10/25/16 Meloxicam 15 mg PO DAILY 10/25/16 [place]-3 Fatty Acids [Fish Oil 1000 1,000 mg PO DAILY 10/25/16 mg (*)] amLODIPine BESYLATE [Norvasc 2.5 2.5 mg PO DAILY 10/25/16 mg (*)] Ibuprofen [Motrin (*)] 600 mg PO Q4-6PRN PRN 02/12/17 oxyCODONE/APAP 5/325 [Percocet 1 tab PO Q4H PRN 02/12/17 5/325 (*)] Medical Decision Making - Diagnostics Imaging Results: Imaging Impressions Abdomen CT 02/12/17 07:01 Impression: 1. Interval ostomy takedown. There are features compatible with wound dehiscence with possible 5 cm abscess within the deep inferior aspect of the wound. 2. Focal 12 x 3 cm fluid collection left lower quadrant suspicious for abscess. Associated inflammatory changes within the mesenteric fat of the abdomen and pelvis. 3. Mild bilateral lower lobe atelectasis. 4. Other findings as above. Examination reviewed with Dr. Edmundo Lundberg. Imaging: Discussed imaging studies w/ zinc miner Radiologist, I viewed and interpreted images myself ED Course/Re-evaluation: CHIEF COMPLAINT: Abdomen surgical site drainage HISTORY OF PRESENT ILLNESS: The patient is a 61 y/o female who had a colostomy reversal on 02/01/17, complaining of drainage from the surgical site. Her colostomy for diverticulitis was originally on 11/01/16. Dr. Anguiano, general surgeon, preformed the colostomy tape down 2 weeks ago. Around 04:00, 3 hours ago, she started feeling pressure in her abdomen and noticed some leakage from the staple site. Takes Percocet for pain. Denies chest pain, shortness of breath, paresthesias or other pertinent symptoms. REVIEW OF SYSTEMS: A 10 point review of systems was performed and is negative with the exception of the elements mentioned in the history of present illness. PHYSICAL EXAM: HR, BP, O2 Sat, RR. Temp noted General Appearance: Foul smelling, alert, well hydrated, appropriate, and non- toxic appearing. Head: Atraumatic without scalp tenderness or obvious injury Eyes: Pupils equal, round, reactive to light and accommodation, EOMI, no trauma , no injection. Ears: Clear bilaterally, no perforation, normal landmarks Nose: Atraumatic, no rhinorrhea, clear. Throat: Mucus membranes moist. Neck: Supple, nontender, no lymphadenopathy. Respiratory: No retractions, no distress, no wheezes, and no accessory muscle use. Lungs are clear to auscultation bilaterally. Cardiovascular: Regular rate and rhythm, no murmurs, rubs, or gallops. Good capillary refill all extremities. Gastrointestinal: Abdomen is soft, distended, no masses, no rebound, no guarding, no peritoneal signs. Musculoskeletal: Normal active ROM of all extremities, atraumatic. Neurological: Alert, appropriate, and interactive. Non-focal neuro. Skin: Erythema around transverse abdominal staple line. Serous sanguinous discharge from staple line. No rashes, good turgor, no nodules on palpation. Past medical history: Diverticulitis, hypertension Past surgical history: Colostomy tape down (02/01/17), colostomy (11/01/16), back fusion, bilateral knee replacements Family history: Denies Social history: at bedside, lives in [place], nonsmoker DIAGNOSTICS/PROCEDURES/CRITICAL CARE TIME: Abdominopelvic CT: Wound dehiscence, a substantial amount of inflammation, an intraabdominal abscess, and multiple intraabdominal fluid collections. I spent a total of 30 minutes of critical care time including but not limited to obtaining history, performing a physical exam, ordering interventions and the bedside monitoring of those interventions, collecting and interpreting tests and discussion with consultants but not including time spent performing procedures. DIFFERENTIAL DIAGNOSIS: The differential diagnosis for the patient's abdominal pain and surgical site drainage included but was not limited to intraabdominal abscess, intraabdominal infection, ovarian cyst, pelvic inflammatory disease, ovarian torsion, urinary tract infection, cholecystitis, and appendicitis. MEDICAL DECISION MAKING: The patient is a 61 y/o female, who had a colostomy tape down with Dr. Anguiano, general surgeon, on 02/01/17, presenting with a distended abdomen, foul smelling serous sanguinous discharge from the staple line on her abdomen. There is also erythema around the transverse abdominal staple line. She does not meet sepsis criteria. Labs, urinalysis, and abdominopelvic CT ordered. 1g IV Invanz, 1mg IV Dilaudid, 4mg IV Zofran, 250mL IV Vancomycin, and 1L IV NS administered. 0745: Patient has a high WBC of 16.79 and a low potassium of 2.7; 20meq potassium administered. 0757: Patient has borderline low hemoglobin and hematocrit; she will be typed and crossed. I will not transfuse at this time. She has an elevated alkaline phosphatase of 228. Abdominopelvic CT is pending at this time. 0829: Spoke with Dr. Guzman, radiologist, the abdominopelvic CT reveals wound dehiscence, a substantial amount of inflammation, an intraabdominal abscess, and multiple intraabdominal fluid collections. 0839: Consulted with KRISTY Mackay regarding the patient's symptoms and imaging studies. Dr. Collier, general surgeon, will consult and admit this patient. 0900: Reassessed patient and discussed laboratory and imaging findings. I have also discussed the plan for admission with Dr. Collier; patient and her are comfortable with this plan. 0908: Consulted with KRISTY Mackay, she reports that Dr. Anguiano will now assess this patient. 1130: Consulted with Dr. Anguiano, general surgeon, regarding the patient's visit. - Data Points Laboratory Results: Laboratory Results 02/12/17 07:30 02/12/17 07:30 02/12/17 02/12/17 02/12/17 07:32 07:30 07:30 WBC RBC Hgb POC Hgb 9.2 gm/dL L gm/dL (12.6-16.3) Hct POC Hct 27 % L % (38-47) MCV MCH MCHC RDW Plt Count MPV Neut % (Auto) Lymph % (Auto) [place] % (Auto) Eos % (Auto) Baso % (Auto) Nucleat RBC Rel Count Absolute Neuts (auto) Absolute Lymphs (auto) Absolute Monos (auto) Absolute Eos (auto) Absolute Basos (auto) Absolute Nucleated RBC Immature Gran % Immature Gran # PT INR APTT VBG Lactic Acid 1.3 mmol/L mmol/L (0.7-2.1) POC Sodium 137 mEq/L mEq/L (134-144) Sodium 140 mEq/L mEq/L (134-144) POC Potassium 2.7 mEq/L L* mEq/L (3.3-5.0) Potassium 3.2 mEq/L L mEq/L (3.5-5.2) POC Chloride 96 mEq/L L mEq/L (97-110) Chloride 98 mEq/L mEq/L (97-110) Carbon Dioxide 26 mEq/l mEq/l (22-31) Anion Gap 16 mEq/L mEq/L (8-16) POC BUN 12 mg/dL mg/dL (7-23) BUN 14 mg/dL mg/dL (7-23) Creatinine 0.8 mg/dL mg/dL (0.6-1.0) POC Creatinine 0.9 mg/dL mg/dL (0.6-1.0) Estimated GFR > 60 Glucose 115 mg/dL H mg/dL (70-100) POC Glucose 120 mg/dL H mg/dL (70-100) Calcium 8.9 mg/dL mg/dL (8.5-10.4) Total Bilirubin 0.8 mg/dL mg/dL (0.1-1.4) Conjugated Bilirubin 0.6 mg/dL H mg/dL (0.0-0.5) Unconjugated Bilirubin 0.2 mg/dL mg/dL (0.0-1.1) AST 41 IU/L IU/L (14-46) ALT 63 IU/L H IU/L (9-52) Alkaline Phosphatase 228 IU/L H IU/L (38-126) Total Protein 5.8 g/dL L g/dL (6.3-8.2) Albumin 3.0 g/dL L g/dL (3.5-5.0) Lipase 101 IU/L IU/L (23-300) 02/12/17 02/12/17 07:30 07:30 WBC 16.79 10^3/uL H 10^3/uL (3.80-9.50) RBC 2.84 10^6/uL L 10^6/uL (4.18-5.33) Hgb 8.6 g/dL L g/dL (12.6-16.3) POC Hgb Hct 25.8 % L % (38.0-47.0) POC Hct MCV 90.8 fL fL (81.5-99.8) MCH 30.3 pg pg (27.9-34.1) MCHC 33.3 g/dL g/dL (32.4-36.7) RDW 13.7 % % (11.5-15.2) Plt Count 588 10^3/uL H 10^3/uL (150-400) MPV 8.7 fL fL (8.7-11.7) Neut % (Auto) 81.7 % H % (39.3-74.2) Lymph % (Auto) 7.5 % L % (15.0-45.0) [place] % (Auto) 7.4 % % (4.5-13.0) Eos % (Auto) 1.3 % % (0.6-7.6) Baso % (Auto) 0.3 % % (0.3-1.7) Nucleat RBC Rel Count 0.0 % % (0.0-0.2) Absolute Neuts (auto) 13.71 10^3/uL H 10^3/uL (1.70-6.50) Absolute Lymphs (auto) 1.26 10^3/uL 10^3/uL (1.00-3.00) Absolute Monos (auto) 1.25 10^3/uL H 10^3/uL (0.30-0.80) Absolute Eos (auto) 0.22 10^3/uL 10^3/uL (0.03-0.40) Absolute Basos (auto) 0.05 10^3/uL 10^3/uL (0.02-0.10) Absolute Nucleated RBC 0.00 10^3/uL 10^3/uL (0-0.01) Immature Gran % 1.8 % H % (0.0-1.1) Immature Gran # 0.30 10^3/uL H 10^3/uL (0.00-0.10) PT 14.5 SEC SEC (12.0-15.0) INR 1.11 (0.83-1.16) APTT 33.6 SEC SEC (23.0-38.0) VBG Lactic Acid POC Sodium Sodium POC Potassium Potassium POC Chloride Chloride Carbon Dioxide Anion Gap POC BUN BUN Creatinine POC Creatinine Estimated GFR Glucose POC Glucose Calcium Total Bilirubin Conjugated Bilirubin Unconjugated Bilirubin AST ALT Alkaline Phosphatase Total Protein Albumin Lipase Medications Given: Discontinued Medications Ertapenem (Invanz) 1 gm IVP EDNOW ONE PRN Reason: Protocol Stop: 02/12/17 07:03 Last Admin: 02/12/17 07:45 Dose: 1 gm Hydromorphone HCl (Dilaudid) 1 mg IVP EDNOW ONE Stop: 02/12/17 07:01 Last Admin: 02/12/17 09:01 Dose: 0.5 mg Sodium Chloride (Ns) 1,000 mls @ 0 mls/hr IV EDNOW ONE; Wide Open PRN Reason: Protocol Stop: 02/12/17 07:01 Last Admin: 02/12/17 07:45 Dose: 1,000 mls Vancomycin/Sodium Chloride (Vancomycin 1 Gm (Premix)) 250 mls @ 250 mls/hr IV EDNOW ONE PRN Reason: Protocol Stop: 02/12/17 08:00 Last Admin: 02/12/17 08:31 Dose: 250 mls Ondansetron HCl (Zofran) 4 mg IVP EDNOW ONE Stop: 02/12/17 07:01 Last Admin: 02/12/17 09:01 Dose: 4 mg Point of Care Test Results: 02/12/17 07:32 POC Sodium 137 POC Potassium 2.7 L* POC Chloride 96 L POC BUN 12 POC Creatinine 0.9 POC Glucose 120 H Departure - Departure Disposition: [facility] Acute Clinical Impression: Wound dehiscence, Abscess, Bowel perforation Cellulitis Qualifiers: Site of cellulitis: trunk Site of cellulitis of trunk: abdominal wall Qualified Code(s): L03.311 - Cellulitis of abdominal wall Condition: Fair Report Scribed for: Edmundo Lundberg Report Scribed by: Nubia Willis Date of Report: 02/12/17 Time of Report: 07:13
[2017-02-12] MEDS ORDERED: NS 1,000 ML IV ONE (07:00)
[2017-02-12] MEDS ORDERED: HYDROmorphONE/DILAUDID 1 MG/ML INJ IVP ONE (07:00)
[2017-02-12] MEDS ORDERED: ONDANSETRON 4 MG/2 ML VIAL IVP ONE (07:00)
[2017-02-12] MEDS ORDERED: VANCOMYCIN HCL/NORMAL SALINE 250 ML IV ONE (07:01)
[2017-02-12] MEDS ORDERED: ERTAPENEM 1 GM VIAL IVP ONE (07:02)
[2017-02-12 07:41] LABS: % IMMATURE GRANULYOCYTES 1.8 % (0.0-1.1); ADD DIFF? NO; ADD MORPH? NO; ADD SCAN? NO; ATYPICAL LYMPHOCYTE FLAG 20 (0-99); FRAGMENT RBC FLAG 0 (0-99); HEMATOCRIT 25.8 % (38.0-47.0); HEMOGLOBIN 8.6 g/dL (12.6-16.3); LEFT SHIFT FLG 20 (0-99); LIPEMIA HEMOLYSIS FLAG 80 (0-99); MEAN CELL HEMOGLOBIN 30.3 pg (27.9-34.1); MEAN CELL HEMOGLOBIN CONCENTR. 33.3 g/dL (32.4-36.7); MEAN CELL VOLUME 90.8 fL (81.5-99.8); MEAN PLATELET VOLUME 8.7 fL (8.7-11.7); PLATELET CLUMPS FLAG 20 (0-99); PLATELET COUNT 588 10^3/uL (150-400); RED BLOOD CELL COUNT 2.84 10^6/uL (4.18-5.33); RED CELL DISTRIBUTION WIDTH 13.7 % (11.5-15.2)
[2017-02-12] MEDS ORDERED: IOPAMIDOL (ISOVUE-300) 100 ML BTL ONE (07:43)
[2017-02-12] MEDS ORDERED: POTASSIUM Cl (KCl) 100 ML IV ONE (07:49)
[2017-02-12 07:52] LABS: ALANINE AMINOTRANSFERASE 63 IU/L (9-52); ALKALINE PHOSPHATASE 228 IU/L (38-126); ANION GAP 16 mEq/L (8-16); ASPARTATE AMINOTRANSFERASE 41 IU/L (14-46); BILIRUBIN,TOTAL 0.8 mg/dL (0.1-1.4); BILIRUBIN-CONJUGATED 0.6 mg/dL (0.0-0.5); BILIRUBIN-UNCONJUGATED 0.2 mg/dL (0.0-1.1); CALCIUM 8.9 mg/dL (8.5-10.4); CARBON DIOXIDE 26 mEq/l (22-31); CHLORIDE 98 mEq/L (97-110); CREATININE 0.8 mg/dL (0.6-1.0); GLOMERULAR FILTRATION RATE > 60; GLUCOSE 115 mg/dL (70-100); POTASSIUM 3.2 mEq/L (3.5-5.2); SODIUM 140 mEq/L (134-144); TOTAL PROTEIN 5.8 g/dL (6.3-8.2)
[2017-02-12 09:04] LABS: INR 1.11 (0.83-1.16); PROTIME(PATIENT) 14.5 SEC (12.0-15.0)
[2017-02-12 09:07] LABS: APTT 33.6 SEC (23.0-38.0)
[2017-02-12 10:38] LABS: COLOR YELLOW; LEUKOCYTE ESTERASE,URINE NEGATIVE (NEGATIVE); NITRITE,URINE NEGATIVE (NEGATIVE)
[2017-02-12] MEDS ORDERED: fentaNYL 100 MCG/2 ML INJ ONE ×2 (11:32→16:05)
[2017-02-12] MEDS ORDERED: MIDAZOLAM 2 MG/2 ML VIAL ONE ×2 (11:32→16:05)
[2017-02-12] MEDS ORDERED: fentaNYL 100 MCG/2 ML INJ IVP ONE (11:42)
[2017-02-12] MEDS ORDERED: MIDAZOLAM 2 MG/2 ML VIAL IVP ONE (11:42)
[2017-02-12] MEDS ORDERED: POTASSIUM Cl (KCl) 100 ML IV SCH (12:00)
[2017-02-12] MEDS: POTASSIUM Cl (KCl) 10 MEQ in NS 100 ML IV SCH ×2 (12:14→13:23)
[2017-02-12] MEDS: PIPERACILLIN/TAZO 3.375 GM/DEX 50 ML IV SCH ×2 (13:23→18:44)
[2017-02-12] MEDS ORDERED: ONDANSETRON DISINTEGRATING 4 MG TAB PO PRN (13:36)
[2017-02-12] MEDS ORDERED: ONDANSETRON 4 MG/2 ML VIAL IVP PRN (13:36)
[2017-02-12] MEDS ORDERED: diphenhydrAMINE 25 MG CAP PO PRN (13:36)
[2017-02-12] MEDS ORDERED: HYDROmorphONE/DILAUDID 1 MG/ML INJ IVP PRN (13:37)
--- NOTE | 2017-02-12 13:43 | GOP ---
[f rep st] OPERATIVE REPORT DATE OF OPERATION: 02/12/2017 SURGEON: Domo Anguiano MD PREOPERATIVE DIAGNOSIS: Wound seroma and cellulitis. POSTOPERATIVE DIAGNOSIS: Wound seroma and cellulitis. PROCEDURE PERFORMED: Incision and drainage of an infected wound seroma. FINDINGS: DESCRIPTION OF PROCEDURE: Patient was in the emergency room. She was given some sedation with Verse d and fentanyl, prepped and draped in the usual sterile fashion. Using 1% Xylocaine local infiltrati on, a portion of her old incision was opened, releasing a discolored seroma, fat necrosis type fluid. This was sent for culture. The area was completely evacuated, irrigated out and then packed with s ome Betadine-soaked Kerlix gauze. She tolerated the procedure very well. No complications. No bloo d loss. /[id number]/MODL
[2017-02-12] MEDS ORDERED: DESITIN MAX STRENGTH OINTMENT TP PRN (13:54)
[2017-02-12] MEDS: HYDROmorphone HCL/NS/PF 0.4 MG/2 ML SYR IVP PRN ×2 (13:58→16:40)
--- NOTE | 2017-02-12 15:03 | PDPROPOC ---
Sedation Plan of Care Sedation Plan of Care: vital signs stable, mental status noted, patient educated of risks, benefits, alternatives, patient can tolerate sedation ASA Classification: ASA 3 Planned drugs: fentanyl, midazolam Mallampati Score: Class 4 Mallampati Reference Image: Patient passed 3-3-2 rule?: Yes
[2017-02-12] MEDS ORDERED: NALOXONE HCL 0.4 MG/ML INJ ONE (16:04)
[2017-02-12] MEDS ORDERED: FLUMAZENIL 0.5 MG/5 ML MDV IVP ONE (16:05)
[2017-02-12] MEDS ORDERED: MEPERIDINE 25 MG/ML SYR IVP PRN (17:49)
[2017-02-12] MEDS ORDERED: HEPARIN 10,000 UNIT/10 ML MDV IVP PRN (17:49)
[2017-02-12] MEDS ORDERED: PROTAMINE SULFATE 50 MG/5 ML VIAL IVP PRN (17:49)
[2017-02-12] MEDS ORDERED: ALTEPLASE 2 MG VIAL IVP PRN (17:49)
[2017-02-12] MEDS ORDERED: FLUMAZENIL 0.5 MG/5 ML MDV IVP PRN (17:49)
[2017-02-12] MEDS ORDERED: NALOXONE HCL 0.4 MG/ML INJ IVP PRN (17:49)
[2017-02-12] MEDS ORDERED: MIDAZOLAM 2 MG/2 ML VIAL IVP PRN (17:49)
[2017-02-12] MEDS ORDERED: fentaNYL 100 MCG/2 ML INJ IVP PRN (17:49)
[2017-02-12] MEDS ORDERED: GLUCAGON HCL 1 MG VIAL IVP PRN (17:49)
[2017-02-12] MEDS ORDERED: NS 1,000 ML IV SCH (18:00)
[2017-02-12] MEDS: HYDROCODONE/APAP 5/325 TAB PO PRN ×2 (18:18→22:08)
--- NOTE | 2017-02-12 18:52 | PDRADPN ---
Radiology Procedure Note Date of Procedure: 02/12/17 Radiologist: Domo Zamora Anesthesia: IV Sedation Pre-op Diagnosis: LLQ fluid collection Post-op Diagnosis: Abscess Indication: Pain, elevated WBC count, 10 days post-op Procedure: CT guided abscess drainage Finding(s): 107 ml reddish brown fluid evacuated. Inf/Abcess present in the surg proc area at time of surgery?: Yes Depth: Organ Space EBL: Minimal Complications: 0 Drains: Other (10F multisidehole pigtail drain) Specimen(s): 22 ml fluid sent to lab for microbiology.
--- NOTE | 2017-02-12 19:07 | SOAPPROG ---
SOAP Progress Note Assessment/Plan: Assessment: I evaluated patient after I&D with Dr. Anguiano, prior to IR procedure. She is already feeling slightly better. She complains of irritated hemorrhoids. On brief external rectal exam, no evidence of active thrombosed external hemorrhoids or bleeding. The surrounding skin appeared very irritated from increased moisture. Recommend barrier cream such as desitin Plan: 02/12/17 19:05 Objective: Vital Signs Temp Pulse Resp BP Pulse Ox 37.5 C 86 18 109/60 99 02/12/17 16:39 02/12/17 16:39 02/12/17 16:39 02/12/17 17:49 02/12/17 17:49 02/11/17 02/12/17 02/13/17 05:59 05:59 05:59 Intake Total 1850 Output Total 137 Balance 1713 PT 14.5 SEC (12.0-15.0) 02/12/17 07:30 INR 1.11 (0.83-1.16) 02/12/17 07:30 ICD10 Worksheet Patient Problems: Problems Problem Status Onset Abscess Acute Bowel perforation Acute Cellulitis Acute Wound dehiscence Acute Diverticulitis large intestine Acute Osteoarthritis of knee Chronic
[2017-02-13] MEDS: PIPERACILLIN/TAZO 3.375 GM/DEX 50 ML IV SCH ×5 (05:44→23:12)
[2017-02-13] MEDS: HYDROCODONE/APAP 5/325 TAB PO PRN ×5 (05:44→23:12)
[2017-02-13 05:46] LABS: % IMMATURE GRANULYOCYTES 1.5 % (0.0-1.1); ABSOLUTE IMMATURE GRANULOCYTES 0.15 10^3/uL (0.00-0.10); ADD DIFF? NO; ADD MORPH? NO; ADD SCAN? NO; ATYPICAL LYMPHOCYTE FLAG 80 (0-99); FRAGMENT RBC FLAG 0 (0-99); HEMATOCRIT 25.4 % (38.0-47.0); HEMOGLOBIN 8.2 g/dL (12.6-16.3); LEFT SHIFT FLG 10 (0-99); LIPEMIA HEMOLYSIS FLAG 80 (0-99); MEAN CELL HEMOGLOBIN 30.4 pg (27.9-34.1); MEAN CELL HEMOGLOBIN CONCENTR. 32.3 g/dL (32.4-36.7); MEAN CELL VOLUME 94.1 fL (81.5-99.8); MEAN PLATELET VOLUME 8.5 fL (8.7-11.7); PLATELET CLUMPS FLAG 0 (0-99); PLATELET COUNT 553 10^3/uL (150-400)
[2017-02-13 05:57] LABS: ALANINE AMINOTRANSFERASE 63 IU/L (9-52); ALBUMIN 2.5 g/dL (3.5-5.0); ALKALINE PHOSPHATASE 203 IU/L (38-126); ANION GAP 8 mEq/L (8-16); ASPARTATE AMINOTRANSFERASE 42 IU/L (14-46); BILIRUBIN,TOTAL 0.6 mg/dL (0.1-1.4); CALCIUM 8.4 mg/dL (8.5-10.4); CARBON DIOXIDE 31 mEq/l (22-31); CHLORIDE 103 mEq/L (97-110); CREATININE 0.7 mg/dL (0.6-1.0); GLOMERULAR FILTRATION RATE > 60; GLUCOSE 88 mg/dL (70-100); POTASSIUM 3.5 mEq/L (3.5-5.2); SODIUM 142 mEq/L (134-144); TOTAL PROTEIN 5.1 g/dL (6.3-8.2)
[2017-02-13] MEDS: ASPIRIN EC 81 MG TAB PO SCH (09:23)
[2017-02-13] MEDS: LISINOPRIL 20 MG TAB PO SCH (09:23)
--- NOTE | 2017-02-13 17:37 | SOAPPROG ---
SOAP Progress Note Assessment/Plan: Assessment: 61yo F admitted with infected seroma of midline wound and intraabd fluid collection, sp I&D of midline wound and IR placement of perc drain Cultures pending Pain significantly improved today, clinically feels much better IV antibiotics Packing change daily Regular diet Normal bowel function Dispo: may be able to go in the next few days with wound care, antibiotics and ALEXEI drain with close outpatient follow-up S: Feels much better today compared to admission. No pain. No nausea. No fevers or chills. O: Sitting upright in chair, comfortable, no acute distress, nontoxic-appearing , accompanied by No increased work of breathing Positive bowel sounds throughout, soft, nondistended, nontender. Left lower quadrant ALEXEI drain with cloudy serosanguineous fluid. Midline wound packing changed. Very large subcutaneous cavity repacked with plain gauze and dressed with ABD. Remainder of vivien remain intact. Surrounding erythema almost completely resolved. Objective: Vital Signs Temp Pulse Resp BP Pulse Ox 36.8 C 70 14 91/49 L 97 02/13/17 15:26 02/13/17 15:26 02/13/17 15:26 02/13/17 15:26 02/13/17 15:26 Microbiology 02/12/17 17:40 Gram Stain - Final Other - Syringe 02/12/17 11:45 Gram Stain - Final Abdomen - Swab Laboratory Results 02/13/17 05:32 02/13/17 05:32 02/12/17 02/13/17 02/14/17 05:59 05:59 05:59 Intake Total 2250 Output Total 197 80 Balance 3 -80 PT 14.5 SEC (12.0-15.0) 02/12/17 07:30 INR 1.11 (0.83-1.16) 02/12/17 07:30 ICD10 Worksheet Patient Problems: Problems Problem Status Onset Abscess Acute Bowel perforation Acute Cellulitis Acute Wound dehiscence Acute Diverticulitis large intestine Acute Osteoarthritis of knee Chronic
[2017-02-14] MEDS: PIPERACILLIN/TAZO 3.375 GM/DEX 50 ML IV SCH ×4 (05:06→23:06)
[2017-02-14] MEDS: HYDROCODONE/APAP 5/325 TAB PO PRN ×4 (08:27→21:55)
[2017-02-14] MEDS: LISINOPRIL 20 MG TAB PO SCH (08:27)
[2017-02-14] MEDS: ASPIRIN EC 81 MG TAB PO SCH (08:27)
[2017-02-14] MEDS ORDERED: LIDO/EPI 1% **Not for Epidural 20 ML MDV NB ONE (10:07)
[2017-02-14] MEDS: HYDROmorphone HCL/NS/PF 0.4 MG/2 ML SYR IVP PRN (13:54)
--- NOTE | 2017-02-14 15:01 | WOCRNPDOC ---
WOCRN Advanced Assessment Note - Skin Integrity Problem, Advanced Assess Abdomen Surgical Wound/Incision Dressing Type: Gauze Dressing Description: Intact, Shadowed Exudate Amount: Moderate Exudate Characteristic(s): Bloody Integumentary Issue Intervention: Dressing Changed Tammy Wound Swelling: Mild Wound Bed Color: [place], Red, Yellow Wound Bed Constitution: Smooth Tissue, Red/[place] - Non Granular Tissue, Tunneling , Undermining Wound Edges: Attached Site Measurement - Head-to-Toe Length X Width X Depth (cm): 4.2x2.5x3.4 ( superior), 5x2.5x8 (inferior) and they are connected. The total wound length running from 12-6 oclock is 17.5 cm Skin Integrity Problem Comment: Dehisced midline incision with intact fascia. Largest area of wound is the inferior portion which has a cavity approximately the size of a lemon/small orange. This connects to the upper wound, however it is a narrow connection and foam cannot be passed through the area. The tammy wounds skin was draped and black veraflo spiral foam was placed into superior wound. A Second longer spiral was placed into inferior cavity. Each was covered by a foam trac landing pad piece of foam. The veraflo tubing was placed in the superior wound and microcyn solution was instilled there as it would likely flow into the inferior wound. Vac was set to -125 mm Hg continuous suction and the trac pads were Y connected to vac machine. Settings were for 24 ml of microcyn solution to be instilled every 3.5 hours with a 5 min dwell time. Extensive education done with patient and her about plan of care, vac, dressing and all aspects of the wound. Martha Moreno Rn and Balbina MIN were in room for the care and assisted. Vac working without leaks and properly at end of vac change.
--- NOTE | 2017-02-14 15:23 | ASMTCASEMG ---
Living Arrangements What is your living Answers: With Spouse arrangement? Who do you live with? Type Of Residence What kind of residence do Answers: House you live in? Discharge Plan Comments Coordination Status Comments Notes: Pt is a 61 y/o female admitted for a bowel perf, wound dihiscence and skin infection. Therapies have been ordered and pt has been cleared to d/c home independent. Pt will need a wound vac at time of d/c. CM made referral to [facility]. CM spoke w/ EMPERATRIZ Freeman regarding d/c POC. Anticipates that pt will d/c on . Pt will need a RN to follow. CM met w/ pt for dispo planning. Pt reports that she had [facility] in the past and reports that she would like to use them again. CM made referral to [facility] and they are able to accept. CM to follow. Plan: [facility], RN with wound vac Date Signed: 02/14/2017 03:23 PM Electronically Signed By:LEEANN Roberson
--- NOTE | 2017-02-14 21:23 | SOAPPROG ---
SOAP Progress Note Assessment/Plan: Assessment: afebrile/ moderate kevon drainage/ alert, vs ok Plan:home soon with vac 02/14/17 21:22 Objective: Vital Signs Temp Pulse Resp BP Pulse Ox 36.6 C 84 18 146/93 H 96 02/14/17 15:23 02/14/17 15:23 02/14/17 15:23 02/14/17 15:23 02/14/17 15:23 Microbiology 02/12/17 17:40 Gram Stain - Final Other - Syringe 02/12/17 11:45 Gram Stain - Final Abdomen - Swab Laboratory Results 02/13/17 05:32 02/13/17 05:32 02/13/17 02/14/17 02/15/17 05:59 05:59 05:59 Intake Total 2250 1400 Output Total 197 160 Balance 2053 1240 PT 14.5 SEC (12.0-15.0) 02/12/17 07:30 INR 1.11 (0.83-1.16) 02/12/17 07:30 ICD10 Worksheet Patient Problems: Problems Problem Status Onset Abscess Acute Bowel perforation Acute Cellulitis Acute Wound dehiscence Acute Diverticulitis large intestine Acute Osteoarthritis of knee Chronic
[2017-02-15] MEDS: PIPERACILLIN/TAZO 3.375 GM/DEX 50 ML IV SCH ×3 (06:12→17:42)
[2017-02-15] MEDS: HYDROCODONE/APAP 5/325 TAB PO PRN ×4 (07:19→21:29)
[2017-02-15] MEDS: LISINOPRIL 20 MG TAB PO SCH (08:12)
[2017-02-15] MEDS: ASPIRIN EC 81 MG TAB PO SCH (08:12)
--- NOTE | 2017-02-15 11:03 | SOAPPROG ---
SOAP Progress Note Assessment/Plan: Assessment/Plan: 61 Y F s/p colostomy take down, initially placed for perforated diverticulitis, now s/p I&D of midline abdominal wound infected seroma and IR pelvic drain placement. Vac with veraflo placed yesterday. Continue ALEXEI drain--still not clear, very brown and opaque. Continue IV abx c zosyn. Cultures growing enterococcus faecalis and widely sensitive e coli. Consider ID consult. Plan for vac change on Tuesday. Seen with Dr. Anguiano. Dispo pending. Possibly after vac change on Tuesday, but more likely later in the week. S: doesn't sleep well in the hospital. wants to go home but wants to be safe and follow our recommendations. +BMs. O: alert, nad ctab rrr abd soft, +BS vac to suction ALEXEI drain medium brown and opaque, not grossly feculent 02/15/17 11:00 Objective: Vital Signs Temp Pulse Resp BP Pulse Ox 36.8 C 80 16 148/89 H 96 02/15/17 08:00 02/15/17 08:00 02/15/17 08:00 02/15/17 08:15 02/15/17 08:00 Microbiology 02/12/17 11:45 Gram Stain - Final Abdomen - Swab 02/12/17 17:40 Gram Stain - Final Other - Syringe Laboratory Results 02/13/17 05:32 02/13/17 05:32 02/14/17 02/15/17 02/16/17 05:59 05:59 05:59 Intake Total 1400 Output Total 160 40 Balance 1240 -40 PT 14.5 SEC (12.0-15.0) 02/12/17 07:30 INR 1.11 (0.83-1.16) 02/12/17 07:30 ICD10 Worksheet Patient Problems: Problems Problem Status Onset Abscess Acute Bowel perforation Acute Cellulitis Acute Wound dehiscence Acute Diverticulitis large intestine Acute Osteoarthritis of knee Chronic
--- NOTE | 2017-02-15 14:02 | ASMTCMCOM ---
CM Note CM Note Notes: [facility] wound vac application completed and sent to [facility]. Tentative discharge scheduled for tomorrow. CM to follow. Plan: [facility] and awaiting approval from [facility] for wound vac Date Signed: 02/15/2017 02:01 PM Electronically Signed By:LEEANN Roberson
--- NOTE | 2017-02-15 16:18 | ASMTCMCOM ---
CM Note CM Note Notes: CM delivered wound vac to pt. Pt signed confirmation page. A copy is in pts chart. CM faxed signed confirmation to Shanel at [facility]. CM notified [facility] Mcgee and EMPERATRIZ Freeman. Date Signed: 02/15/2017 04:18 PM Electronically Signed By:LEEANN Roberson
[2017-02-15] MEDS ORDERED: diphenhydrAMINE 25 MG CAP PO PRN (17:08)
[2017-02-16] MEDS: PIPERACILLIN/TAZO 3.375 GM/DEX 50 ML IV SCH ×4 (00:27→17:42)
[2017-02-16] MEDS: HYDROCODONE/APAP 5/325 TAB PO PRN ×3 (01:53→18:44)
[2017-02-16] MEDS: ASPIRIN EC 81 MG TAB PO SCH (09:22)
[2017-02-16] MEDS: LISINOPRIL 20 MG TAB PO SCH (09:22)
--- NOTE | 2017-02-16 10:37 | SOAPPROG ---
SOK[facility]AD[facility] Progress Note Assessment/Plan: Assessment/Plan: 61 Y F s/p colostomy take down, initially placed for perforated diverticulitis, now s/p I&D of midline abdominal wound infected seroma and IR pelvic drain placement. Cellulitis abdominal wound, abscess. S/p I&D. Vac change today. 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 Pelvic collection. Continue ALEXEI drainage. Cultures +e coli, enterococcus. On zosyn. Consider IV therapy vs oral therapy with augmentin. Dispo: likely home today with wound vac and nursing. Likely augmentin. Also seen by Dr. Anguiano this am. S: Slept better last night. Looser BMs this am. No pain. Tolerating diet. O: alert, nad ctab rrr abd soft, +BS vac to suction ALEXEI drain medium brown and opaque, not grossly feculent 02/16/17 10:35 Objective: Vital Signs Temp Pulse Resp BP Pulse Ox 37.1 C 74 16 147/84 H 97 02/16/17 08:00 02/16/17 08:00 02/16/17 08:00 02/16/17 09:23 02/16/17 08:00 Microbiology 02/12/17 11:45 Gram Stain - Final Abdomen - Swab Wound Culture - Final Escherichia Coli Enterococcus Faecalis 02/12/17 17:40 Gram Stain - Final Other - Syringe Laboratory Results 02/13/17 05:32 02/13/17 05:32 02/15/17 02/16/17 02/17/17 05:59 05:59 05:59 Intake Total 1825 Output Total 40 80 Balance -40 1745 PT 14.5 SEC (12.0-15.0) 02/12/17 07:30 INR 1.11 (0.83-1.16) 02/12/17 07:30 ICD10 Worksheet Patient Problems: Problems Problem Status Onset Abscess Acute Bowel perforation Acute Cellulitis Acute Wound dehiscence Acute Diverticulitis large intestine Acute Osteoarthritis of knee Chronic
[2017-02-16] MEDS: HYDROmorphone HCL/NS/PF 0.4 MG/2 ML SYR IVP PRN (14:20)
[2017-02-16 16:05] VITALS: BP 138/85; PULSE 80; RESP 12; TEMP 98.4; O2SAT 100
--- NOTE | 2017-02-16 16:19 | PDIAF ---
- Diagnosis Diagnosis: s/p colostomy takedown, pelvic and abdominal fluid infections Code Status: Full Code - Medication Management Discharge Medications: Medications to Continue on Transfer Aspirin EC [Aspirin EC 81 mg (*)] 81 mg PO DAILY 10/25/16 [Last Taken 02/06/17] Herbals/Supplements -Info Only 1 ea PO DAILY 10/25/16 [Last Taken 2 Weeks Ago ~ 01/14/17] Lisinopril [Zestril 20 mg (*)] 20 mg PO DAILY 10/25/16 [Last Taken 02/11/17] Meloxicam 15 mg PO DAILY 10/25/16 [Last Taken 2 Weeks Ago ~01/14/17] Obion-3 Fatty Acids [Fish Oil 1000 mg (*)] 1,000 mg PO DAILY 10/25/16 [Last Taken 2 Weeks Ago ~01/14/17] amLODIPine BESYLATE [Norvasc 2.5 mg (*)] 2.5 mg PO DAILY 10/25/16 [Last Taken ] Ibuprofen [Motrin (*)] 600 mg PO Q4-6PRN PRN 02/12/17 [Last Taken Unknown] Amoxicillin/Clavulanate Pot [Augmentin 875 MG TAB (*)] 875 mg PO BID #20 tab [Last Taken Unknown] oxyCODONE/APAP 5/325 [Percocet 5/325 (*)] 1 tab PO Q4H PRN #20 tab 02/16/17 [ Last Taken Unknown] Discharge Medications: Refer to the Discharge Home Medication list for PRN reason. - Orders Services needed: Home Care, Registered Nurse Home Care Face to Face: I certify that this patient was under my care and that I had the required [id number] encounter meeting the encounter requirements on the discharge day. My findings support the fact that the patient is homebound as defined in Home Care Face to Face Continued: CMS Chapter 7 Medicare Benefits Manual 30.1.1 , The condition of the patient is such that there exists a normal inability to leave home and consequently, leaving home would require a considerable and taxing effort. Isolation Type: None Diet Recommendation: no restrictions on diet Diet Texture: Regular Texture Diet Wound Care Instructions: Wound vac change M, W, F please. The two wounds communicate. May use one billings foam, but will likely be easier to use two billings foams and create bridge to between the two. - Follow Up Care Current Providers and Referrals: Dipak Ocampo MD [Primary Care Provider] - As per Instructions Domo Anguiano MD [Medical Doctor] - follow up in 1 week
--- NOTE | 2017-02-16 16:34 | WOCRNPDOC ---
WOCRN Advanced Assessment Note - Skin Integrity Problem, Advanced Assess Abdomen Surgical Wound/Incision Dressing Type: Black Vac Foam, Wound Vac (veraflo) Dressing Description: Intact Exudate Amount: Minimal Exudate Color: Red Exudate Characteristic(s): Serosanguinous Integumentary Issue Intervention: Dressing Changed Gail Wound Tissue: Scarred Gail Wound Swelling: Mild Wound Bed Color: Red, Yellow Wound Bed Constitution: Granulation Tissue, Adhered Slough (in distal wound) Site Odor: None Site Measurement - Head-to-Toe Length X Width X Depth (cm): 4.2x2.5x3.4 ( superior), 5x2.5x8 (inferior). Total wound length running from 12-6 oclock is 17.5 cm Skin Integrity Problem Comment: Two, discrete openings noted along midline abdomen, connected by a narrow tract. I was able to insert a cotton-tipped applicator into the superior wound, insert it distally, and visualize it in the inferior wound, for a total wound length of 17.5cm. Superior wound is 100% beefy , red granulation tissue, no necrosis noted. Inferior wound has a small opening into the abdomen which opens up and widens back to an 8cm deep wound. There is 50% adhered slough at the wound opening, 50% granulation tissue. No periwound erythema or swelling. Black [place] foam packed gently into superior wound, angled distally. No foam packed into tract between wounds, as it is too narrow. Inferior wound packed w/ Black Simplace foam, and bridged to meet superior wound dressing along right lateral abdomen. Vac set to -125mmHg, low, continuous suction, w/ no leaks. Patient to DC today with home wound vac, will have dressing changes at home by home health RN on [facility]. Follow-up with Dr. Anguiano in his office.
--- NOTE | 2017-02-16 17:56 | ASMTCMCOM ---
CM Note CM Note Notes: Pt dc'd, CM notified [facility] digital media sales consultant RN Ivelisse. DC Plan: Home with [facility] wound vac and [facility] / RN Date Signed: 02/16/2017 05:56 PM Electronically Signed By:Tayler Caballero RN
--- NOTE | 2017-02-17 17:56 | ASDISCHSUM ---
Discharge Information Plan Status:Home with Home Health Medically Cleared to Leave: Discharge Date:02/16/2017 06:50 PM CM D/C Disposition:Home Health Service ADT D/C Disposition:Home, Routine, Self-Care Projected Discharge Date:02/16/2017 11:00 AM Transportation at D/C: Discharge Delay Reason: Follow-Up Date:02/16/2017 11:00 AM Discharge Slot: Final Diagnosis: Placement Information Referral Type:*Home Health Care Services Referral ID:[id number] Provider Name:[facility] Address 1:[address] Address 2: City:[place] Selection Factors: State:[place] Referral Type:[facility] Referral Referral ID:[id number] Provider Name:[facility] [place] [facility] Intake/[employer] Address 1:[address] Address 2: City:[place] Selection Factors: State:[place] Patient Contact Information Contact Name:PATTY Relationship: Address:[address] City:[place] Alternate Phone: [facility]/Zip Code:[place] [address] Email: Financial Information Financial Class:HMO and PPO Plans Primary Plan Desc:H[employer] [place] [employer] Primary Plan Number:[id number] Secondary Plan Desc: Secondary Plan Number: Assessment Information LACE LACE Acuity / Level of Care Answers: Was the patient admitted to hospital via the emergency department? Yes: Emergency dept visits in Answers: 1 last 6 months Score: 4 Date Signed: 02/12/2017 11:08 AM Electronically Signed By:Elba Ramsay RN [facility] Initial CM Assessment Living Arrangements What is your living Answers: With Spouse arrangement? Who do you live with? Type Of Residence What kind of residence do Answers: House you live in? Discharge Plan Comments Coordination Status Comments Notes: Pt is a 61 y/o female admitted for a bowel perf, wound dihiscence and skin infection. Therapies have been ordered and pt has been cleared to d/c home independent. Pt will need a wound vac at time of d/c. CM made referral to [facility]. CM spoke w/ EMPERATRIZ Freeman regarding d/c POC. Anticipates that pt will d/c on . Pt will need a RN to follow. MARIA ESTHER met w/ pt for dispo planning. Pt reports that she had [facility] in the past and reports that she would like to use them again. CM made referral to [facility] and they are able to accept. CM to follow. Plan: KEON, RN with wound vac Date Signed: 02/14/2017 03:23 PM Electronically Signed By:LEEANN Roberson [facility] MARIA ESTHER Progress Note CM Note CM Note Notes: [facility] wound vac application completed and sent to [facility]. Tentative discharge scheduled for tomorrow. CM to follow. Plan: [facility] and awaiting approval from [facility] for wound vac Date Signed: 02/15/2017 02:01 PM Electronically Signed By:LEEANN Roberson [facility] MARIA ESTHER Progress Note CM Note CM Note Notes: CM delivered wound vac to pt. Pt signed confirmation page. A copy is in pts chart. CM faxed signed confirmation to Shanel at [facility]. CM notified [facility] Mcgee and EMPERATRIZ Freeman. Date Signed: 02/15/2017 04:18 PM Electronically Signed By:LEEANN Roberson [facility] CM Progress Note CM Note CM Note Notes: Pt dc'd, CM notified [facility] vp information technology [place]. DUNIA Plan: Home with [facility] wound vac and [facility] / RN Date Signed: 02/16/2017 05:56 PM Electronically Signed By:Tayler Caballero RN Case Management Discharge Plan Note Case Management Discharge Discharge Order Complete? Answers: Yes Patient to Obtain Answers: Independently Medications Transportation Arranged Answers: Family/Friends Faxed Final Orders Answers: No Notes: In chart for [facility] Discharge Comments Notes: D/w RN, final orders in. Ivelisse from [facility] LOS gooden to call report. Date Signed: 02/16/2017 05:58 PM Electronically Signed By:Tayler Caballero RN Intervention Information
== END 2017-02-16 18:50 | disposition home health service (06) | DRG 863 ==
LOC: F2N 12:34 → F3E 02-13 09:57
PROVIDERS: ADMIT Surgery; ATTEND Surgery
PROC: 0J980ZX Drainage of Abdomen Subcutaneous Tissue and Fascia, Open Approach, Diagnostic (ICD-10-PCS; principal; 2017-02-12)
DX: T81.4XXA Infection following a procedure, initial encounter (principal); L76.34 Postprocedural seroma of skin and subcutaneous tissue following other procedure; L02.211 Cutaneous abscess of abdominal wall; L03.311 Cellulitis of abdominal wall; B96.20 Unspecified Escherichia coli [E. coli] as the cause of diseases classified elsewhere; B95.2 Enterococcus as the cause of diseases classified elsewhere; I10 Essential (primary) hypertension; Z98.1 Arthrodesis status; Z96.653 Presence of artificial knee joint, bilateral
CPT/HCPCS: 82947-QW; 96365; 97161-GP; 97166-GO; J1170; J1335; J2250; J2310; J2405; J2543; J3010; J3370; Q9967